=== PATIENT | male | born 1950 | race Caucasian/White ===

== ENCOUNTER 2020-08-09 13:07 | Emergency (ER) | payer OTHER ==
[2020-08-09 14:17] LABS: Absolute Lymphocytes (CBC) 2.4 K/uL (0.7-4.9); Basophils % 0.5 % (0-1.3); Hematocrit 41.5 % (39.6-49.0); Lymphocytes % 25.2 % (15.3-44.8); MPV 8.7 fL (7.6-11.3); RBC Red Blood Cell Count 4.47 M/uL (4.33-5.43)
[2020-08-09 14:17] LABS: Urine Blood 3+ (NEG); Urine Glucose 3+ (NEG); Urine Protein 1+ (NEG)
[2020-08-09] MEDS ORDERED: NA CHLORIDE 0.9% 500 ML ONE (14:32)
[2020-08-09 14:35] LABS: Urine Bacteria <20 /HPF (NONE SEEN); Urine RBC 20-50 /HPF (NONE SEEN)
[2020-08-09 14:36] LABS: ALT/SGPT 18 U/L (12-78); AST/SGOT 8 U/L (15-37); Albumin 3.6 g/dL (3.4-5.0); Alkaline Phosphatase 76 U/L (45-117); BUN Blood Urea Nitrogen 11 mg/dL (7-18); Bicarbonate 31 mmol/L (21-32); Bilirubin Direct < 0.1 mg/dL (0-0.2); Bilirubin Total 0.5 mg/dL (0.2-1.0); Glucose Level 356 mg/dL (74-106); Lipase 540 U/L (73-393); Potassium 4.1 mmol/L (3.5-5.1); Protein, Total 7.1 g/dL (6.4-8.2); Sodium Level 136 mmol/L (136-145)
[2020-08-09] MEDS ORDERED: INSULIN -REGULAR HUMAN 50 UNIT/0.5 ML ML ONE (15:51)
[2020-08-09] MEDS ORDERED: CEFTRIAXONE/SWI 1gm 1 GM/10 ML SYR ONE (15:51)
--- NOTE | 2020-08-09 16:19 | RAD REPORT ---
EXAM DESCRIPTION: CT - Stone Protocol - 08/09/2020 3:50 pm CLINICAL HISTORY: Hematuria COMPARISON: None. TECHNIQUE: Computed axial tomography of the abdomen pelvis was obtained without oral or IV contrast. Lack of IV and oral contrast limits evaluation of solid organs, bowel, and vessels. Coronal reformat abbey images were obtained and reviewed. All CT scans are performed using dose optimization technique as appropriate and may include automated exposure control or mA/KV adjustment according to patient size. FINDINGS: Two calculi right kidney measuring between 1 and 2 millimeters. No hydronephrosis. 5.4 joel timeter low-density right renal mass contains a few peripheral calcifications. A left renal calculus is not seen. A ureteral calculus is not visualized. No bladder calculus. The liver, spleen, pancreas and adrenals appear grossly normal There is no evidence of diverticulitis. The appendix appears normal Small inguinal hernias contain fat. Duodenal diverticulum. Spondylosis involves lumbar spine resultin g in spinal stenosis. Small hiatal hernia IMPRESSION: Small nonobstructing right renal calculi 5.4 centimeter low-density right renal mass contains a few peripheral calcifications. It probably is benign. It is recommended that the patient have a nonemergent renal ultrasound.
--- NOTE | 2020-08-09 16:37 | EDPHYS ---
Physician Documentation [facility] Name: Chapo Burr Age: 70 yrs Sex: Male : 1950 Arrival Date: 08/09/2020 Time: 13:10 Bed 19 Private MD: ED Physician Daniel Rosas HPI: 08/09 13:43 This 70 yrs old Male presents to ER via Ambulatory with complaints of Blood cp In Urine. 13:43 The patient presents with urinary symptoms, dysuria, hematuria. Onset: The cp symptoms/episode began/occurred 2 day(s) ago. Associated signs and symptoms: Pertinent positives: dysuria, hematuria, Pertinent negatives: abdominal pain, constipation, diarrhea, fever, nausea, vomiting. Severity of symptoms: in the emergency department the symptoms are unchanged, despite home interventions. Historical: - Allergies: 13:25 No Known Allergies; sv - PMHx: 13:25 Diabetes - NIDDM; sv - PSHx: 13:25 Tonsillectomy; sv - Immunization history:: Adult Immunizations up to date. - Social history:: Smoking status: Patient denies any tobacco usage or history of. ROS: 13:50 Constitutional: Negative for body aches, chills, fever, poor PO intake. cp 13:50 Eyes: Negative for injury, pain, redness, and discharge. cp 13:50 Cardiovascular: Negative for chest pain, edema, palpitations. 13:50 Respiratory: Negative for cough, shortness of breath, wheezing. 13:50 Abdomen/GI: Negative for abdominal pain, nausea, vomiting, and diarrhea, constipation, black/tarry stool, rectal bleeding. 13:50 : Positive for hematuria, burning with urination, Negative for penile discharge, testicular pain 13:50 Skin: Negative for rash. 13:50 Neuro: Negative for altered mental status, headache, weakness. 13:50 All other systems are negative. Exam: 13:55 Constitutional: The patient appears in no acute distress, alert, awake, comfortable, cp non-toxic, well developed, well nourished. 13:55 Head/Face: Normocephalic, atraumatic. cp 13:55 Eyes: Periorbital structures: appear normal, Conjunctiva: normal, no exudate, no injection, Sclera: no appreciated abnormality, Lids and lashes: appear normal, bilaterally. 13:55 ENT: External ear(s): are unremarkable, Nose: is normal, Mouth: Lips: moist, Oral mucosa: moist, Posterior pharynx: Airway: no evidence of obstruction, patent. 13:55 Chest/axilla: Inspection: normal, Palpation: is normal, no crepitus, no tenderness. 13:55 Cardiovascular: Rate: normal, Rhythm: regular, Edema: is not appreciated, JVD: is not appreciated. 13:55 Respiratory: the patient does not display signs of respiratory distress, Respirations: normal, no use of accessory muscles, no retractions, labored breathing, is not present, Breath sounds: are clear throughout, no decreased breath sounds, no stridor, no wheezing. 13:55 Abdomen/GI: Inspection: abdomen appears normal, Bowel sounds: active, all quadrants, Palpation: abdomen is soft and non-tender, in all quadrants. 13:55 Back: CVA tenderness, is absent. 13:55 Skin: cellulitis, is not appreciated, no rash present. 13:55 Neuro: Orientation: to person, place \T\ time. Mentation: is normal, Motor: moves all fours, strength is normal. Vital Signs: 13:25 BP 99 / 62; Pulse 83; Resp 16; Temp 98.3; Pulse Ox 100% ; Weight 77.11 kg; Height 5 ft. sv 10 in. (177.80 cm); Pain 0/10; 14:11 BP 105 / 65 Supine; Pulse 73; Resp 16; Pulse Ox 100% on R/A; mh5 14:13 BP 94 / 62 Sitting; Pulse 80; Resp 16; Pulse Ox 98% on R/A; mh5 14:15 BP 117 / 65 Standing; Pulse 81; Resp 16; Pulse Ox 99% on R/A; mh5 15:30 BP 138 / 58; Pulse 71; Resp 18; Pulse Ox 97% on R/A; zb 16:53 BP 142 / 62; Pulse 80; Resp 16; Pulse Ox 98% on R/A; zb 13:25 Body Mass Index 24.39 (77.11 kg, 177.80 cm) sv MDM: 13:41 Patient medically screened. cp 14:00 Differential diagnosis: UTI, prostatitis, urethritis, kidney stone, kidney carcinoma. cp 16:35 Data reviewed: vital signs, nurses notes, lab test result(s), radiologic studies, CT cp scan. 16:35 Counseling: I had a detailed discussion with the patient and/or guardian regarding: the cp historical points, exam findings, and any diagnostic results supporting the discharge/admit diagnosis, lab results, radiology results, the need for outpatient follow up, for definitive care, a family practitioner, a urologist, to return to the emergency department if symptoms worsen or persist or if there are any questions or concerns that arise at home. ED course: VSS. Labs and radiology studies reviewed. Patient appears non-toxic, labs negative for DKA. Patient reports he is attempting to manage diabetes with diet. Discussed today's blood glucose readings and kidney mass, recommendation for f/u with family physician and urology. Will discharge to home for continued monitoring. 08/09 13:34 Order name: Urine Microscopic Only; Complete Time: 15:16 cp 08/09 15:16 Interpretation: Normal except: UWBC 10-20; URBC 20-50. cp 08/09 13:38 Order name: Basic Metabolic Panel; Complete Time: 15:16 cp 08/09 15:22 Interpretation: Normal except: GLUC 356; GFR 85. cp 08/09 13:38 Order name: CBC with Diff; Complete Time: 15:16 cp 08/09 13:38 Order name: Hepatic Function; Complete Time: 15:16 cp 08/09 13:38 Order name: Lipase; Complete Time: 15:16 cp 08/09 13:44 Order name: CK; Complete Time: 15:16 cp 08/09 13:34 Order name: Urine Dipstick-Ancillary (obtain specimen); Complete Time: 14:20 cp 08/09 13:38 Order name: IV Saline Lock; Complete Time: 14:20 cp 08/09 14:06 Order name: Urine Dipstick--Ancillary (enter results); Complete Time: 15:16 bd 08/09 14:36 Order name: Urine Culture EDMS 08/09 15:17 Order name: CT Stone Protocol; Complete Time: 16:28 cp 08/09 13:38 Order name: Labs collected and sent; Complete Time: 14:19 cp 08/09 13:38 Order name: Orthostatics; Complete Time: 14:19 cp Administered Medications: 14:40 Drug: NS 0.9% 500 ml Route: IV; Rate: 500 ml/hr; Site: right forearm; zb 15:20 Follow up: Response: No adverse reaction; IV Status: Completed infusion; IV Intake: zb 500ml 15:41 Drug: Rocephin 1 grams Route: IV; Rate: calculated rate; Site: right forearm; zb 15:42 Drug: NovoLIN R 5 units {Co-Signature: bp (Den Tierney RN).} Route: Sub-Q; Site: left zb upper abdomen; Disposition: 17:35 Co-signature as Attending Physician, Daniel Rosas MD I agree with the assessment and kdr plan of care. Disposition: 08/09/20 16:36 Discharged to Home. Impression: Calculus of kidney, Diabetes mellitus due to underlying condition with hyperglycemia, Right Kidney Mass. - Condition is Stable. - Discharge Instructions: Type 2 Diabetes Mellitus, Diagnosis, Adult, Kidney Stones, Blood Glucose Monitoring, Adult, Diabetes Mellitus and Food. - Prescriptions for Metformin 500 mg Oral Tablet - take 1 tablet by ORAL route once daily for 7 days Then take 1 tablet with morning meals AND evening meals; 21 tablet. Cipro 500 mg Oral Tablet - take 1 tablet by ORAL route every 12 hours for 10 days; 20 tablet. - Medication Reconciliation Form, Thank You Letter, Antibiotic Education, Prescription Opioid Use form. - Follow up: Jose Rose MD; When: 2 - 3 days; Reason: right kidney mass. Follow up: Private Physician; When: 1 - 2 days; Reason: diabetes mellitus. - Problem is new. - Symptoms have improved. Signatures: Dispatcher [employer] EDMasha Rene RN RN sv Rittger, Kevin, MD MD kdr Paras Reece PA PA cp Brown, Zipporah, RN RN zb Den Tierney RN bp Corrections: (The following items were deleted from the chart) 16:55 16:36 08/09/2020 16:36 Discharged to Home. Impression: Calculus of kidney; Diabetes zb mellitus due to underlying condition with hyperglycemia; Right Kidney Mass. Condition is Stable. Forms are Medication Reconciliation Form, Thank You Letter, Antibiotic Education, Prescription Opioid Use. Follow up: Jose Rose; When: 2 - 3 days; Reason: right kidney mass. Follow up: Private Physician; When: 1 - 2 days; Reason: diabetes mellitus. Problem is new. Symptoms have improved. cp
--- NOTE | 2020-08-09 16:37 | ER ---
Nurse's Notes [facility] Name: Chapo Burr Age: 70 yrs Sex: Male : 1950 Arrival Date: 08/09/2020 Time: 13:10 Bed 19 Private MD: Diagnosis: Calculus of kidney;Diabetes mellitus due to underlying condition with hyperglycemia;Right Kidney Mass Presentation: 08/09 13:24 Chief complaint: Patient states: hematuria x 2 days. Coronavirus screen: Client denies sv travel out of the [place] in the last 14 days. At this time, the client does not indicate any symptoms associated with coronavirus-19. Ebola Screen: No symptoms or risks identified at this time. Risk Assessment: Do you want to hurt yourself or someone else? Patient reports no desire to harm self or others. Onset of symptoms was August 07, 2020. 13:24 Method Of Arrival: Ambulatory sv 13:24 Acuity: JANES 3 sv 13:25 Initial Sepsis Screen: Does the patient meet any 2 criteria? No. Patient's initial sv sepsis screen is negative. Does the patient have a suspected source of infection? No. Patient's initial sepsis screen is negative. Historical: - Allergies: 13:25 No Known Allergies; sv - PMHx: 13:25 Diabetes - NIDDM; sv - PSHx: 13:25 Tonsillectomy; sv - Immunization history:: Adult Immunizations up to date. - Social history:: Smoking status: Patient denies any tobacco usage or history of. Screenin:48 Abuse screen: Denies threats or abuse. Denies injuries from another. Nutritional zb screening: No deficits noted. Tuberculosis screening: No symptoms or risk factors identified. Fall Risk None identified. Assessment: 14:00 General: Appears in no apparent distress. comfortable, Behavior is calm, cooperative, zb appropriate for age. Pain: Complains of pain in groin Pain does not radiate. Quality of pain is described as burning, Aggravated by peeing. Neuro: Level of Consciousness is awake, alert, obeys commands, Oriented to person, place, time, situation. Cardiovascular: Capillary refill < 3 seconds in bilateral fingers Patient's skin is warm and dry. Respiratory: Airway is patent Respiratory effort is even, unlabored, Respiratory pattern is regular, symmetrical, Breath sounds are diminished bilaterally. GI: Abdomen is round non-distended, Bowel sounds present X 4 quads. Abd is soft and non tender X 4 quads. : Urine is cloudy, blood tinged, Reports burning with urination, since 3 days urinary frequency, since 3 days. EENT: No signs and/or symptoms were reported regarding the EENT system. Derm: Skin is intact, is healthy with good turgor, Skin is dry, Skin is normal, Skin temperature is warm. Musculoskeletal: Circulation, motion, and sensation intact. Capillary refill < 3 seconds, Range of motion: intact in all extremities. 15:00 Reassessment: Patient appears in no apparent distress at this time. Patient and/or zb family updated on plan of care and expected duration. Pain level reassessed. Patient is alert, oriented x 3, equal unlabored respirations, skin warm/dry/pink. pt waiting in room quietly. 15:45 Reassessment: pt taken for ct scan. zb 16:53 Reassessment: Patient appears in no apparent distress at this time. Patient and/or zb family updated on plan of care and expected duration. Pain level reassessed. Patient is alert, oriented x 3, equal unlabored respirations, skin warm/dry/pink. pt received d/c information. encourage to follow up with a provider. gait steady and even. Vital Signs: 13:25 BP 99 / 62; Pulse 83; Resp 16; Temp 98.3; Pulse Ox 100% ; Weight 77.11 kg; Height 5 ft. sv 10 in. (177.80 cm); Pain 0/10; 14:11 BP 105 / 65 Supine; Pulse 73; Resp 16; Pulse Ox 100% on R/A; mh5 14:13 BP 94 / 62 Sitting; Pulse 80; Resp 16; Pulse Ox 98% on R/A; mh5 14:15 BP 117 / 65 Standing; Pulse 81; Resp 16; Pulse Ox 99% on R/A; mh5 15:30 BP 138 / 58; Pulse 71; Resp 18; Pulse Ox 97% on R/A; zb 16:53 BP 142 / 62; Pulse 80; Resp 16; Pulse Ox 98% on R/A; zb 13:25 Body Mass Index 24.39 (77.11 kg, 177.80 cm) sv ED Course: 13:10 Patient arrived in ED. ag5 13:24 Triage completed. sv 13:24 Arm band placed on. sv 13:33 Paras Reece PA is PHCP. cp 13:33 Daniel Rosas MD is Attending Physician. cp 13:35 Rosa Maria Belcher, CRYSTAL is Primary Nurse. zb 14:20 Urine Microscopic Only Sent. mh5 14:23 Patient has correct armband on for positive identification. Bed in low position. Call mh5 light in reach. Pulse ox on. NIBP on. 14:23 Urine collected: clean catch specimen, cloudy. mh5 14:48 Inserted saline lock: 20 gauge in right forearm, using aseptic technique. zb 15:48 CT Stone Protocol In Process Unspecified. EDMS 16:34 Jose Rose MD is Referral Physician. cp 16:54 No provider procedures requiring assistance completed. IV discontinued, intact, zb bleeding controlled, No redness/swelling at site. Pressure dressing applied. Administered Medications: 14:40 Drug: NS 0.9% 500 ml Route: IV; Rate: 500 ml/hr; Site: right forearm; zb 15:20 Follow up: Response: No adverse reaction; IV Status: Completed infusion; IV Intake: zb 500ml 15:41 Drug: Rocephin 1 grams Route: IV; Rate: calculated rate; Site: right forearm; zb 15:42 Drug: NovoLIN R 5 units {Co-Signature: bp (Den Tierney RN).} Route: Sub-Q; Site: left zb upper abdomen; Intake: 15:20 IV: 500ml; Total: 500ml. zb Outcome: 16:36 Discharge ordered by MD. cp 16:55 Discharged to home ambulatory. zb 16:55 Condition: stable 16:55 Discharge instructions given to patient, Instructed on discharge instructions, follow up and referral plans. medication usage, Demonstrated understanding of instructions, follow-up care, medications, Prescriptions given X 2. 16:55 Patient left the ED. zb Signatures: Dispatcher [employer] EDNE Masha Mariee RN RN sv Page, Corey, PA PA cp Martinez, Maria 5 Fredrick Rhodes ag5 Rosa Maria Belcher RN RN ztony Tierney RN bp Corrections: (The following items were deleted from the chart) 13:27 13:25 Pulse 83bpm; Resp 16bpm; Pulse Ox 100%; Temp 98.3F; 77.11 kg; Height 5 ft. 10 sv in.; BMI: 24.3; Pain 0/10; sv
[2020-08-09 16:59] VITALS: TEMP 98.3
[2020-08-09 17:05] VITALS: BP 142/62; O2SAT 98
== END 2020-08-09 16:55 | disposition home or self-care (01) ==
LOC: ER 13:07
DX: N20.0 Calculus of kidney (principal); E11.65 Type 2 diabetes mellitus with hyperglycemia; N28.89 Other specified disorders of kidney and ureter
CPT/HCPCS: 87088; 85025; 87086; 80048; 36415; 82550; 80076; 83690; 76377; 74176; J0696; J7040; 81003; 81015; 87077; 87186; 96361; 96372; 96374; 99284

== ENCOUNTER 2021-01-14 17:20 | Emergency (ER) | payer OTHER ==
--- OUTSIDE RECORDS SUMMARY | 2021-01-14 17:23 | XMS REPORT | Continuity of Care Document ---
:1950 Author Organization [facility] t Address [address] [place] [address] Care Team Providers Name Role Phone Unavailable Unavailable Unavailable Problems This patient has no known problems. Allergies, Adverse Reactions, Alerts This patient has no known allergies or adverse reactions. Medications This patient has no known medications. Procedures This patient has no known procedures. Encounters Start End Encounter Admission Attending Care Care Encounter Source Date/Time Date/Time Type Type Clinicians Facility Department ID 2020-12-20 2020-12-20 Outpatient [facility] [id number] JAKOB Kim 00:00:00 00[facility]00:00 [facility] 2020-11-18 2020-11-18 Outpatient [facility] [id number] [facility] 00:00:00 00:00:00 [facility] 2020-10-24 2020-10-24 Outpatient [facility] [id number] [facility] 00[facility]00:00 00[facility]00:00 [facility] 2020-09-25 2020-09-25 Outpatient [facility] [id number] [facility] 00:00:00 [facility]00:00 [facility] 2020-09-25 2020-09-25 Outpatient [facility] [id number] [facility] 00[facility]00:00 00[facility]00:00 [facility] 2020-09-12 2020-09-12 Outpatient [facility] [id number] [facility] 00[facility] 00:[facility]:00 [facility] 2020-08-25 2020-08-25 Outpatient [facility] [id number] [facility] 00:[facility] 00[facility]:00 [facility] Results This patient has no known results.
[2021-01-14 18:18] LABS: Absolute Lymphocytes (CBC) 1.3 K/uL (0.7-4.9); Basophils % 0.3 % (0-1.3); Hematocrit 41.4 % (39.6-49.0); Lymphocytes % 17.8 % (15.3-44.8); MPV 8.2 fL (7.6-11.3); RBC Red Blood Cell Count 4.55 M/uL (4.33-5.43)
[2021-01-14 18:22] LABS: Protime INR 1.15
[2021-01-14 18:39] LABS: ALT/SGPT 62 U/L (12-78); AST/SGOT 75 U/L (15-37); Albumin 3.3 g/dL (3.4-5.0); Alkaline Phosphatase 63 U/L (45-117); BUN Blood Urea Nitrogen 26 mg/dL (7-18); Bicarbonate 25 mmol/L (21-32); Bilirubin Direct 0.4 mg/dL (0-0.2); Glucose Level 200 mg/dL (74-106); Magnesium 2.5 mg/dL (1.8-2.4); NT PRO-BNP 89 pg/mL (<125); Potassium 3.7 mmol/L (3.5-5.1); Protein, Total 7.2 g/dL (6.4-8.2); Sodium Level 133 mmol/L (136-145); Troponin (Emerg Dept Use Only) < 0.02 ng/mL (0.0-0.045)
--- NOTE | 2021-01-14 19:10 | RAD REPORT ---
EXAM DESCRIPTION: RAD - Chest Single View - 01/14/2021 6:16 pm CLINICAL HISTORY: fever, sob Chest pain. COMPARISON: No comparisons FINDINGS: Portable technique limits examination quality. Mild reticular opacities in both lung bases probably represents atypical infection. No airspace conso lidation typical of bacterial pneumonia is seen. The heart is normal in size. No displaced fractures.
[2021-01-14] MEDS ORDERED: dexAMETHasone 10 MG/ML VIAL ONE (19:49)
--- NOTE | 2021-01-14 21:26 | ER ---
Nurse's Notes [facility] Name: Chapo Burr Age: 70 yrs Sex: Male : 1950 Arrival Date: 01/14/2021 Time: 17:21 Bed 4 Private MD: Diagnosis: Coronavirus - Hypoxia Presentation: 01/14 17:22 Chief complaint: EMS states: Pt c/o SOB, body aches and fever, symptoms began ph yesterday, SO recently dx w/ COVID. Room air Spo2 92%, improved to 98% on 4L NC, T 101.5, HR 83, BP 134/78. Coronavirus screen: cough unrelated to allergies, difficulty breathing, fever, muscle pain, shortness of breath, Client presents with at least one sign or symptom that may indicate coronavirus-19. Standard/surgical mask placed on the client. Provider contacted for isolation considerations. Ebola Screen: No symptoms or risks identified at this time. Initial Sepsis Screen: Does the patient meet any 2 criteria? RR > 20 per min. Does the patient have a suspected source of infection? Yes: Productive cough/pneumonia. Risk Assessment: Do you want to hurt yourself or someone else? Patient reports no desire to harm self or others. Onset of symptoms was January 14, 2021. 17:22 Method Of Arrival: EMS: [facility] ph 17:22 Acuity: JANES 3 ph Historical: - Allergies: 17:26 No Known Allergies; ph - PMHx: 17:26 Diabetes mellitus; insulin dependent; ph - Immunization history:: Client reports having NOT received the Covid vaccine. - Social history:: Smoking status: Patient denies any tobacco usage or history of. Screenin:28 Abuse screen: Denies threats or abuse. Denies injuries from another. Nutritional ph screening: No deficits noted. Tuberculosis screening: No symptoms or risk factors identified. Fall Risk None identified. Assessment: 17:28 General: Appears in no apparent distress. comfortable, Behavior is calm, cooperative, ph appropriate for age, Reports chills for fever for 1-2 days. Pain: Complains of pain in "all over". Neuro: Level of Consciousness is awake, alert, obeys commands, Oriented to person, place, time, situation. Cardiovascular: Capillary refill < 3 seconds in bilateral fingers Patient's skin is warm and dry. Respiratory: Reports shortness of breath at rest Airway is patent Respiratory effort is even, unlabored, Respiratory pattern is tachypnea. GI: No signs and/or symptoms were reported involving the gastrointestinal system. Derm: Skin is fragile, is thin, Skin is pink, warm \\T\\ dry. Musculoskeletal: Circulation, motion, and sensation intact. Range of motion: intact in all extremities. 19:06 Reassessment: Patient appears in no apparent distress at this time. Patient and/or ph family updated on plan of care and expected duration. Pain level reassessed. Patient is alert, oriented x 3, equal unlabored respirations, skin warm/dry/pink. 20:38 Reassessment: Pt ambulated approx 50 Ft, O2 sats on RA at 90% after ambulating. ea 21:42 Reassessment: Patient and/or family updated on plan of care and expected duration. Pain ea level reassessed. Patient is alert, oriented x 3, equal unlabored respirations, skin warm/dry/pink. Pt ambulated to restroom, RA O2 sats at 88% RA, pt placed on O2 at 2 L per nasal cannula. 01/15 02:12 General: report called to rn at [facility]. ak2 Vital Signs: 01/14 17:22 BP 147 / 75; Pulse 80; Resp 22; Temp 99.5(O); Pulse Ox 96% on R/A; Weight 80.74 kg; ph Height 5 ft. 9 in. (175.26 cm); 18:30 BP 127 / 74; Pulse 74; Resp 21; Pulse Ox 97% on R/A; sv 19:06 BP 127 / 74; Pulse 77; Resp 18; Pulse Ox 99% on R/A; ph 20:30 Pulse Ox 90% on R/A; dh4 21:41 BP 117 / 72; Pulse 74; Resp 24; Pulse Ox 88% on R/A; ea 23:03 BP 112 / 64; Pulse 74; Resp 20; Pulse Ox 98% on 2 lpm NC; ea 01/15 01:05 BP 110 / 68; Pulse 76; Resp 16; Pulse Ox 98% on 2 lpm NC; ak2 02:29 BP 113 / 72; Pulse 72; Resp 16; Pulse Ox 98% on R/A; ak2 01/14 17:22 Body Mass Index 26.29 (80.74 kg, 175.26 cm) ph 07/18 21:41 pt placed on O2 at 2 L per nasal cannula ea ED Course: 17:21 Patient arrived in ED. ds1 17:26 Triage completed. ph 17:27 Arm band placed on Patient placed in an exam room, on thermograph operator, on pulse ph oximetry. 17:28 Patient has correct armband on for positive identification. Bed in low position. Call ph light in reach. Side rails up X 1. tug master on. Pulse ox on. NIBP on. Door closed. Noise minimized. 17:31 Jermaine Benoit PA is PHCP. jm 17:31 Yared Lainez MD is Attending Physician. jmm 17:50 First set of blood cultures drawn by me. sv 18:00 Second set of blood cultures drawn by me. Inserted saline lock: 20 gauge in right sv forearm, using aseptic technique. Blood collected. Flushed right forearm with 2 ml normal saline. 18:08 Caprice Tipton RN is Primary Nurse. ph 18:10 COVID-19 : Document "Date of Symptom Onset" if Symptomatic. Sent. sv 18:10 Basic Metabolic Panel Sent. sv 18:16 XRAY Chest (1 view) In Process Unspecified. EDMS 18:54 EKG done, by ED staff, reviewed by Jermaine BERNARD. sv 19:09 Report given to Yesy RN and Otf RN. sv 19:32 Primary Nurse role handed off by Caprice Tipton, RN tt3 22:42 CT Chest For PE Angio In Process Unspecified. EDMS 01/15 00:08 Faxed pt chart to [facility] to initiate transfer. tt3 00:23 Zenaida Huffman called back from [facility] to speak with MARCO ANTONIO Luna, pt provider tt3 regarding the transfer request. 00:32 Initiated transfer with Shayla White from [facility]. Stated she tt3 would page the hospitalist at the [facility] after confirming during initiating that the pt was okay with going to the [facility]. Information passed on to MARCO ANTONIO Luna, pt provider. 00:57 Shayla White called back with the hospitalist from [facility] to tt3 consult with MARCO ANTONIO Luna, pt provider, regarding the transfer request. 01:37 Margoth Nick gave admin approval. The pt is going to [address] The accepting physician is Dr. Zayas. Nurse to call report to . Face sheet to be faxed to per Margoth's request. 02:30 No provider procedures requiring assistance completed. ak2 Administered Medications: 01/14 19:30 Drug: Decadron - Dexamethasone 10 mg Route: IVP; Site: left antecubital; ph 23:03 Follow up: Response: No adverse reaction ea Outcome: 21:26 Discharge ordered by . leanne 01/15 01:02 ER care complete, transfer ordered by MD. reddy 02:30 Transferred by ground EMS to [facility]. ak2 02:30 Condition: good 02:30 Patient left the ED. ak2 Signatures: Dispatcher [employer] Masha Reyes, RN Jermaine Leon PA PA jmm Sanford, Demi ds1 Caprice Tipton RN RN ph Antunez, Elena RN Ayo Brownlee ea 4 Liset, Suhas 3 Alvaro Valdez2
--- NOTE | 2021-01-14 21:26 | EDPHYS ---
Physician Documentation [facility] Name: Chapo Burr Age: 70 yrs Sex: Male : 1950 Arrival Date: 01/14/2021 Time: 17:21 Bed 4 Private MD: ED Physician Yared Lainez HPI: 01/14 17:43 This 70 yrs old Male presents to ER via EMS with complaints of Covid Exposure.jmm 17:43 Onset: The symptoms/episode began/occurred gradually, 2 week(s) ago. Modifying factors: jmm The symptoms are alleviated by nothing, the symptoms are aggravated by exertion. Associated signs and symptoms: Pertinent negatives: fever. This is a 70 year old male with a history of DM, that presents to the ED with complaints of cough, sob, weakness that began approx 2 weeks ago. Admits to exposure to covid 19. Denies chest pain, abdominal pain, vomiting, diarrhea. . Historical: - Allergies: 17:26 No Known Allergies; ph - PMHx: 17:26 Diabetes mellitus; insulin dependent; ph - Immunization history:: Client reports having NOT received the Covid vaccine. - Social history:: Smoking status: Patient denies any tobacco usage or history of. ROS: 17:43 Constitutional: Positive for body aches, chills. jmm 17:43 Respiratory: Positive for cough. 17:43 Neuro: Positive for weakness. 17:43 All other systems are negative. Exam: 17:43 Constitutional: This is a well developed, well nourished patient who is awake, alert, jmm and in no acute distress. Head/Face: atraumatic. Eyes: EOMI, no conjunctival erythema appreciated ENT: Moist Mucus Membranes Neck: Trachea midline, Supple Chest/axilla: Normal chest wall appearance and motion. Cardiovascular: Regular rate and rhythm. No edema appreciated Respiratory: Normal respirations, no respiratory distress appreciated Abdomen/GI: Non distended, soft Back: Normal ROM Skin: General appearance color normal MS/ Extremity: Moves all extremities, no obvious deformities appreciated, no edema noted to the lower extremities Neuro: Awake and alert, normal gait Psych: Behavior is normal, Mood is normal, Patient is cooperative and pleasant Vital Signs: 17:22 BP 147 / 75; Pulse 80; Resp 22; Temp 99.5(O); Pulse Ox 96% on R/A; Weight 80.74 kg; ph Height 5 ft. 9 in. (175.26 cm); 18:30 BP 127 / 74; Pulse 74; Resp 21; Pulse Ox 97% on R/A; sv 19:06 BP 127 / 74; Pulse 77; Resp 18; Pulse Ox 99% on R/A; ph 20:30 Pulse Ox 90% on R/A; dh4 21:41 BP 117 / 72; Pulse 74; Resp 24; Pulse Ox 88% on R/A; ea 23:03 BP 112 / 64; Pulse 74; Resp 20; Pulse Ox 98% on 2 lpm NC; ea 01/15 01:05 BP 110 / 68; Pulse 76; Resp 16; Pulse Ox 98% on 2 lpm NC; ak2 02:29 BP 113 / 72; Pulse 72; Resp 16; Pulse Ox 98% on R/A; ak2 01/14 17:22 Body Mass Index 26.29 (80.74 kg, 175.26 cm) ph 01/14 21:41 pt placed on O2 at 2 L per nasal cannula ea MDM: 17:43 Patient medically screened. [facility] 21:25 Data reviewed: vital signs, nurses notes. Counseling: I had a detailed discussion with leanne the patient and/or guardian regarding: the historical points, exam findings, and any diagnostic results supporting the discharge/admit diagnosis, lab results, radiology results, the need for outpatient follow up, to return to the emergency department if symptoms worsen or persist or if there are any questions or concerns that arise at home. ED course: Labs unremarkable. VS WNL. Patient advised to follow up with pcp and otherwise given strict return precautions. patient understood and agrees with the plan of care. . 01/15 01:00 ED course: Patient's destated on ambulation. I discussed the patient with Dr. Trimble whom leanne accepted the patient at [facility]. . 01/14 17:44 Order name: Basic Metabolic Panel [facility] 01/14 17:44 Order name: CBC with Diff; Complete Time: 18:25 [facility] 01/14 17:44 Order name: LFT's; Complete Time: 18:41 [facility] 01/14 17:44 Order name: Magnesium; Complete Time: 18:41 [facility] 01/14 17:44 Order name: NT PRO-BNP; Complete Time: 18:41 [facility] 01/14 17:44 Order name: PT-INR; Complete Time: 18:25 [facility] 01/14 17:44 Order name: Troponin (emerg Dept Use Only); Complete Time: 18:41 [facility] 01/14 17:45 Order name: Basic Metabolic Panel; Complete Time: 18:41 [facility] 01/14 17:48 Order name: COVID-19 : Document "Date of Symptom Onset" if Symptomatic. [facility] 01/14 17:48 Order name: Lactate; Complete Time: 18:41 [facility] 01/14 17:48 Order name: Procalcitonin; Complete Time: 19:09 [facility] 01/14 17:48 Order name: Blood Culture Adult (2) [facility] 01/14 17:44 Order name: XRAY Chest (1 view); Complete Time: 19:12 [facility] 01/14 17:44 Order name: EKG; Complete Time: 17:45 [facility] 01/14 17:44 Order name: Cardiac monitoring; Complete Time: 18:09 [facility] 01/14 17:44 Order name: EKG - Nurse/Tech; Complete Time: 18:51 [facility] 01/14 17:44 Order name: IV Saline Lock; Complete Time: 18:10 [facility] 01/14 17:44 Order name: Labs collected and sent; Complete Time: 18:10 [facility] 01/14 17:44 Order name: O2 Per Protocol; Complete Time: 18:10 [facility] 01/14 17:44 Order name: O2 Sat Monitoring; Complete Time: 18:10 [facility] 01/14 19:13 Order name: SARS-COV-2 RT PCR; Complete Time: 19:17 [facility] 01/14 19:41 Order name: Misc. Order: ambulate, o2 check; Complete Time: 20:38 [facility] 01/14 21:29 Order name: CT Chest For PE Angio [facility] Administered Medications: 01/14 19:30 Drug: Decadron - Dexamethasone 10 mg Route: IVP; Site: left antecubital; ph 23:03 Follow up: Response: No adverse reaction ea Disposition Summary: 01/15/21 01:02 Transfer Ordered Transfer Location: Other Acute Care Facility [facility] Reason: Higher level of care [facility] Condition: Stable(01/15/21 01:02) [facility] Problem: new [facility] Symptoms: are unchanged [facility] Accepting Physician: Dr. Trimble(01/15/21 02:30) ak2 Diagnosis - Coronavirus - Hypoxia [facility] Forms: - Medication Reconciliation Form [facility] - SBAR form [facility] Addendum: 01/16/2021 23:23 Co-signature as Attending Physician, Yared Lainez MD. r n Signatures: Dispatcher [employer] EDMS Jermaine Benoit, PA PA Yared Valente MD MD rn Hall, Patricia, RN RN [facility] Yesy Connor RN, ea Corrections: (The following items were deleted from the chart) 01/14 18:19 17:48 CORONAVIRUS ordered. [facility] 21:28 21:26 Home [facility] 21:28 21:26 Stable [facility] 21:28 21:26 Coronavirus infection, unspecified [facility] 01/15 02:30 01:02 Dr. Trimble [facility] ak2
[2021-01-15 02:37] VITALS: TEMP 99.5
[2021-01-15 02:45] VITALS: O2SAT 98
[2021-01-15 02:48] VITALS: BP 113/72
--- NOTE | 2021-01-15 09:58 | RAD REPORT ---
EXAM DESCRIPTION: CT - Chest For Pe Angio - 01/15/2021 4:52 am CLINICAL HISTORY: SOB. COMPARISON: None. TECHNIQUE: CTA of the chest was performed following intravenous administration of iodinated contrast . Axial soft tissue and lung window, and coronal and sagittal soft tissue window reconstructions were created and sent to PACS. 3D postprocessing was performed on an independent workstation, with images sent to PACS for subsequen t review. This exam was performed according to our departmental dose-optimization program, which includes autom ated exposure control, adjustment of the mA and/or kV according to patient size and/or use of iterati ve reconstruction technique. FINDINGS: Vascular: The pulmonary arteries are well-opacified to the segmental level. No CT evidence of acute pulmonary thromboembolism. No evidence of aortic aneurysm or dissection. Lungs and pleura: Moderate groundglass opacities with associated interstitial thickening in the perip eryn of the lungs, most prominent in the bilateral lower lobes. No pleural effusion. No pneumothorax. Mediastinum and neck: No mediastinal lymphadenopathy by CT size criteria. Unremarkable appearance of the thyroid gland. Cardiac: No cardiomegaly or pericardial effusion. Abdomen: A partially imaged cystic structure in the right upper abdomen could represent a superior ri ght renal cyst which measures at least 5.1 cm. Musculoskeletal: No concerning osseous abnormality. IMPRESSION: 1. No CTA evidence of acute pulmonary thromboembolism. 2. Moderate groundglass opacities with associated interstitial thickening in the periphery of the l ungs, most prominent in the bilateral lower lobes. Correlate for infectious/inflammatory etiology. 3. Partially imaged cystic structure in the right upper abdomen could represent a superior right re nal cyst which measures at least 5.1 cm. Electronically signed by: Fela Solis MD 01/14/2021 10:58 PM CDT Due to temporary technical issues with the PACS/Fluency reporting system, reports are being signed by the in house radiologist without review as a courtesy to ensure prompt reporting. The interpreting r adiologist is fully responsible for the content of the report.
== END 2021-01-15 02:30 ==
LOC: ER 17:20
DX: U07.1 COVID-19 (principal); R09.02 Hypoxemia; E11.9 Type 2 diabetes mellitus without complications
CPT/HCPCS: 93005; 87040 ×2; 85025; 80048; 36415; 83735; 85610; 80076; 83605; 84484; 84145; 83880; 71275; 71045; 96374; 99285; U0003; Q9967; J1100

== ENCOUNTER 2021-01-22 07:03 | Inpatient (IN) | payer OTHER ==
--- OUTSIDE RECORDS SUMMARY | 2021-01-22 07:07 | XMS REPORT | Continuity of Care Document ---
:1950 Author Organization [facility] t Address [address] [place] [address] Care Team Providers Name Role Phone Chana LOPEZ Attending Clinician Sheikh JOHN, Violette Attending Clinician CHANA Attending Clinician Unavailable CHANA Admitting Clinician Unavailable Payers Payer Name Policy Type Policy Effective Date Expiration Date Sour ce Number MEDICAREMEDICARE A [id number] 2014 [facility] [id number] 2013[facility]P [facility] Problems Condition Condition Condition Status Onset Resolution Last Treating Co mments Source Name Details Category Date Date Treatment Clinician Date COVID-19 COVID-19 Disease Active [facility] infection infection 00:[facility]: kris 00 Center Allergies, Adverse Reactions, Alerts This patient has no known allergies or adverse reactions. Social History Social Habit Start Date Stop Date Quantity Comments Source History of Cigarette Smoker [facility] - tobacco use Medical Cent[facility] r Sex Assigned At [facility] Exposure to Not sure [facility] - SARS-CoV-2 [facility] (event) Tobacco use and 2021-01-15 2021-01-[address] [facility] [address] [facility] - exposure 00:00:00 00:00:00 Medical Center Smoking Status Start Date Stop Date Source Current every day smoker 2021-01-15 00:00:00 [facility] Center Medications Ordered Filled Start Stop Current Ordering Indication Dosage Frequency Signature Comments Components Source Medication Medication Date Date Medication? Clinician (SIG) Name Name insulin Yes type 2 20U Q.5D Inject [address] glargine 7-20 diabetes Units [facility] - (LANTUS) 16:42: mellitus subcutaneo Medical 100 unit/mL 13 usly 2 Center injection (two) times daily Use as directed . gabapentin Yes 300mg [id number] Take [address] (NEURONTIN) 7-20 [id number] mg by L ukes - 300 MG 16:42: 3D mouth 3 Medical capsule 13 (three) Center times daily . famotidine 2020- Yes 20mg Take [address] (PEPCID) 20 7-20 07-30 tablet (20 [facility] - MG tablet 00:00: 23:59 mg total) Me dical 00 :00 by mouth Center every 12 (twelve) hours for 10 days. dexAMETHaso 2020- Yes 6mg Take [address] ne 7-20 07-28 tablet (6 [facility] - (DECADRON) 00:00: 23:59 mg total) M edical 6 MG tablet 00 :00 by mouth Cent er daily with breakfast for 8 days. atorvastati Yes [address] [facility] (Lipitor) 3-29 Orally [facility] - 10 MG 00:00: Once a day Medica l tablet 00 for 90 Center days insulin Yes Inject 10 [facility] degludec 3-29 units [facility] - (Tresiba 00:00: Subcutaneo Med ical FlexTouch 00 us once a Cente r U-200) 200 day for 90 unit/mL (3 days mL) InPn levothyroxi Yes [address] [facility] 3-29 in the [facility] - (SYNTHROID, 00:00: morning on Medical LEVOTHROID) 00 an empty Cent er 25 MCG stomach tablet Orally Once a day for 90 days Vital Signs Vital Name Observation Time Observation Value Comments Source Systolic blood 2021-01-16 11:14:00 108 mm[Hg] [facility] Diastolic blood 2021-01-16 11:14:00 66 mm[Hg] [facility] Heart rate 2021-01-16 11:14:00 61 /min [facility] Body temperature 2021-01-16 11:14:00 35 Anyi [facility] Respiratory rate 2021-01-16 11:14:00 19 /min [facility] Oxygen saturation in 2021-01-16 11:14:00 96 /min [facility] Arterial blood by Medical Ce nter Pulse oximetry Body height 2021-01-15 04:24:00 177.8 cm [facility] Body weight 2021-01-15 04:24:00 78.019 kg [facility] BMI 2021-01-15 04:24:00 24.68 kg/m2 [facility] Procedures Procedure Date / Time Performed Performing Clinician Sour e POCT-GLUCOSE METER 2021-01-16 11:12:00 [facility] POCT-GLUCOSE METER 2021-01-16 06:24:00 [facility] CBC W/PLT COUNT & AUTO 2021-01-16 04:29:00 kody [facility] BASIC METABOLIC PANEL (7) 2021-01-16 04:29:00 Renetta [facility] C-REACTIVE PROTEIN 2021-01-16 04:29:00 Renetta [facility] PROCALCITONIN 2021-01-16 04:29:00 Janet Shahid [facility] D-DIMER 2021-01-16 04:29:00 Janet [facility] XR CHEST 1 VIEW 2021-01-16 03:59:00 Janet Shahid [facility] PORTABLE/BEDSIDE Medical Center POCT-GLUCOSE METER 2021-01-15 16:39:00 Lizzie Zayas [facility] SARS-COV2/RT-PCR ([facility] & 2021-01-15 11:38:00 Shahid Gonzales [facility] - REF LABS) [facility] CBC W/PLT COUNT & AUTO 2021-01-15 11:38:00 Renetta [facility] S [facility] - DIFFERENTIAL [facility] C-REACTIVE PROTEIN 2021-01-15 11:38:00 Renetta [facility] PROCALCITONIN 2021-01-15 11:38:00 Shahid Gonzales [facility] D-DIMER 2021-01-15 11:38:00 Janet [facility] COMPREHENSIVE METABOLIC 2021-01-15 11:38:00 Shahid Gonzales [facility] PANEL [facility] (MANUAL DIFFERENTIAL) 2021-01-15 11:38:00 [facility] XR CHEST 1 VIEW 2021-01-15 10:06:00 [facility] POCT-GLUCOSE METER 2021-01-15 05:14:00 Lizzie [facility] REPORT OF PROCEDURE - 2021-01-15 00:00:00 ProviderLea [facility] - ENDOSCOPY SCAN Scanning [facility] Plan of Care Planned Activity Planned Date Details Comments Source Future Scheduled 2021-02-28 INFLUENZA VACCINE (#1) [facility] 00:00:00 [code = INFLUENZA Medical Ce nter VACCINE (#1)] Future Scheduled 2020-06-[address] [facility] - Test 00:00:00 (12+) [code = Medical Center DEPRESSION SCREENING (12+)] Future Scheduled 2020-06-30 FALLS RISK SCREENING [facility] - Test 00:00:00 [code = FALLS RISK Medical C enter SCREENING] Future Scheduled 2015-03-[address] [facility] - Test 00:00:00 WELLNESS (YEAR 2 or Medical Center FIRST YEAR if no IPPE) [code = MEDICARE ANNUAL WELLNESS (YEAR 2 or FIRST YEAR if no IPPE)] Future Scheduled 2014 PNEUMOCOCCAL 65+ YRS [facility] - Test 00:00:00 (1 of 1 - Medical Center [id number] PCV13) [code = PNEUMOCOCCAL 65+ YRS (1 of 1 - [id number] PCV13)] Future Scheduled 1999 SHINGLES VACCINES ([address] [facility] - Test 00:00:00 of 2) [code = SHINGLES Medic al Center VACCINES (1 of 2)] Future Scheduled 1968 DTAP/TDAP/TD VACCINES [facility] Test 00:00:00 (1 - Tdap) [code = Medical C enter DTAP/TDAP/TD VACCINES (1 - Tdap)] Future Scheduled 1967 HEPATITIS C SCREENING [facility] - Test 00:00:00 [code = HEPATITIS C Medical Center SCREENING] Future Scheduled 1961 COVID-19 VACCINE (1) [facility] - Test 00:00:00 [code = COVID-[address] VACCINE (1)] Future Scheduled [address] [facility] - Test 00:00:00 malignant neoplasm of Medica l Center colon (procedure) [code = 051162447] Encounters Start End Encounter Admission Attending Care Care Encounter Source Date/Time Date/Time Type Type Clinicians Facility Department ID 2020-12-20 2020-12-20 Outpatient [facility] [id number] [facility] 00[facility]00[facility]00 [facility] 2020-11-18 2020-11-18 Outpatient [facility] [id number] [facility] 00:00:00 [facility]00[facility] 2020-10-24 2020-10-24 [id number] 00:00:00 00[facility]00[facility] 2020-09-25 2020-09-25 Outpatient [facility] [id number] [facility] 00:00:00 00[facility]00[facility] 2020-09-25 2020-09-25 Outpatient [facility] [id number] [facility] 00:00:00 [facility]00[facility] 2020-09-12 2020-09-12 Outpatient [facility] [id number] [facility] 2020-08-25 2020-08-25 Outpatient [facility] [id number] [facility]00 [facility] Results Test Description Test Time Test Comments Results Result Comments Source POC-Glucose meter 2021-01-16 11:23:00 Test Item Value Reference Range Interpretation Comme nts POC-Glucose Meter (test code = 257 mg/dL 70-110 H : TESTED AT [facility] [place] [address]) SELAM YADAV, [facility] [address]: Catalyst Concentration Operator/Techni junito ID = [id number] for Loyda Rodríguez Lab Interpretation (test code = Abnormal 29895-8) [facility] [id number] 11:23:00 Test Item Value Reference Range Interpretation Comments POC-GLUCOSE METER 257 mg/dL 70-110 H : TESTED A T [facility] (BEAKER) (test code [address] D SELAM YADAV, = 1538) [facility] [address]: Catalyst Concentration Operator/Techni junito ID = [id number] for Loyda Ramirez [id number] 09:19:00 Test Item Value Reference Range Interpretation Comments Procalcitonin (test <0.05 See_Comment [Automa delaney code = 06997-5) message] The system which generated this result transmit delaney reference range : <0.05 ng/mL. e reference range was not used to interpret this result as normal/abnormal . STARR (test code = STARR) SEPSIS RISK (ng/mL)Low: 0.05-0.50Inter mediate: 0.51-2.00High: >=2.01 Lab Interpretation Normal (test code = 68660-2) [facility] 09:19:00 Test Item Value Reference Range Interpretation Comments PROCALCITONIN (BEAKER) (test code = < ng/mL <0.05 3036) SEPSIS RISK (ng/mL)Low: 0.05-0.50Intermediate: 0.51-2.00High: >=2.01RAD, CHEST, 1 VIEW, NON [id number] 08:06:00Reason for exam:- >PneumoniaShould this be performed at the bedside?->Yes [facility] : 1950 Sex: MFINAL REPORT Chest AP portable erect Comparison exam: 01/15/2021 Hist ory provided: Pneumonia Heart size normal. Lungs remain grossly clear and vascularity normal. Signed: Baldemar Montalvo Verified Date/Time: 01/16/2021 08:06:30 Reading Location: [facility] Diagnostic Imaging Reading Room [place] [address] [id number] 08 :06 AMXR chest 1 view portable / [id number] 08:06:00Interface, External Ris In - 01/16/2021 8:08 AM CDTFINAL REPORT Chest AP portable erect Comparison exam: 01/15/2021 History provided: Pneumonia Heart size normal. Lungs remain grossly clear and vascularity normal. Signed: Baldemar Montalvo Verified Date/Time: 01/16/2021 08:06:30 Reading Location: [facility] Diagnostic Imaging Reading Room - [facility] 1.310.12 Electronicallysigned by: BALDEMAR MONTALVO on 01/16/2021 08:06 [facility] [id number] 06:36:00 Test Item Value Reference Range Interpretation Comments POC-GLUCOSE METER 254 mg/dL 70-110 H : TESTED A T [facility] (BEAKER) (test code CHASEWOO Irvin SELAM YADAV, = 1538) [place] [address]: Catalyst Concentration Operator/Techni junito ID = [id number] for Balt ie, Sergeopher CBC with platelet count + automated [id number] 05:37:00 Test Item Value Reference Range Interpretation Comments WBC (test code = 7.5 See_Comment [Automated message] 4090-2) The system Junko Tada generated this result transmitted ref erence range: 4.0 - 10 .0 K/L. The refe rence range was not u sed to interpret this result as normal/abnor mal. RBC (test code = 789-8) 4.49 See_Comment [Au tomated message] The system Junko Tada generated this result transmitted ref erence range: 4.20 - 5 .80 M/L. The refe rence range was not u sed to interpret this result as normal/abnor mal. MCHC (test code = 35.0 See_Comment [Automate d message] 786-4) The system Junko Tada generated this result transmitted ref erence range: 32.0 - 3 6.0 GM/DL. The refe rence range was not u sed to interpret this result as normal/abnor mal. Hematocrit (test code = 40.9 % 36-50 4544-3) MCV (test code = 787-2) 91.1 fL 82-99 MCH (test code = 785-6) 31.8 pg 27-33 RDW (test code = 788-0) 12.1 % 12-15 Platelets (test code = 266 See_Comment [Aut omated message] 087-3) The system Junko Tada generated this result transmitted ref erence range: 150 - 43 0 K/CU MM. The referen ce range was not used to interpret this result as normal/abnor mal. MPV (test code = 10.2 fL 6-11.5 40231-9) nRBC (test code = 413) 0 See_Comment [Aut omated message] The system Junko Tada generated this result transmitted ref erence range: 0 - 0 /1 00 WBC. The reference r mary alice was not used to int erpret this result as normal/abnormal . % Neutros (test code = 73 % 429) % Lymphs (test code = 21 % 430) % Monos (test code = 6 % 431) % Eos (test code = 432) 0 % % Baso (test code = 0 % 437) # Neutros (test code = 5.45 See_Comment [Aut omated message] 670) The system Junko Tada generated this result transmitted ref erence range: 1.80 - 8 .00 K/L. The refe rence range was not u sed to interpret this result as normal/abnor mal. # Lymphs (test code = 1.58 See_Comment [Auto mated message] 414) The system Junko Tada generated this result transmitted ref erence range: 1.48 - 4 .50 K/L. The refe rence range was not u sed to interpret this result as normal/abnor mal. # Monos (test code = 0.43 See_Comment [Autom ated message] 415) The system Junko Tada generated this result transmitted ref erence range: 0.00 - 1 .30 K/L. The refe rence range was not u sed to interpret this result as normal/abnor mal. # Eos (test code = 416) 0.00 See_Comment [Au tomated message] The system Junko Tada generated this result transmitted ref erence range: 0.00 - 0 .50 K/L. The refe rence range was not u sed to interpret this result as normal/abnor mal. # Baso (test code = 0.00 See_Comment [Automa delaney message] 417) The system Junko Tada generated this result transmitted ref erence range: 0.00 - 0 .20 K/L. The refe rence range was not u sed to interpret this result as normal/abnor mal. Immature 0 % 0-0 Granulocytes-Relative (test code = 2801) [facility] W/PLT COUNT & AUTO [id number] 05:37:00 Test Item Value Reference Range Interpretation Comments WHITE BLOOD CELL COUNT (BEAKER) 7.5 K/ L 4.0-10.0 (test code = 775) RED BLOOD CELL COUNT (BEAKER) 4.49 M/ L 4.20-5.80 (test code = 761) HEMOGLOBIN (BEAKER) (test code = 14.3 GM/DL 13.0-16.8 410) HEMATOCRIT (BEAKER) (test code = 40.9 % 36.0-50.0 411) MEAN CORPUSCULAR VOLUME (BEAKER) 91.1 fL 82.0-99.0 (test code = 753) MEAN CORPUSCULAR HEMOGLOBIN 31.8 pg 27.0-33.0 (BEAKER) (test code = 751) MEAN CORPUSCULAR HEMOGLOBIN CONC 35.0 GM/DL 32.0-36.0 (BEAKER) (test code = 752) RED CELL DISTRIBUTION WIDTH 12.1 % 12.0-15.0 (BEAKER) (test code = 412) PLATELET COUNT (BEAKER) (test 266 K/CU MM 150-430 code = 756) MEAN PLATELET VOLUME (BEAKER) 10.2 fL 6.0-11.5 (test code = 754) NUCLEATED RED BLOOD CELLS 0 /100 WBC 0-0 (BEAKER) (test code = 413) NEUTROPHILS RELATIVE PERCENT 73 % (BEAKER) (test code = 429) LYMPHOCYTES RELATIVE PERCENT 21 % (BEAKER) (test code = 430) MONOCYTES RELATIVE PERCENT 6 % (BEAKER) (test code = 431) EOSINOPHILS RELATIVE PERCENT 0 % (BEAKER) (test code = 432) BASOPHILS RELATIVE PERCENT 0 % (BEAKER) (test code = 437) NEUTROPHILS ABSOLUTE COUNT 5.45 K/ L 1.80-8.00 (BEAKER) (test code = 670) LYMPHOCYTES ABSOLUTE COUNT 1.58 K/ L 1.48-4.50 (BEAKER) (test code = 414) MONOCYTES ABSOLUTE COUNT (BEAKER) 0.43 K/ L 0.00-1.30 (test code = 415) EOSINOPHILS ABSOLUTE COUNT 0.00 K/ L 0.00-0.50 (BEAKER) (test code = 416) BASOPHILS ABSOLUTE COUNT (BEAKER) 0.00 K/ L 0.00-0.20 (test code = 417) IMMATURE GRANULOCYTES-RELATIVE 0 % 0-0 PERCENT (BEAKER) (test code = 2801) C-Reactive [id number] 05:31:00 Test Item Value Reference Range Interpretation Comments CRP (test code = 676) 3.57 mg/dL 0-1 H STARR (test code = STARR) Catalyst Concentration Operator ID - Kemi T Lab Interpretation (test Abnormal code = 93373-8) [facility] [id number] 05:31:00 Test Item Value Reference Range Interpretation Comments C-REACTIVE PROTEIN (BEAKER) (test 3.57 mg/dL 0.00-1.00 H code = 676) Catalyst Concentration Operator KOLBY Mcmullen asic Metabolic [id number] 05:29:00 Test Item Value Reference Range Interpretation Comments Sodium (test code = 137 meq/L 992-103 8970-2) Potassium (test code = 3.8 meq/L 3.6-5.5 2823-3) Chloride (test code = 101 meq/L 98-106 2075-0) CO2 (test code = 25 meq/L - 2028-9) BUN (test code = 25 mg/dL - 3094-0) Creatinine (test code 0.74 mg/dL 0.5-1.2 = 2160-0) Glucose (test code = 273 mg/dL 70-110 H 2345-7) Calcium (test code = 8.2 mg/dL 8.5-10.5 L 69399-9) EGFR (test code = 104 mL/min/1.73 [place] [address]-8) NOT ACCURATE CREATININE CLEARANCE IN PREDICTING GLOMERULAR FILTRATION RATE . ESTIMATED GFR I S NOT APPLICABLE FOR DIALYSIS PATIENTS. STARR (test code = STARR) Catalyst Concentration Operator KOLBY Cordoba Lab Interpretation Abnormal (test code = 90153-7) [facility] METABOLIC [id number] 05:29:00 Test Item Value Reference Range Interpretation Comments SODIUM (BEAKER) 137 meq/L 135-148 (test code = 381) POTASSIUM (BEAKER) 3.8 meq/L 3.6-5.5 (test code = 379) CHLORIDE (BEAKER) 101 meq/L 98-106 (test code = 382) CO2 (BEAKER) (test 25 meq/L code = 355) BLOOD UREA NITROGEN 25 mg/dL - (BEAKER) (test code = 354) CREATININE (BEAKER) 0.74 mg/dL 0.50-1.20 (test code = 358) GLUCOSE RANDOM 273 mg/dL 70-110 H (BEAKER) (test code = 652) CALCIUM (BEAKER) 8.2 mg/dL 8.5-10.5 L (test code = 697) EGFR (BEAKER) (test 104 mL/min/1.73 ESTIM ATED GFR IS code = 1092) sq m NOT ACCURATE CREATININE CLEARANCE IN PREDICTING GLOMERULAR FILTRATION RATE . ESTIMATED GFR I S NOT APPLICABLE FOR DIALYSIS PATIEN TS. Catalyst Concentration Operator ID - Kemi [id number] 05:19:00 Test Item Value Reference Range Interpretation Comments D-Dimer, Quant (test 0.51 See_Comment H Final I nformation code = 43443-6) (Auto Output ) [Automated message] The system which generated this result transmitted reference range : <0.50 MG/L FEU. The reference range was not used to interpr et this result as normal/abnormal . STARR (test code = REGARDING D-DIMER STARR) RESULTS: The 98% NPV (Negative Predictive Value) for DVT/PE exclusion is 0.50 mg/L FEU as suggested by the binding stitcher and as approved by the FDA. Lab Interpretation Abnormal (test code = 03724-1) [facility] Center[facility]-[id number] 05:19:00 Test Item Value Reference Range Interpretation Comments D-DIMER QUANTITATIVE 0.51 MG/L FEU <0.50 H Final Information (BEAKER) (test code = (Auto Output) 671) REGARDING D-DIMER RESULTS: The 98% NPV (Negative Predictive Value) for DVT/PE exclusion is 0.50 mg/LFEU as suggested by the binding stitcher and as approved by the FDA.[id number] 17:13:00 Test Item Value Reference Range Interpretation Comments PROCALCITONIN (BEAKER) (test code = < ng/mL <0.05 3036) SEPSIS RISK (ng/mL)Low: 0.05-0.50Intermediate: 0.51-2.00High: >=2.01POCT-GLUCOSE [id number] 16:51:00 Test Item Value Reference Range Interpretation Comments POC-GLUCOSE METER 223 mg/dL 70-110 H : TESTED A T [facility] ([employer]) (test code WILFREDOWOO Irvin [address], = 1538) [place] [address]: Catalyst Concentration Operator/Techni junito ID = [id number] for Stew art, Carmen SARS-CoV2/RT-PCR ([facility])2021-01-15 12:54:00 Test Item Value Reference Range Interpretation Comments SARS-COV2/RT-PCR Positive Negative AA The SARS-Co V-2 (test code = target nucleic 13540-8) acids are detected in this specimen. STARR (test code = The presence of STARR) SARS-CoV-2/FLU/RSV viral nucleic acids cannot rule out co-infections or disease caused by other viral or bacterial pathogens. As with any molecular test, mutations within the target regions of the Xpert Xpress SARS-CoV-2/Flu/RSV test could affect primer and/or probe binding resulting in failure to detect the presence of virus or the virus being detected less predictably. False negative results may occur if the virus is present at levels below the analytical limit of detection in this specimen. This Xpert Xpress SARS-CoV-2/Flu/RSV test is a rapid, real-time RT-PCR test intended for the qualitative detection of nucleic acid from Xpert Xpress SARS-CoV-2/Flu/RSV in a nasopharyngeal swab specimen collected from individuals suspected of Xpert Xpress SARS-CoV-2/Flu/RSV by their healthcare provider. Results from [facility] Xpert Xpress SARS-CoV-2/Flu/RSV test should be correlated with the clinical history, epidemiological data, and other data available to the clinician evaluating the patient. Viral nucleic acid may persist in vivo, independent of virus viability. Detection of analyte target(s) does not imply that the corresponding virus(es) are infectious or are the causative agents for clinical symptoms. This test has not been Food and Drug Administration (FDA) cleared or approved and has been authorized by FDA under an Emergency Use Authorization (EUA). This EUA will be effective until the declaration that circumstances exist justifying the authorization of the emergency use of in vitro diagnostic tests for detection and/or diagnosis of COVID-19 is terminated under Section 564(b)(2) of the Act or the EUA is revoked under Section 564(g) of the Act. Fact Sheet for Healthcare Providers:https://www .Singlyid.com/Document s/Xpert%20Xpress%20SA RS%20CoV-2/Fact%20She ets/302-3902%20SARS-C OV-2%20HEALTHCARE%20P ROVIDERS%20FACT%20SHE ET.pdf Fact Sheet for Healthcare Patients:https://www. i'mma.Klarna/Documents /Xpert%20Xpress%20SAR S%20Cov-2/Fact%20Shee ts/302-4009%20SARS-CO V-2%20PATIENT%20FACT% 20SHEET.pdf Lab Interpretation Abnormal (test code = 93870-4) [facility])2021-01-15 12:54:00 Test Item Value Reference Range Interpretation Comments SARS-COV2/RT-PCR Positive Negative AA The SARS-Co V-2 target (test code = 7035519) nuclei c acids are detected in thi s specimen. The presence of SARS-CoV-2/FLU/RSV viral nucleic acids cannot rule out co- infections or disease caused by other viral or bacterial pathogens. As with any molecular test, mutations within the target regions of the Xpert Xpress SARS-CoV-2/Flu/RSV test could affect primer and/or probe binding resulting in failure to detect the presence of virus or the virus being detected less predictably. False negative results may occur if the virus is present at levels below the analytical limit of detection in this specimen.This Xpert Xpress SARS-CoV-2/Flu/RSV test is a rapid, real-time RT-PCR test intended for the qualitative detection of nucleic acid from Xpert Xpress SARS-CoV-2/Flu/RSV in a nasopharyngeal swab specimen collected from individuals suspected of Xpert Xpress SARS-CoV-2/Flu/RSV by their healthcare provider. Results from [facility] Xpert Xpress SARS-CoV-2/Flu/RSV test should be correlated with the clinical history, epidemiological data, and other data available to the clinician evaluating the patient. Viral nucleic acid may persist in vivo, independent of virus viability. Detection of analyte target(s) does not imply that the corresponding virus(es) are infectious or are the causative agents for clinical symptoms.This test has not been Food and Drug Administration (FDA) cleared or approved and has been authorized by FDA under an Emergency Use Authorization (EUA). This EUA will be effective until the declaration that circumstances exist justifying the authorization of the emergency use of in vitro diagnostic tests for detection and/or diagnosis of COVID-19 is terminated under Section 564(b)(2) of the Act or the EUA is revoked under Section 564(g) of the Act.Fact Sheet for Healthcare Providers :https://www.Say2me/Documents/Xpert%20Xpress%20SARS%20CoV-2/Fact%20Sheets/3 02-3902%84UIKT-WOX-2%20HEALTHCARE%20PROVIDERS%20FACT%20SHEET.pdfFact Sheet for Healthcare Patients:https://www.Say2me /Documents/Xpert%20Xpress%20SARS%20Cov-2/Fact%20Sheets/[id number]-BNS-0%20P ATIENT%20FACT%20SHEET.pdfManual [id number] 12:19:00 Test Item Value Reference Range Interpretation Comments % Neutros (manual) (test 62 % code = 1359) % Lymphs (manual) (test 20 % code = 1360) % Monos (manual) (test 6 % code = 1361) % Eos (manual) (test 2 % code = 1362) % Bands (manual) (test 10 % 0-10 code = 1348) # Neutros (manual) (test 3.29 See_Comment [A utomated message] code = 1365) The system Junko Tada generated this result transmitted ref erence range: 1.80 - 8 .00 K/L. The refe rence range was not u sed to interpret this result as normal/abnor mal. # Lymphs (manual) (test 1.06 See_Comment L [Au tomated message] code = 1366) The system Junko Tada generated this result transmitted ref erence range: 1.48 - 4 .50 K/L. The refe rence range was not u sed to interpret this result as normal/abnor mal. # Monos (manual) (test 0.32 See_Comment [Aut omated message] code = 1367) The system Junko Tada generated this result transmitted ref erence range: 0.00 - 1 .30 K/L. The refe rence range was not u sed to interpret this result as normal/abnor mal. # Eos (manual) (test 0.11 See_Comment [Autom ated message] code = 1368) The system Junko Tada generated this result transmitted ref erence range: 0.00 - 0 .50 K/L. The refe rence range was not u sed to interpret this result as normal/abnor mal. # Bands (manual) (test 0.5 See_Comment [Aut omated message] code = 1349) The system Junko Tada generated this result transmitted ref erence range: 0.0 - 0. 8 K/L. The refe rence range was not u sed to interpret this result as normal/abnor mal. Total Counted (test code 100 = 1351) Bands plus Segmented 3.82 Neutrophils (test code = 1352) WBC Morphology (test Normal code = 487) Platelet Morphology Normal (test code = 486) RBC Morphology (test Normal code = 762) Lab Interpretation (test Abnormal code = 40596-0) [facility] W/PLT COUNT & AUTO [id number] 12:19:00 Test Item Value Reference Range Interpretation Comments WHITE BLOOD CELL COUNT (BEAKER) 5.3 K/ L 4.0-10.0 (test code = 775) RED BLOOD CELL COUNT (BEAKER) 4.59 M/ L 4.20-5.80 (test code = 761) HEMOGLOBIN (BEAKER) (test code = 14.8 GM/DL 13.0-16.8 410) HEMATOCRIT (BEAKER) (test code = 41.6 % 36.0-50.0 411) MEAN CORPUSCULAR VOLUME (BEAKER) 90.6 fL 82.0-99.0 (test code = 753) MEAN CORPUSCULAR HEMOGLOBIN 32.2 pg 27.0-33.0 (BEAKER) (test code = 751) MEAN CORPUSCULAR HEMOGLOBIN CONC 35.6 GM/DL 32.0-36.0 (BEAKER) (test code = 752) RED CELL DISTRIBUTION WIDTH 12.2 % 12.0-15.0 (BEAKER) (test code = 412) PLATELET COUNT (BEAKER) (test 228 K/CU MM 150-430 code = 756) MEAN PLATELET VOLUME (BEAKER) 9.9 fL 6.0-11.5 (test code = 754) NUCLEATED RED BLOOD CELLS 0 /100 WBC 0-0 (BEAKER) (test code = 413) (MANUAL DIFFERENTIAL)[id number] 12:19:00 Test Item Value Reference Range Interpretation Comments NEUTROPHILS - REL (DIFF) (BEAKER) 62 % (test code = 1359) LYMPHOCYTES - REL (DIFF) (BEAKER) 20 % (test code = 1360) MONOCYTES - REL (DIFF) (BEAKER) 6 % (test code = 1361) EOSINOPHILS - REL (DIFF) (BEAKER) 2 % (test code = 1362) BANDS - REL (DIFF) (BEAKER) (test 10 % 0-10 code = 1348) NEUTROPHILS - ABS (DIFF) (BEAKER) 3.29 K/ L 1.80-8.00 (test code = 1365) LYMPHOCYTES - ABS (DIFF) (BEAKER) 1.06 K/ L 1.48-4.50 L (test code = 1366) MONOCYTES - ABS (DIFF) (BEAKER) 0.32 K/ L 0.00-1.30 (test code = 1367) EOSINOPHILS - ABS (DIFF) (BEAKER) 0.11 K/ L 0.00-0.50 (test code = 1368) BANDS-ABS (DIFF) (BEAKER) (test 0.5 K/ L 0.0-0.8 code = 1349) TOTAL COUNTED (BEAKER) (test code = 100 1351) BANDS + SEGMENTED NEUTROPHILS 3.82 (BEAKER) (test code = 1352) WBC MORPHOLOGY (BEAKER) (test code Normal = 487) PLT MORPHOLOGY (BEAKER) (test code Normal = 486) RBC MORPHOLOGY (BEAKER) (test code Normal = 762) Comprehensive metabolic [id number] 12:14:00 Test Item Value Reference Range Interpretation Comments Protein, Total (test 7.0 See_Comment [Autom ated code = 2885-2) message] The system which generated this result transmit delaney reference range : 6.0 - 8.5 gm/dL . The reference range was not u sed to interpret th is result as normal/abnormal . Albumin (test code = 3.7 g/dL 3.5-5 11747-4) Alkaline Phosphatase 62 U/L 30-115 (test code = 6768-6) Total Bilirubin (test 1.0 mg/dL 0.1-1.2 code = 1975-2) Sodium (test code = 134 meq/L 135-148 L 2951-2) Potassium (test code 3.9 meq/L 3.6-5.5 = 2823-3) Chloride (test code = 98 meq/L 98-106 2074-0) CO2 (test code = 22 meq/L -2027-9) BUN (test code = 25 mg/dL - 3094-0) Creatinine (test code 0.78 mg/dL 0.5-1.2 = 2160-0) Glucose (test code = 299 mg/dL 70-110 H 2345-7) Calcium (test code = 8.3 mg/dL 8.5-10.5 L 22058-7) AST (test code = 60 U/L 5-40 H 1920-8) ALT (test code = 56 U/L 5-50 H 1742-6) EGFR (test code = 98 mL/min/1.73 [place] [address]-0) NOT ACCURATE CREATININE CLEARANCE IN PREDICTING GLOMERULAR FILTRATION RATE . ESTIMATED GFR I S NOT APPLICABLE FOR DIALYSIS PATIEN TS. STARR (test code = STARR) Catalyst Concentration Operator ID - [id number] Lab Interpretation Abnormal (test code = 89695-8) [facility] [id number] 12:14:00 Test Item Value Reference Range Interpretation Comments TOTAL PROTEIN 7.0 gm/dL 6.0-8.5 (BEAKER) (test code = 770) ALBUMIN (BEAKER) 3.7 g/dL 3.5-5.0 (test code = 1145) ALKALINE PHOSPHATASE 62 U/L 30-115 (BEAKER) (test code = 346) BILIRUBIN TOTAL 1.0 mg/dL 0.1-1.2 (BEAKER) (test code = 377) SODIUM (BEAKER) (test 134 meq/L 135-148 L code = 381) POTASSIUM (BEAKER) 3.9 meq/L 3.6-5.5 (test code = 379) CHLORIDE (BEAKER) 98 meq/L 98-106 (test code = 382) CO2 (BEAKER) (test 22 meq/L code = 355) BLOOD UREA NITROGEN 25 mg/dL 04-24 (BEAKER) (test code = 354) CREATININE (BEAKER) 0.78 mg/dL 0.50-1.20 (test code = 358) GLUCOSE RANDOM 299 mg/dL 70-110 H (BEAKER) (test code = 652) CALCIUM (BEAKER) 8.3 mg/dL 8.5-10.5 L (test code = 697) AST (SGOT) (BEAKER) 60 U/L 5-40 H (test code = 353) ALT (SGPT) (BEAKER) 56 U/L 5-50 H (test code = 347) EGFR (BEAKER) (test 98 mL/min/1.73 ESTIMA DELANEY GFR IS code = 1092) sq m NOT ACCURATE CREATININE CLEARANCE IN PREDICTING GLOMERULAR FILTRATION RATE . ESTIMATED GFR I S NOT APPLICABLE FOR DIALYSIS PATIEN TS. Catalyst Concentration Operator ID - NLYLEC-REACTIVE [id number] 12:13:00 Test Item Value Reference Range Interpretation Comments C-REACTIVE PROTEIN (BEAKER) (test 7.18 mg/dL 0.00-1.00 H code = 676) Catalyst Concentration Operator ID - [id number] 12:06:00 Test Item Value Reference Range Interpretation Comments D-DIMER QUANTITATIVE 0.77 MG/L FEU <0.50 H Final Information (BEAKER) (test code = (Auto Output) 671) REGARDING D-DIMER RESULTS: The 98% NPV (Negative Predictive Value) for DVT/PE exclusion is 0.50 mg/LFEU as suggested by the binding stitcher and as approved by the FDA.RAD, CHEST, 1 VIEW, NON [id number] 10:20:00Reason for exam:- >PneumoniaShould this be performed at the bedside?->Yes [facility] 1950 Sex: MFINAL REPORT INDICATION: Pneumonia COMPARISON: None TECHNIQUE: Single frontal view of the chest. FINDINGS: Lungs and pleura: Clear lungs. No effusion.Heart and mediastinum: Normal heart size. Unremarkable mediastinal contours.Osseous structures: No acute abnormality.Other: None. IMPRESSION: No acute intrathoracic abnormality. Signed: Bhavik Garcia MDReport Verified Date/Time: 01/15/2021 10:20:10 Reading Location: [facility] Radiology Reading Room POCT-GLUCOSE [id number] 05:26:00 Test Item Value Reference Range Interpretation Comments POC-GLUCOSE METER 260 mg/dL 70-110 H : TESTED A T [facility] (BEAKER) (test code WILFREDOWOO Irvin DOSS DR, = 1538) [facility] 7707 0: Catalyst Concentration Operator/Techni junito ID = [id number] for Balt ie, Kris [id number] 00:00:00Ordered by an unspecified provider.[facility]
[2021-01-22] MEDS ORDERED: NA CHLORIDE 0.9% 1,000 ML ONE ×2 (07:52→21:23)
[2021-01-22 07:53] LABS: Urine Blood Negative (Negative); Urine Glucose Negative (Negative); Urine Protein 2+ (Negative)
[2021-01-22 07:55] LABS: Absolute Lymphocytes (CBC) 0.9 K/uL (0.7-4.9); Hematocrit 42.4 % (39.6-49.0); Lymphocytes % 5.4 % (15.3-44.8); MPV 7.6 fL (7.6-11.3); RBC Red Blood Cell Count 4.68 M/uL (4.33-5.43)
[2021-01-22 08:15] LABS: BUN Blood Urea Nitrogen 19 mg/dL (7-18); Bicarbonate 29 mmol/L (21-32); Glucose Level 163 mg/dL (74-106); NT PRO-BNP 184 pg/mL (<125); Potassium 3.2 mmol/L (3.5-5.1); Sodium Level 136 mmol/L (136-145)
--- NOTE | 2021-01-22 09:18 | RAD REPORT ---
EXAM DESCRIPTION: CT - Chest For Pe Angio - 01/22/2021 8:53 am CLINICAL HISTORY: Chest pain. COVID +;Chest pain COMPARISON: Chest For Pe Angio dated 01/14/2021 TECHNIQUE: CT angiogram of the pulmonary arteries was performed with MIP. All CT scans are performed using dose optimization technique as appropriate and may include automated exposure control or mA/KV adjustment according to patient size. FINDINGS: Filling defect is present in the right upper lobe pulmonary arterial tree compatible with pulmonary embolism. No evidence of significant RV strain pattern. No acute aortic finding demonstrated. Moderate peripherally oriented ground-glass opacities are present greatest in the lung bases. No significant pericardial or pleural fluid. No concerning bony finding. IMPRESSION: Right upper lobe pulmonary embolism is present. Moderate peripherally oriented ground-glass lung opacities compatible with COVID-19 infection.
--- NOTE | 2021-01-22 09:41 | RAD REPORT ---
EXAM DESCRIPTION: RAD - Chest Single View - 01/22/2021 7:53 am CLINICAL HISTORY: COVID + Chest pain. COMPARISON: Chest Single View dated 01/14/2021 FINDINGS: Portable technique limits examination quality. Mild emphysematous pattern is seen throughout the lungs. Subtle interstitial opacities bilaterally ma y represent a mild bronchitis/ viral infection. The heart is normal in size. No displaced fractures.
[2021-01-22 09:44] LABS: Urine Bacteria <20 /HPF (NONE SEEN); Urine RBC <5 /HPF (NONE SEEN)
[2021-01-22] MEDS ORDERED: ENOXAPARIN 80 MG/0.8 ML SQ ONE (10:17)
[2021-01-22 12:07] LABS: Blood Morphology Comment NOT SEEN (NOT SEEN); Platelet Estimate ADEQ
[2021-01-22] MEDS ORDERED: ACETAMINOPHEN 500 MG TAB PO PRN (15:10)
[2021-01-22] MEDS ORDERED: ONDANSETRON 4 MG/2 ML VIAL IV PRN (15:10)
[2021-01-22] MEDS ORDERED: NA CHLORIDE 0.9% 1,000 ML IV SCH (16:00)
--- NOTE | 2021-01-22 17:01 | P.HP ---
Certification for Inpatient Patient admitted to: Inpatient With expected LOS: >2 Midnights Patient will require the following post-hospital care: None Practitioner: I am a practitioner with admitting privileges, knowledge of patient current condition, hospital course, and medical plan of care. Services: Services provided to patient in accordance with Admission requirements found in Title 42 Section 412.3 of the Code of Federal Regulations Patient History Date of Service: 01/22/21 Reason for admission: Patient with pulmonary embolism History of Present Illness: Patient is a 70-year-old gentleman who has been diagnosed with COVID-19 pneumonia. Patient has a history of type 2 diabetes. Patient is also put a little confused lately. Patient started having some shortness of breath and chest pain. Decision was made to admit the patient to the hospital for further evaluation. Patient had a CT scan which revealed pulmonary embolism. Patient was admitted to the hospital for further evaluation. Allergies No Known Allergies Allergy (Verified 01/22/21 12:43) - Past Medical/Surgical History -: Type 2 diabetes -: Tonsillectomy - Family History Father Family History: Reviewed- Non-Contributory - Social History Smoking Status: Former smoker Alcohol use: No CD- Drugs: No Review of Systems 10-point ROS is otherwise unremarkable Physical Examination - Vital Signs Temperature: 98 F Blood Pressure: 140/70 Pulse: 89 Respirations: 20 Pulse Ox (%): 95 - Physical Exam General: Alert, In no apparent distress, Oriented x2, Other (Patient has some confusion but this may be related to dementia undiagnosed) HEENT: Atraumatic, PERRLA, Mucous membr. moist/pink, EOMI, Sclerae nonicteric Neck: Supple, 2+ carotid pulse no bruit, No LAD, Without JVD or thyroid abnormality Respiratory: Clear to auscultation bilaterally, Normal air movement Cardiovascular: Regular rate/rhythm, Normal S1 S2 Gastrointestinal: Normal bowel sounds, Soft and benign, Non-distended, No tenderness Musculoskeletal: No clubbing, No swelling, No tenderness Integumentary: No rashes Neurological: Normal gait, Normal speech, Normal strength at 5/5 x4 extr, Normal tone, Sensation intact, Cranial nerves 3-12 intact, Normal affect Lymphatics: No axilla or inguinal lymphadenopathy - Studies Laboratory Data (last 24 hrs) 01/22/21 07:42: Sodium 136, Potassium 3.2 L, BUN 19 H, Creatinine 0.76, Glucose 163 H 01/22/21 07:42: WBC 16.70 H D, Hgb 14.8, Hct 42.4, Plt Count 226 Assessment & Plan - Problems (Diagnosis) (1) Pulmonary embolism Current Visit: Yes Status: Acute (2) Pneumonia due to COVID-19 virus Current Visit: Yes Status: Acute (3) Hypoxemia Current Visit: Yes Status: Acute (4) DM2 (diabetes mellitus, type 2) Current Visit: Yes Status: Acute 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 Continue with IV steroids 2. Monitor inflammatory markers 3. Repeat chest x-ray if symptoms are progressively worsening 4. O2 per protocol 5. Pulmonary consultation pending 6. Continue with albuterol inhaler therapy; also supportive care 7. ECHO 8. Full dose anticoagulation; monitor INR 9. Strict BS control 9. GI/DVT prophylaxis Discharge Plan: Home Plan to discharge in: Greater than 2 days - Advance Directives Does patient have a Living Will: No Does patient have a Durable POA for Healthcare: No - Code Status/Comfort Care Code Status Assessed: Yes Code Status: Full Code Critical Care: No Time Spent Managing PTS Care (In Minutes): 45
[2021-01-22] MEDS: ALBUTEROL 2.5 MG/3 ML NEB SOL NEB SCH (20:00)
[2021-01-22] MEDS: IPRATROPIUM BROM 0.5MG/2.5ML NEB SCH (20:00)
[2021-01-22] MEDS: METHYLPREDNISOLONE 40 MG INJ IV SCH (21:04)
[2021-01-22] MEDS: FAMOTIDINE 20 MG/2 ML VIAL IV SCH (21:06)
[2021-01-22] MEDS: MORPHINE 2 MG/ML SYR IV PRN (21:12)
[2021-01-22] MEDS: APIXABAN 5 MG TABLET PO SCH (21:12)
[2021-01-22] MEDS ORDERED: MORPHINE 2 MG/ML SYR ONE (21:22)
[2021-01-22] MEDS ORDERED: ALBUTEROL 2.5 MG/3 ML NEB SOL ONE (21:22)
[2021-01-22] MEDS ORDERED: APIXABAN 5 MG TABLET ONE (21:22)
[2021-01-22] MEDS ORDERED: FAMOTIDINE 20 MG/2 ML VIAL IV ONE (21:23)
[2021-01-22] MEDS ORDERED: IPRATROPIUM BROM 0.5MG/2.5ML ONE (21:23)
[2021-01-22] MEDS ORDERED: METHYLPREDNISOLONE 40 MG INJ ONE (21:23)
[2021-01-23 01:11] LABS: Barbiturates NEGATIVE (NEGATIVE); Benzodiazepines NEGATIVE (NEGATIVE); Cocaine NEGATIVE (NEGATIVE); METHAMPHETAM NEGATIVE (NEGATIVE); Methadone NEGATIVE (NEGATIVE); Opiates NEGATIVE (NEGATIVE); Phencyclidine NEGATIVE (NEGATIVE); THC Cannibis NEGATIVE (NEGATIVE)
[2021-01-23] MEDS: ALBUTEROL 2.5 MG/3 ML NEB SOL NEB SCH ×4 (02:00→20:00)
[2021-01-23] MEDS: IPRATROPIUM BROM 0.5MG/2.5ML NEB SCH ×4 (02:00→20:00)
[2021-01-23] MEDS ORDERED: MORPHINE 2 MG/ML SYR ONE ×2 (03:24→22:25)
[2021-01-23] MEDS: MORPHINE 2 MG/ML SYR IV PRN ×2 (03:30→22:08)
[2021-01-23 04:11] LABS: Absolute Lymphocytes (CBC) 0.6 K/uL (0.7-4.9); Basophils % 0.3 % (0-1.3); Hematocrit 36.6 % (39.6-49.0); Lymphocytes % 1.9 % (15.3-44.8); MPV 7.7 fL (7.6-11.3)
[2021-01-23 04:15] LABS: Protime INR 3.24
[2021-01-23 04:38] LABS: ALT/SGPT 34 U/L (12-78); AST/SGOT 24 U/L (15-37); Albumin 2.1 g/dL (3.4-5.0); Alkaline Phosphatase 67 U/L (45-117); BUN Blood Urea Nitrogen 14 mg/dL (7-18); Bicarbonate 26 mmol/L (21-32); Bilirubin Total 0.7 mg/dL (0.2-1.0); Ferritin 1190.6 ng/mL (26-388); Glucose Level 247 mg/dL (74-106); Potassium 3.3 mmol/L (3.5-5.1); Protein, Total 6.3 g/dL (6.4-8.2); Sodium Level 137 mmol/L (136-145)
[2021-01-23 04:59] LABS: Blood Morphology Comment NOT SEEN (NOT SEEN); Platelet Estimate ADEQ
--- NOTE | 2021-01-23 07:02 | RAD REPORT ---
EXAM DESCRIPTION: RAD - Chest Single View - 01/23/2021 5:28 am CLINICAL HISTORY: COVID COMPARISON: January [address] chest TECHNIQUE: AP portable chest image was obtained 01/23/2021 5:28 am . FINDINGS: Lung volumes are reduced from the prior imaging. This accentuates the previously detailed peripheral airspace disease. There has been no improvement since January 22 and possible slight progress ion. Trachea is midline. No large mass or new area of consolidation. Heart and vasculature are normal . No measurable pleural effusion and no pneumothorax. No acute bony abnormality seen. No acute aortic findings suspected. IMPRESSION: Stable to slightly worsening COVID-19 pneumonia findings.
--- NOTE | 2021-01-23 08:18 | P.PN ---
Subjective Date of Service: 01/23/21 Subjective: No new changes, No C/O voiced, Improving Patient denies any complaints and feels like he is doing better. Continue with current plan of care and anticipate discharge over the next 24 hr Review of Systems 10-point ROS is otherwise unremarkable Physical Examination - Vital Signs Temperature: 98 F Blood Pressure: 140/70 Pulse: 89 Respirations: 20 Pulse Ox (%): 95 - Physical Exam General: Alert, In no apparent distress, Oriented x3 Respiratory: Diminished, Crackles/rales Cardiovascular: Regular rate/rhythm, Normal S1 S2, Systolic murmur Gastrointestinal: Normal bowel sounds, Soft and benign, Non-distended, No tenderness, No rebound, No guarding Musculoskeletal: No clubbing, No swelling, No tenderness Neurological: Sensation intact, Cranial nerves 3-12 intact - Studies Laboratory Data (last 24 hrs) 01/22/21 07:42: WBC 16.70 H D, Hgb 14.8, Hct 42.4, Plt Count 226 Medications List Reviewed: Yes Assessment & Plan - Problems (Diagnosis) (1) Pulmonary embolism Current Visit: Yes Status: Acute (2) Pneumonia due to COVID-19 virus Current Visit: Yes Status: Acute (3) Hypoxemia Current Visit: Yes Status: Acute (4) DM2 (diabetes mellitus, type 2) Current Visit: Yes Status: Acute 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 Continue with IV steroids 2. Monitor inflammatory markers 3. Repeat chest x-ray if symptoms are progressively worsening 4. O2 per protocol 5. Pulmonary consultation pending 6. Continue with albuterol inhaler therapy; also supportive care 7. ECHO 8. Full dose anticoagulation; monitor INR 9. Strict BS control 9. GI/DVT prophylaxis Discharge Plan: Home Plan to discharge in: Greater than 2 days - Advance Directives Does patient have a Living Will: No Does patient have a Durable POA for Healthcare: No - Code Status/Comfort Care Code Status: Full Code Critical Care: No Time Spent Managing PTS Care (In Minutes): 35
[2021-01-23] MEDS ORDERED: METHYLPREDNISOLONE 40 MG INJ ONE ×2 (08:30→22:02)
[2021-01-23] MEDS ORDERED: FAMOTIDINE 20 MG/2 ML VIAL IV ONE (08:30)
[2021-01-23] MEDS ORDERED: APIXABAN 5 MG TABLET ONE (08:30)
[2021-01-23] MEDS ORDERED: ALBUTEROL 2.5 MG/3 ML NEB SOL ONE ×2 (08:39→14:32)
[2021-01-23] MEDS ORDERED: IPRATROPIUM BROM 0.5MG/2.5ML ONE ×2 (08:39→14:32)
[2021-01-23] MEDS: APIXABAN 5 MG TABLET PO SCH ×2 (08:57→21:00)
[2021-01-23] MEDS: METHYLPREDNISOLONE 40 MG INJ IV SCH ×2 (08:58→22:01)
[2021-01-23] MEDS: FAMOTIDINE 20 MG/2 ML VIAL IV SCH ×2 (08:58→22:01)
[2021-01-23] MEDS: BARICITINIB 2 MG TABLET PO SCH (09:00)
[2021-01-23] MEDS: GLUCERNA SHAKE 237 ML CAN PO SCH ×2 (10:22→21:00)
--- NOTE | 2021-01-23 12:07 | RAD REPORT ---
EXAM DESCRIPTION: CT - Head Brain Wo Cont - 01/23/2021 4:17 am CLINICAL HISTORY: The patient is 70 years old and is Male; AMS TECHNIQUE: Axial computed tomography images of the head/brain without intravenous contrast. Sagitt al and coronal reformatted images were created and reviewed. This CT exam was performed using one o r more of the following dose reduction techniques: automated exposure control, adjustment of the mA and/or kV according to patient size, and/or use of iterative reconstruction technique. COMPARISON: No relevant prior studies available. FINDINGS: Brain: Mild cerebral atrophy. No hemorrhage. No significant white matter disease. Ventricles: Unremarkable. No ventriculomegaly. Bones/joints: Unremarkable. No acute fracture. Soft tissues: Unremarkable. Sinuses: Unremarkable as visualized. Mastoid air cells: Unremarkable as visualized. No mastoid effusion. IMPRESSION: No acute intracranial abnormality. Electronically signed by: Jose Tomas MD 01/23/2021 3:13 AM CDT Due to temporary technical issues with the PACS/Fluency reporting system, reports are being signed by the in house radiologists without review as a courtesy to insure prompt reporting. The interpreting radiologist is fully responsible for the content of the report.
[2021-01-23] MEDS ORDERED: GLUCAGON 1 MG/VIAL IM PRN ×2 (12:51→17:33)
[2021-01-23] MEDS ORDERED: D50W 25 GM/50 ML SYRINGE IV PRN ×2 (12:51→17:33)
[2021-01-23] MEDS: INSULIN -REGULAR HUMAN 50 UNIT/0.5 ML ML SQ SCH ×3 (12:52→22:01)
[2021-01-23] MEDS ORDERED: INSULIN -REGULAR HUMAN 50 UNIT/0.5 ML ML ONE ×3 (13:23→22:03)
--- NOTE | 2021-01-23 17:15 | EDPHYS ---
Physician Documentation [facility] Name: Chapo Burr Age: 70 yrs Sex: Male : 1950 Arrival Date: 01/22/2021 Time: 07:06 Bed 18 Private MD: ED Physician Yared Lainez HPI: 01/22 07:21 This 70 yrs old Male presents to ER via Unassigned with complaints of rn Generalized weakness generalized weakness. 07:21 Patient diagnosed with Covid last week, patient went home, increased weakness and rn decreased appetite. Patient denies abdominal pain, family reports nausea and vomiting.. Onset: The symptoms/episode began/occurred 1 week(s) ago. Severity of symptoms: At their worst the symptoms were moderate in the emergency department the symptoms are unchanged. The patient has not experienced similar symptoms in the past. The patient has been recently seen at the [facility] Emergency Department. Historical: - Allergies: 08:05 No Known Allergies; ap3 - PMHx: 08:05 Diabetes - NIDDM; diabetes mellitus ; insulin dependent; ap3 - Immunization history:: unknown at this time. - Family history:: not pertinent. - Social history:: Smoking status: unknown. - Hospitalizations: : No recent hospitalization is reported. ROS: 07:21 Constitutional: Negative for fever, chills Eyes: Negative for injury, pain, redness, rn and discharge, ENT: Negative for injury, pain, and discharge, Cardiovascular: Negative for chest pain, palpitations, and edema, Respiratory: Positive for shortness, positive cough, and pleuritic chest pain Abdomen/GI: Negative for abdominal pain, diarrhea, and constipation, Back: Negative for injury and pain, : Negative for injury, bleeding, discharge, and swelling, MS/Extremity: Negative for injury and deformity, Skin: Negative for injury, rash, and discoloration, Neuro: Negative for headache, numbness, tingling, and seizure. 07:21 All other systems are negative. Exam: 07:21 Constitutional: Thin male, somnolent, no acute distress Head/Face: Normocephalic, rn atraumatic. Eyes: Periorbital areas with no swelling, redness, or edema. ENT: Dry mucous membranes, no stridor Cardiovascular: Tachycardic, regular Respiratory: Mild tachypnea, diminished breath sounds bilateral bases Abdomen/GI: Soft, nontender, nondistended Skin: Warm, dry MS/ Extremity: Pulses equal, no cyanosis. Neuro: Awake and alert, GCS 15, oriented to person, place, not time. Cranial nerves II-XII grossly intact. Motor strength 4/5 in all extremities. Sensory grossly intact. Vital Signs: 07:54 BP 113 / 68; Pulse 86; Resp 20; Temp 98.8; Pulse Ox 97% on 2 lpm NC; ap3 08:13 BP 100 / 52; Pulse 96; Resp 19; Pulse Ox 94% on 2 lpm NC; ap3 09:20 BP 124 / 51; Pulse 78; Resp 23; Pulse Ox 96% on R/A; ap3 09:47 Weight 70.31 kg; ap3 09:49 BP 118 / 64; Pulse 75; Pulse Ox 94% on 2 lpm NC; ap3 11:34 BP 127 / 67; Pulse 74; Resp 18; Pulse Ox 100% on 2 lpm NC; ap3 12:21 BP 108 / 48; Pulse 77; Resp 18; Pulse Ox 99% on 2 lpm NC; ap3 13:32 BP 124 / 48; Pulse 79; Pulse Ox 97% on 2 lpm NC; ap3 MDM: 07:06 Patient medically screened. rn 09:34 Differential Diagnosis COVID, PE, pneumonia, dehydration.. Data reviewed: vital signs, rn nurses notes, lab test result(s), EKG, radiologic studies, CT scan, plain films, and as a result, I will admit patient. Counseling: I had a detailed discussion with the patient and/or guardian regarding: the historical points, exam findings, and any diagnostic results supporting the discharge/admit diagnosis, lab results, radiology results, the need for further work-up and treatment in the hospital. Response to treatment: the patient's symptoms have mildly improved after treatment, and as a result, I will admit patient. Admission orders: after a detailed discussion of the patient's condition and case, the admit orders are written by me. ED course: Patient with Covid pneumonia, as well as right upper lobe pulmonary embolism. Positive moderate dehydration, will admit to hospitalist service for further care. Lovenox ordered here for anticoagulation.. 01/22 07:15 Order name: CBC with Diff rn 01/22 07:15 Order name: Basic Metabolic Panel rn 01/22 07:15 Order name: Urine Culture rn 01/22 07:15 Order name: Urine Microscopic Only rn 01/22 07:15 Order name: Procalcitonin rn 01/22 07:15 Order name: Lactate; Complete Time: 09:14 rn 01/22 07:15 Order name: BNP rn 01/22 07:15 Order name: CRP rn 01/22 07:15 Order name: CBC with Automated Diff EDMS 01/22 07:15 Order name: Basic Metabolic Panel; Complete Time: 09:14 EDMS 01/22 07:15 Order name: Urine Culture EDMS 01/22 07:15 Order name: Urine Microscopic Only EDMS 01/22 07:15 Order name: Procalcitonin EDKY 01/22 07:16 Order name: NT PRO-BNP; Complete Time: 09:14 EDMS 01/22 07:16 Order name: C-Reactive Protein; Complete Time: 09:14 EDMS 01/22 07:52 Order name: Urine Dipstick-Ancillary; Complete Time: 08:11 EDMS 01/22 12:05 Order name: Manual Differential EDKY 01/22 15:15 Order name: C-Reactive Protein EDKY 01/22 15:15 Order name: C-Reactive Protein EDMS 01/22 15:15 Order name: Comprehensive Metabolic Panel EDKY 01/22 15:15 Order name: Comprehensive Metabolic Panel EDKY 01/22 15:15 Order name: CBC with Automated Diff EDMS 01/22 15:15 Order name: CBC with Automated Diff EDMS 01/22 15:15 Order name: D-Dimer EDMS 01/22 15:15 Order name: D-Dimer EDMS 01/22 15:15 Order name: Ferritin EDMS 01/22 15:15 Order name: Ferritin EDMS 01/22 15:15 Order name: Protime (+INR) EDMS 01/22 15:15 Order name: Protime (+INR) EDMS 01/22 15:15 Order name: PTT, Activated Partial Thromb EDMS 01/22 07:15 Order name: IV Start; Complete Time: 07:53 rn 01/22 07:15 Order name: Urine Dipstick-Ancillary (obtain specimen); Complete Time: 07:53 rn 01/22 07:15 Order name: XRAY Chest (1 view) rn 01/22 07:15 Order name: EKG - Nurse/Tech; Complete Time: 13:48 rn 01/22 07:18 Order name: CT Chest For PE Angio rn 01/22 15:15 Order name: CONS Physician Consult EDKY 01/22 15:15 Order name: Heart Healthy EDKY 01/22 15:15 Order name: PTT, Activated Partial Thromb EDKY 01/22 15:15 Order name: Chest Single View [facility] 01/22 15:15 Order name: Chest Single View [facility] 01/23 01:11 Order name: Urine Drug Screen [facility] 01/23 04:59 Order name: Manual Differential [facility] 01/23 12:07 Order name: CT [facility] 01/23 12:42 Order name: Glucose, Ancillary Testing [facility] 01/23 14:13 Order name: Glucose, Ancillary Testing [facility] 01/23 17:08 Order name: Glucose, Ancillary Testing [facility] 01/23 21:21 Order name: Glucose, Ancillary Testing [facility] 01/24 01:04 Order name: Glucose, Ancillary Testing [facility] 01/24 03:23 Order name: CBC without Diff [facility] 01/24 03:27 Order name: SARS-COV-2 RT PCR [facility] 01/24 03:40 Order name: Comprehensive Metabolic Panel [facility] 01/24 03:40 Order name: Phosphorus [facility] 01/24 03:40 Order name: T4 Free [facility] 01/24 03:40 Order name: Magnesium [facility] 01/24 03:40 Order name: Thyroid Stimulating Hormone [facility] 01/24 03:44 Order name: Hemoglobin A1c EDKY Administered Medications: 07:53 Drug: NS 0.9% 1000 ml Route: IV; Rate: 1000 ml; Site: right antecubital; ap3 09:49 Follow up: IV Status: Completed infusion; IV Intake: 1000ml ap3 09:58 Drug: Lovenox (enoxaparin) 1 mg/kg Route: Sub-Q; Site: right lower abdomen; ap3 10:43 Follow up: Response: No adverse reaction ap3 Disposition Summary: 01/22/21 09:36 Hospitalization Ordered Hospitalization Status: Inpatient Admission rn Provider: Jules Loving rn Condition: Stable rn Problem: new rn Symptoms: are unchanged rn Bed/Room Type: Standard rn Location: Intensive Care Unit(01/24/21 00:24) Room Assignment: 1-(01/24/21 00:24) cg Diagnosis - Pneumonia due to SARS-associated coronavirus rn - Pulmonary embolism without acute cor pulmonale rn - Dehydration rn Forms: - Medication Reconciliation Form rn - SBAR form rn Signatures: Dispatcher [employer] EDYared Verma MD MD rn Calderon, Audri RN RN aa5 Ellie Zimmerman RN RN cg Prokisch, Amanda RN RN ap3 Corrections: (The following items were deleted from the chart) 18:54 09:36 Telemetry/MedSurg (Inpatient) dixie nash5 18:54 09:36 dixie calles 01/24 00:24 01/22 18:54 [facility] ER HOLD aa5 01/24 00:24 01/22 18:54 ERHOLD- aa5 01/24 00:24 00:24 ER - 10 cg cg
--- NOTE | 2021-01-23 17:15 | ER ---
Nurse's Notes [facility] Name: Chapo Burr Age: 70 yrs Sex: Male : 1950 Arrival Date: 01/22/2021 Time: 07:06 Bed 18 Private MD: Diagnosis: Pneumonia due to SARS-associated coronavirus;Pulmonary embolism without acute cor pulmonale;Dehydration Presentation: 01/22 07:54 Chief complaint: EMS states: patients daughter in law called them out for patients ap3 change in mental status. Patient is reported to be A/O X's 2, baseline is A/O X's 4. It is reported patient tested positive for COVID one week ago, and was recently discharged from hospital. It is also reported patient hasn't eaten much in 5 days. Coronavirus screen: Client reports previous positive COVID test result. reported one week ago. Ebola Screen: Patient denies travel to an Ebola-affected area in the 21 days before illness onset. Initial Sepsis Screen: Does the patient meet any 2 criteria? No. Patient's initial sepsis screen is negative. Does the patient have a suspected source of infection? No. Patient's initial sepsis screen is negative. Risk Assessment: Do you want to hurt yourself or someone else? Patient reports no desire to harm self or others. Onset of symptoms was January 15, 2021. Care prior to arrival: 2 liters O2 via NC. 07:54 Method Of Arrival: EMS: [facility] ap3 07:54 Acuity: JANES 3 ap3 Historical: - Allergies: 08:05 No Known Allergies; ap3 - PMHx: 08:05 Diabetes - NIDDM; diabetes mellitus ; insulin dependent; ap3 - Immunization history:: unknown at this time. - Family history:: not pertinent. - Social history:: Smoking status: unknown. - Hospitalizations: : No recent hospitalization is reported. Screenin:03 Abuse screen: Denies threats or abuse. Nutritional screening: it is reported patient ap3 has no appetite for 5 days. Tuberculosis screening: No symptoms or risk factors identified. Fall Risk No fall in past 12 months (0 pts). Secondary diagnosis (15 points) impaired mobility, altered mental status. IV access (20 points). Ambulatory Aid- None/Bed Rest/Nurse Assist (0 pts). Gait- Weak (10 pts.). Mental Status- Overestimates/Forgets Limitations (15 pts.). Total Rene Fall Scale indicates High Risk Score (45 or more points). Fall prevention measures have been instituted. Side Rails Up X 2 Placed Close to Nursing Station Frequent Obs/Assessments Occuring As available patient and family educated on Fall Prevention Program and Strategies. Assessment: 08:01 General: Appears uncomfortable, slender, Behavior is calm, cooperative, Reports feeling ap3 ill for > 3 days. Pain: Denies pain. Neuro: Level of Consciousness is awake, obeys commands, Oriented to person, place, baseline is reported to be A/O X's 4. Cardiovascular: Denies chest pain, Capillary refill < 3 seconds. Respiratory: Airway is patent Respiratory effort is even, unlabored, Respiratory pattern is regular, symmetrical. GI: Parent/caregiver reports the patient having lack of appetite. : Urine is clear, clear and dark. EENT:. Musculoskeletal: Parent/caregiver report the patient having weakness in generalized weakness. 11:35 Reassessment: patient was seen sitting naked in the bedside chair. urine was noted to ap3 be on the floor of the room, and the sheets on stretcher were wet. Nurse cleaned patient, and got him into a clean gown. Nurse cleaned urine from floor, and placed fresh clean sheets on bed. Nurse assisted patient into bed, and educated patient on the call light. Nurse also provided patient with urinal. Patient is in bed, side rails up X's 2. Call light is within reach. Vital Signs: 07:54 BP 113 / 68; Pulse 86; Resp 20; Temp 98.8; Pulse Ox 97% on 2 lpm NC; ap3 08:13 BP 100 / 52; Pulse 96; Resp 19; Pulse Ox 94% on 2 lpm NC; ap3 09:20 BP 124 / 51; Pulse 78; Resp 23; Pulse Ox 96% on R/A; ap3 09:47 Weight 70.31 kg; ap3 09:49 BP 118 / 64; Pulse 75; Pulse Ox 94% on 2 lpm NC; ap3 11:34 BP 127 / 67; Pulse 74; Resp 18; Pulse Ox 100% on 2 lpm NC; ap3 12:21 BP 108 / 48; Pulse 77; Resp 18; Pulse Ox 99% on 2 lpm NC; ap3 13:32 BP 124 / 48; Pulse 79; Pulse Ox 97% on 2 lpm NC; ap3 ED Course: 07:06 Patient arrived in ED. em1 07:06 Yared Lainez MD is Attending Physician. rn 07:10 Daksha Ku RN is Primary Nurse. ap3 07:40 Inserted saline lock: 20 gauge in right forearm, using aseptic technique. Blood ap3 collected. 07:52 XRAY Chest (1 view) In Process Unspecified. EDMS 08:01 Triage completed. ap3 08:04 Arm band placed on left wrist. ap3 08:04 Patient has correct armband on for positive identification. Placed in gown. Bed in low ap3 position. Call light in reach. Side rails up X2. monitoring coordinator on. Pulse ox on. NIBP on. Door closed. Noise minimized. Warm blanket given. 08:[address] via stretcher. ap3 08:52 CT Chest For PE Angio In Process Unspecified. EDMS 09:35 Jules Loving MD is Hospitalizing Provider. rn 20:33 No provider procedures requiring assistance completed. Patient admitted, IV remains in ad5 place. Administered Medications: 07:53 Drug: NS 0.9% 1000 ml Route: IV; Rate: 1000 ml; Site: right antecubital; ap3 09:49 Follow up: IV Status: Completed infusion; IV Intake: 1000ml ap3 09:58 Drug: Lovenox (enoxaparin) 1 mg/kg Route: Sub-Q; Site: right lower abdomen; ap3 10:43 Follow up: Response: No adverse reaction ap3 Intake: 09:49 IV: 1000ml; Total: 1000ml. ap3 Outcome: 09:36 Decision to Hospitalize by Provider. rn 20:33 Admitted to ER Hold. Please see [facility] for further documentation. ad5 20:33 Condition: stable 20:33 Instructed on the need for admit, Demonstrated understanding of instructions. 01/24 04:04 Patient left the ED. em Signatures: Dispatcher [employer] EDJus Ricci, RN RN em Yared Lainez MD MD rn Martinez, Eric em1 Daksha Ku RN RN ap3 Carlos Chapa ad5
[2021-01-23] MEDS ORDERED: NA CHLORIDE 0.9% 1,000 ML IV SCH (18:00)
[2021-01-23] MEDS ORDERED: clonazePAM 0.5 MG TAB PO PRN (21:27)
--- NOTE | 2021-01-23 21:30 | P.CNS ---
Date of Consult: 01/23/21 (Pt agreed to TV) Reason for Consult: PE and COVID Chief Complaint: Patient with pulmonary embolism History of Present Illness: AGe 70 AW PE secondary to COVID/ SOb stable Allergies No Known Allergies Allergy (Verified 01/22/21 12:43) - Past Medical/Surgical History -: Type 2 diabetes -: Tonsillectomy - Family History Father Family History: Reviewed- Non-Contributory - Social History Alcohol use: No CD- Drugs: No Caffeine use: No Review of Systems Respiratory: Shortness of Breath Physical Examination Temp Pulse Resp BP Pulse Ox 98 F 86 24 H 120/58 L 94 01/23/21 16:00 01/23/21 16:00 01/23/21 16:00 01/23/21 16:00 01/23/21 12:00 - Problems (1) Pulmonary embolism Current Visit: Yes Status: Acute Plan: AW [place] from COVID stable/ VS O2 satisfactory/ Poss Dc home am. Anticoag for 3 months (2) Pneumonia due to COVID-19 virus Current Visit: Yes Status: Acute Plan: COVID penumonia/ on steroids and Barcitnib/CRP elevated
[2021-01-23] MEDS ORDERED: clonazePAM 0.5 MG TAB ONE (22:11)
[2021-01-24] MEDS: ALBUTEROL 2.5 MG/3 ML NEB SOL NEB SCH ×2 (02:00→08:10)
[2021-01-24] MEDS: IPRATROPIUM BROM 0.5MG/2.5ML NEB SCH ×2 (02:00→08:10)
[2021-01-24] MEDS: MORPHINE 2 MG/ML SYR IV PRN (02:11)
[2021-01-24] MEDS ORDERED: MORPHINE 2 MG/ML SYR ONE (02:30)
[2021-01-24 03:17] LABS: MPV 7.9 fL (7.6-11.3); RBC Red Blood Cell Count 4.08 M/uL (4.33-5.43)
[2021-01-24 03:40] LABS: ALT/SGPT 38 U/L (12-78); AST/SGOT 24 U/L (15-37); Alkaline Phosphatase 93 U/L (45-117); BUN Blood Urea Nitrogen 17 mg/dL (7-18); Bicarbonate 26 mmol/L (21-32); Bilirubin Total 0.7 mg/dL (0.2-1.0); Glucose Level 274 mg/dL (74-106); Magnesium 2.3 mg/dL (1.8-2.4); Phosphorus 1.9 mg/dL (2.5-4.9); Potassium 3.2 mmol/L (3.5-5.1); Protein, Total 6.4 g/dL (6.4-8.2); Sodium Level 135 mmol/L (136-145)
[2021-01-24] MEDS: GLUCERNA SHAKE 237 ML CAN PO SCH ×2 (09:00→20:16)
[2021-01-24] MEDS ORDERED: NA CHLORIDE 0.9% 1,000 ML IV SCH (09:00)
[2021-01-24] MEDS: METHYLPREDNISOLONE 40 MG INJ IV SCH ×2 (09:00→20:15)
--- NOTE | 2021-01-24 09:11 | P.PN ---
Subjective Date of Service: 01/24/21 (TV) Chief Complaint: Patient with pulmonary embolism Subjective: Improving (more alert today/ WBC very high, BP low) Review of Systems General: Weakness Respiratory: Shortness of Breath Physical Examination - Vital Signs Temperature: 98.3 F Blood Pressure: 107/63 Pulse: 117 Respirations: 23 Pulse Ox (%): 91 - Studies Microbiology Data (last 24 hrs): 01/22/21 07:50 Clean Catch Urine [place] Count - Final BETWEEN 10,000 & 100,000 CFU/ML 01/22/21 07:50 Clean Catch Urine - Final MIXED ASTER. Medications List Reviewed: Yes Assessment & Plan - Problems (Diagnosis) (1) Pulmonary embolism Current Visit: Yes Status: Acute Plan: Stable/ O2 satisfactory (2) Pneumonia due to COVID-19 virus Current Visit: Yes Status: Acute Plan: Oxygeneation satisfac/ Blood cultures. UA, Add levaquin and IV Fluids/ Reduce dose of steroids
[2021-01-24 09:22] LABS: Protime INR 1.89
[2021-01-24] MEDS: INSULIN 70/30 100 UNITS/ML SQ SCH ×2 (10:52→16:55)
[2021-01-24] MEDS: SERTRALINE HCL 50 MG TAB PO SCH (10:53)
[2021-01-24] MEDS: FAMOTIDINE 20 MG/2 ML VIAL IV SCH ×2 (10:53→20:15)
[2021-01-24] MEDS: Levofloxacin 750mg IV 750 MG/150 ML BAG IV SCH (10:53)
[2021-01-24] MEDS: APIXABAN 5 MG TABLET PO SCH ×2 (10:53→20:15)
[2021-01-24] MEDS: BARICITINIB 2 MG TABLET PO SCH (10:54)
[2021-01-24] MEDS: INSULIN -REGULAR HUMAN 50 UNIT/0.5 ML ML SQ SCH ×4 (10:55→20:14)
--- NOTE | 2021-01-24 17:31 | P.PN ---
Date of Service: 01/24/21 Subjective Patient clinically doing well. He wants to go home. Currently in atrial fibrillation. Patient with rapid ventricular response in on medication. If converts into a normal rhythm and echo is normal then anticipate discharge in the morning. Review of Systems 10-point ROS is otherwise unremarkable Physical Examination - Vital Signs Reviewed - Physical Exam General: Alert, In no apparent distress, Oriented x3 Respiratory: Diminished, Crackles/rales Cardiovascular: irregularly irregular with systolic ejection murmur Gastrointestinal: Normal bowel sounds, Soft and benign, Non-distended, No tenderness, No rebound, No guarding Musculoskeletal: No clubbing, No swelling, No tenderness Neurological: Sensation intact, Cranial nerves 3-12 intact Assessment & Plan - Problems (Diagnosis) (1) Pulmonary embolism Current Visit: Yes Status: Acute (2) Pneumonia due to COVID-19 virus Current Visit: Yes Status: Acute (3) Hypoxemia Current Visit: Yes Status: Acute (4) DM2 (diabetes mellitus, type 2) Current Visit: Yes Status: Acute 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 Continue with IV steroids 2. Monitor inflammatory markers 3. Repeat chest x-ray if symptoms are progressively worsening 4. O2 per protocol 5. Appreciate Pulmonary consultation 6. Continue with albuterol inhaler therapy; also supportive care 7. ECHO 8. Full dose anticoagulation; monitor INR 9. Continue with medications for atrial fibrillation 9. GI/DVT prophylaxis
[2021-01-24] MEDS: NA CHLORIDE 0.9% 1,000 ML IV SCH ×2 (17:52→22:13)
[2021-01-24] MEDS ORDERED: METOPROLOL TAR 25 MG TAB PO SCH (18:00)
[2021-01-24] MEDS: METOPROLOL TAR 25 MG TAB PO SCH (18:00)
[2021-01-24] MEDS ORDERED: DIGOXIN 0.25 MG TABLET PO ONE (18:00)
[2021-01-25] MEDS: METOPROLOL TAR 25 MG TAB PO SCH ×2 (06:01→18:00)
[2021-01-25 06:11] LABS: Protime INR 2.61
--- NOTE | 2021-01-25 07:32 | EKG ---
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
--- NOTE | 2021-01-25 07:58 | ECHO ---
HEIGHT: 5 ft 10 in WEIGHT: 162 lb 8 oz DATE OF STUDY: 01/23/[address]: Jules Loving MD 2-DIMENSIONAL: YES M.MODE: YES DOPPLER: YES COLOR FLOW: YES TDS: NO PORTABLE: NO DEFINITY: NO BUBBLE STUDY: NO DIAGNOSIS: PE CARDIAC HISTORY: CATHERIZATION: NO SURGERY: NO PROSTHETIC VALVE: NO PACEMAKER: NO MEASUREMENTS (cm) DIASTOLIC (NORMALS) SYSTOLIC (NORMALS) IVSd 1.0 (0.6-1.2) LA Diam 2.4 (1.9-4.0) LVEF 64% LVIDd 3.3 (3.5-5.7) LVIDs 2.2 (2.0-3.5) %FS 34% LVPWd 1.3 (0.6-1.2) Ao Diam (2.0-3.7) 2 DIMENSIONAL ASSESSMENT: RIGHT ATRIUM: NORMAL LEFT ATRIUM: NORMAL RIGHT VENTRICLE: NORMAL LEFT VENTRICLE: NORMAL TRICUSPID VALVE: NORMAL MITRAL VALVE: NORMAL PULMONIC VALVE: NORMAL AORTIC VALVE: NORMAL PERICARDIAL EFFUSION: NONE AORTIC ROOT: NORMAL LEFT VENTRICULAR WALL MOTION: NORMAL DOPPLER/COLOR FLOW: MILD TRICUSPID REGURGITATION. COMMENTS: NORMAL LEFT SIZE AND FUNCTION. MILD TRICUSPID REGURGITATION. NORMAL RIGHT VENTRICULAR SYSTOLIC PRESSURE. TECHNOLOGIST: Nuupr HAMMOND
[2021-01-25] MEDS: METHYLPREDNISOLONE 40 MG INJ IV SCH ×2 (08:34→21:15)
[2021-01-25] MEDS: APIXABAN 5 MG TABLET PO SCH ×2 (08:34→21:14)
[2021-01-25] MEDS: SERTRALINE HCL 50 MG TAB PO SCH (08:34)
[2021-01-25] MEDS: INSULIN -REGULAR HUMAN 50 UNIT/0.5 ML ML SQ SCH ×4 (08:35→21:00)
[2021-01-25] MEDS: FAMOTIDINE 20 MG/2 ML VIAL IV SCH ×2 (08:35→21:14)
[2021-01-25] MEDS: DIGOXIN 0.25 MG TABLET PO SCH (08:35)
[2021-01-25] MEDS: Levofloxacin 750mg IV 750 MG/150 ML BAG IV SCH (08:36)
[2021-01-25] MEDS: GLUCERNA SHAKE 237 ML CAN PO SCH ×2 (08:36→21:00)
[2021-01-25] MEDS: BARICITINIB 2 MG TABLET PO SCH (08:36)
[2021-01-25] MEDS: INSULIN 70/30 100 UNITS/ML SQ SCH ×2 (08:37→18:18)
[2021-01-25] MEDS ORDERED: CEFTRIAXONE/SWI 1gm 1 GM/10 ML SYR IV ONE (10:00)
--- NOTE | 2021-01-25 11:24 | RAD REPORT ---
EXAM DESCRIPTION: Joseph Single View01/25/2021 11:08 am CLINICAL HISTORY: Chest pain COMPARISON: January 23 FINDINGS: The bilateral pulmonary opacities have partially resolved. Heart is normal size
--- NOTE | 2021-01-25 11:53 | CON ---
Date of Consultation: 01/24/2021 The patient was admitted on 01/22/2021 with COVID pneumonia to Dr. Loving. The patient consultation wa s on 01/24/2021. The patient was actually not seen, I just really gave my opinion in his regard as t o respond to Dr. Loving's concern. The patient had atrial fibrillation, which has resolved by the time the case was discussed. History Of Present Illness: Mr. Aminah delacruz is a 70-year-old. He has a history of diabetes that is insulin dependent. Came in for what appears to be diagnosis as COVID pneumonia and emphysema. W hile he was being treated, he developed short run of atrial fibrillation that resolved. He had been on Eliquis. He was given digoxin. He is otherwise on antibiotics, steroids, and insulin. I did rec ommend to do a 2D echocardiogram on him to rule out cardiomyopathy secondary to the COVID, but his ec hocardiogram was perfectly normal. I really would not change his regimen at this point. I think thi s was a reaction to hypoxia and his pneumonia. I would, when he goes home, continue the Eliquis, con tinue the metformin. I would really avoid using metoprolol at this point. If he has recurrent atrial fibrillation, then we will readdress this issue. Again, his echocardiogra m is normal. No evidence of right ventricular strain. No pulmonary hypertension. Right upper lobe pulmonary embolism is present on the CT angiogram and we would continue treatment for that. I will h ave Pulmonology decide on the length of therapy. I am assuming he probably be on Eliquis for at leas t 6 months. MAXI/ASTER Voice ID: [id number] Report ID: [id number]
[2021-01-25 12:05] LABS: Basophils % 0.4 % (0-1.3); Hematocrit 35.6 % (39.6-49.0); Lymphocytes % 3.8 % (15.3-44.8); MPV 8.1 fL (7.6-11.3); RBC Red Blood Cell Count 3.88 M/uL (4.33-5.43)
[2021-01-25 12:20] LABS: BUN Blood Urea Nitrogen 21 mg/dL (7-18); Bicarbonate 30 mmol/L (21-32); Glucose Level 299 mg/dL (74-106); Magnesium 2.3 mg/dL (1.8-2.4); NT PRO-BNP 959 pg/mL (<125); Phosphorus 2.4 mg/dL (2.5-4.9); Potassium 3.8 mmol/L (3.5-5.1); Sodium Level 136 mmol/L (136-145)
[2021-01-25 13:28] LABS: Blood Morphology Comment NOT SEEN (NOT SEEN); Platelet Estimate ADEQ
--- NOTE | 2021-01-26 07:12 | P.PN ---
Date of Service: 01/25/21 Subjective Patient was little tachypneic on ambulation. Spoke with nursing staff and at this time will hold the discharge. Review of Systems 10-point ROS is otherwise unremarkable Physical Examination - Vital Signs Reviewed - Physical Exam General: Alert, In no apparent distress, Oriented x3 Respiratory: Diminished, Crackles/rales Cardiovascular: Regular rate and rhythm Gastrointestinal: Normal bowel sounds, Soft and benign, Non-distended, No tenderness, No rebound, No guarding Musculoskeletal: No clubbing, No swelling, No tenderness Neurological: Sensation intact, Cranial nerves 3-12 intact Assessment & Plan - Problems (Diagnosis) (1) Pulmonary embolism Current Visit: Yes Status: Acute (2) Pneumonia due to COVID-19 virus Current Visit: Yes Status: Acute (3) Hypoxemia Current Visit: Yes Status: Acute (4) DM2 (diabetes mellitus, type 2) Current Visit: Yes Status: Acute 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 Continue with IV steroids 2. Monitor inflammatory markers 3. Repeat chest x-ray if symptoms are progressively worsening 4. O2 per protocol 5. Appreciate Pulmonary consultation 6. Continue with albuterol inhaler therapy; also supportive care 7. ECHO reviewed and discuss with Cardiology. No significant abnormalities. 8. Full dose anticoagulation; monitor INR 9. No outpatient treatment for atrial fibrillation and Cardiology will follow as an outpatient. Continue anti coagulation 19. GI/DVT prophylaxis
[2021-01-26] MEDS: INSULIN -REGULAR HUMAN 50 UNIT/0.5 ML ML SQ SCH ×4 (07:30→21:00)
--- NOTE | 2021-01-26 08:11 | P.PN ---
Subjective Date of Service: 01/26/21 Chief Complaint: Patient with pulmonary embolism Subjective: Improving (Weak O2 better) Review of Systems General: Weakness Physical Examination - Vital Signs Temperature: 97.3 F Blood Pressure: 120/68 Pulse: 61 Respirations: 16 Pulse Ox (%): 93 - Physical Exam General: Alert, Cooperative - Studies Medications List Reviewed: Yes Assessment & Plan - Problems (Diagnosis) (1) Pulmonary embolism Current Visit: Yes Status: Acute Plan: Stable/ O2 satisfactory/ NC (2) Pneumonia due to COVID-19 virus Current Visit: Yes Status: Acute Plan: Change to po pred/ DC Barcitinib/ BC pos Gneg damian. WBC improving
[2021-01-26] MEDS: GLUCERNA SHAKE 237 ML CAN PO SCH ×2 (09:00→21:00)
[2021-01-26] MEDS: INSULIN 70/30 100 UNITS/ML SQ SCH ×2 (09:05→16:57)
[2021-01-26] MEDS: SERTRALINE HCL 50 MG TAB PO SCH (09:06)
[2021-01-26] MEDS: DIGOXIN 0.25 MG TABLET PO SCH (09:06)
[2021-01-26] MEDS: APIXABAN 5 MG TABLET PO SCH ×2 (09:06→21:16)
[2021-01-26] MEDS: predniSONE 20 MG TAB PO SCH ×2 (09:06→21:18)
[2021-01-26] MEDS: Levofloxacin 750mg IV 750 MG/150 ML BAG IV SCH (09:07)
[2021-01-26] MEDS: FAMOTIDINE 20 MG/2 ML VIAL IV SCH ×2 (09:07→21:18)
[2021-01-26] MEDS: NA CHLORIDE 0.9% 1,000 ML IV SCH (09:12)
[2021-01-26] MEDS: METOPROLOL TAR 25 MG TAB PO SCH ×2 (09:14→16:59)
[2021-01-26 14:36] LABS: Absolute Lymphocytes (CBC) 0.9 K/uL (0.7-4.9); Basophils % 0.2 % (0-1.3); Hematocrit 39.9 % (39.6-49.0); Lymphocytes % 4.1 % (15.3-44.8); MPV 7.7 fL (7.6-11.3); RBC Red Blood Cell Count 4.35 M/uL (4.33-5.43)
[2021-01-27] MEDS: NA CHLORIDE 0.9% 1,000 ML IV SCH (03:56)
[2021-01-27] MEDS: METOPROLOL TAR 25 MG TAB PO SCH ×2 (06:02→17:44)
[2021-01-27] MEDS: INSULIN -REGULAR HUMAN 50 UNIT/0.5 ML ML SQ SCH ×4 (07:30→20:34)
[2021-01-27] MEDS: INSULIN 70/30 100 UNITS/ML SQ SCH ×2 (08:00→17:42)
[2021-01-27] MEDS: Levofloxacin 750mg IV 750 MG/150 ML BAG IV SCH (08:41)
[2021-01-27] MEDS: SERTRALINE HCL 50 MG TAB PO SCH (08:41)
[2021-01-27] MEDS: FAMOTIDINE 20 MG/2 ML VIAL IV SCH ×2 (08:41→20:32)
[2021-01-27] MEDS: APIXABAN 5 MG TABLET PO SCH ×2 (08:41→20:32)
[2021-01-27] MEDS: predniSONE 20 MG TAB PO SCH ×2 (08:41→20:32)
[2021-01-27] MEDS: DIGOXIN 0.25 MG TABLET PO SCH (08:42)
[2021-01-27] MEDS: GLUCERNA SHAKE 237 ML CAN PO SCH ×2 (08:42→20:34)
--- NOTE | 2021-01-27 11:52 | P.PN ---
Subjective Date of Service: 01/27/21 Chief Complaint: WEak with sig desat/ Nc / Weak not eating and drinking well Review of Systems General: Weakness Respiratory: Shortness of Breath Physical Examination - Vital Signs Temperature: 98.8 F Blood Pressure: 91/48 Pulse: 58 Respirations: 19 Pulse Ox (%): 96 - Physical Exam General: Alert, Oriented x3, Mild distress - Studies Medications List Reviewed: Yes Assessment & Plan - Problems (Diagnosis) (1) Pulmonary embolism Current Visit: Yes Status: Acute Plan: Stable/ O2 satisfactory/ NC (2) Pneumonia due to COVID-19 virus Current Visit: Yes Status: Acute Plan: RA o2 satisfactory/ Refused [facility]/ awaitng LTAC/ Weak WBC is declining
[2021-01-28] MEDS: NA CHLORIDE 0.9% 1,000 ML IV SCH ×2 (03:00→19:38)
[2021-01-28] MEDS: METOPROLOL TAR 25 MG TAB PO SCH ×2 (06:00→18:00)
[2021-01-28] MEDS: INSULIN -REGULAR HUMAN 50 UNIT/0.5 ML ML SQ SCH ×4 (07:30→19:39)
--- NOTE | 2021-01-28 08:11 | P.PN ---
Date of Service: 01/26/21 Subjective Patient remains pretty weak. Tried again to get him up and walk and but he said he just felt too weak and had to sit on the side of the bed. He probably need care home facility placement. He is pretty weak and his strength is significantly diminished. Chest x-ray show some resolution of the infiltrates. Review of Systems 10-point ROS is otherwise unremarkable Physical Examination - Vital Signs Reviewed - Physical Exam General: Alert, In no apparent distress, Oriented x3 Respiratory: Diminished, Crackles/rales Cardiovascular: Regular rate and rhythm Gastrointestinal: Normal bowel sounds, Soft and benign, Non-distended, No tenderness, No rebound, No guarding Musculoskeletal: No clubbing, No swelling, No tenderness Neurological: Sensation intact, Cranial nerves 3-12 intact Assessment & Plan - Problems (Diagnosis) (1) Pulmonary embolism Current Visit: Yes Status: Acute (2) Pneumonia due to COVID-19 virus Current Visit: Yes Status: Acute (3) Hypoxemia Current Visit: Yes Status: Acute (4) DM2 (diabetes mellitus, type 2) Current Visit: Yes Status: Acute 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 Continue with IV steroids; start weaning off 2. Patient's chest x-ray showing improvement. Continue weaning off all oxygen 3. Appreciate Pulmonary consultation 4. Continue with albuterol inhaler therapy; also supportive care 5. ECHO reviewed and discussed with Cardiology. No significant abnormalities. 6. Full dose anticoagulation; monitor INR 7. No outpatient treatment for atrial fibrillation and Cardiology will follow as an outpatient. Continue anticoagulation 8. Plan on care home facility placement his strength is not improving; patient lives with significant other who just was discharged from the hospital. She really is unable to help care for him. Patient's has his significant other's daughter who also helps out living in the trailer in the back but he probably needs physical therapy and continue nursing care. 9. GI/DVT prophylaxis
--- NOTE | 2021-01-28 08:19 | P.PN ---
Date of Service: 01/27/21 Subjective Patient clinically feeling better. However, we do stand him up he gets really weak in his oxygen saturation still drops to about 85-86%. Physically is not really able to go home and care for himself at this time. Work on group home facility placement. Review of Systems 10-point ROS is otherwise unremarkable Physical Examination - Vital Signs Reviewed - Physical Exam General: Alert, In no apparent distress, Oriented x3 Respiratory: Diminished, Crackles/rales Cardiovascular: Regular rate and rhythm Gastrointestinal: Normal bowel sounds, Soft and benign, Non-distended, No tenderness, No rebound, No guarding Musculoskeletal: No clubbing, No swelling, No tenderness Neurological: Sensation intact, Cranial nerves 3-12 intact; generalized weakness Assessment & Plan - Problems (Diagnosis) (1) Pulmonary embolism with hypoxemia Current Visit: Yes Status: Acute (2) Pneumonia due to COVID-19 virus Current Visit: Yes Status: Acute (3) Hypoxemia Current Visit: Yes Status: Acute (4) DM2 (diabetes mellitus, type 2) Current Visit: Yes Status: Acute 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 Patient with myopathy and will continue to wean down the steroids. Most likely related to significant hypoxemia and prolonged hospitalization in the ICU. Also may be related to steroids so will decrease and wean off since inflammation improved on chest x-ray 2. Continue O2 per protocol 3. Appreciate Pulmonary consultation 4. Continue supportive care 5. ECHO reviewed and discussed with Cardiology. No significant abnormalities. Cardiology does not want any medication at this time for atrial fibrillation and will continue monitoring as an outpatient. Continue with anti coagulation for pulmonary embolism 6. Inpatient rehab versus group home facility placement. Patient with critical care myopathy and steroid-induced myopathy. 7. GI/DVT prophylaxis
--- NOTE | 2021-01-28 08:24 | P.PN ---
Date of Service: 01/28/21 Subjective Patient remains stable but is weak and needs placement since he is not able to care for himself. Case management consultation for inpatient rehab versus SNF placement. Blood culture repeat pending as well. May change to oral Levaquin if labs are stable Review of Systems 10-point ROS is otherwise unremarkable Physical Examination - Vital Signs Reviewed - Physical Exam General: Alert, In no apparent distress, Oriented x3 Respiratory: Diminished, Crackles/rales Cardiovascular: Regular rate and rhythm Gastrointestinal: Normal bowel sounds, Soft and benign, Non-distended, No tenderness, No rebound, No guarding Musculoskeletal: No clubbing, No swelling, No tenderness Neurological: Sensation intact, Cranial nerves 3-12 intact; generalized weakness Assessment & Plan - Problems (Diagnosis) (1) Pulmonary embolism with hypoxemia Current Visit: Yes Status: Acute (2) Pneumonia due to COVID-19 virus Current Visit: Yes Status: Acute (3) Pseudomonas bacteremia-1/2 bottles Current Visit: Yes Status: Acute (4) DM2 (diabetes mellitus, type 2) Current Visit: Yes Status: Acute 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 Patient with myopathy and will continue to wean down the steroids. Most likely related to significant hypoxemia and prolonged hospitalization in the ICU. Also may be related to steroids so will decrease and wean off since infla mmation improved on chest x-ray 2. Continue O2 per protocol 3. Appreciate Pulmonary consultation 4. Repeat blood cultures pending; continue Levaquin 5. Cardiology does not want any medication at this time for atrial fibrillation and will continue monitoring as an outpatient. Continue with anti coagulation for pulmonary embolism 6. Inpatient rehab versus shelter facility placement. Patient with critical care myopathy and steroid-induced myopathy. Also will get dietary to evaluate for caloric intake 7. GI/DVT prophylaxis
[2021-01-28] MEDS: FAMOTIDINE 20 MG/2 ML VIAL IV SCH ×2 (08:59→19:40)
[2021-01-28] MEDS: SERTRALINE HCL 50 MG TAB PO SCH (09:02)
[2021-01-28] MEDS: INSULIN 70/30 100 UNITS/ML SQ SCH ×2 (09:02→18:15)
[2021-01-28] MEDS: DIGOXIN 0.25 MG TABLET PO SCH (09:02)
[2021-01-28] MEDS: APIXABAN 5 MG TABLET PO SCH ×2 (09:02→19:39)
[2021-01-28] MEDS: predniSONE 20 MG TAB PO SCH (09:02)
[2021-01-28] MEDS: GLUCERNA SHAKE 237 ML CAN PO SCH ×2 (09:04→19:40)
[2021-01-28] MEDS: Levofloxacin 750mg IV 750 MG/150 ML BAG IV SCH (09:04)
[2021-01-28 12:35] LABS: Absolute Lymphocytes (CBC) 0.7 K/uL (0.7-4.9); Basophils % 0.1 % (0-1.3); Lymphocytes % 5.5 % (15.3-44.8); MPV 7.8 fL (7.6-11.3); RBC Red Blood Cell Count 4.51 M/uL (4.33-5.43)
[2021-01-28 12:50] LABS: BUN Blood Urea Nitrogen 14 mg/dL (7-18); Bicarbonate 29 mmol/L (21-32); Glucose Level 165 mg/dL (74-106); Magnesium 2.2 mg/dL (1.8-2.4); NT PRO-BNP 247 pg/mL (<125); Potassium 3.5 mmol/L (3.5-5.1); Sodium Level 135 mmol/L (136-145)
--- NOTE | 2021-01-28 14:49 | P.PN ---
Subjective Date of Service: 01/28/21 Chief Complaint: Weak and SOB Still weak/ BC pos for pseudomonas/ WBC is declining Review of Systems General: Weakness Respiratory: Shortness of Breath Physical Examination - Vital Signs Temperature: 97.3 F Blood Pressure: 92/57 Pulse: 77 Respirations: 12 Pulse Ox (%): 94 - Studies Medications List Reviewed: Yes Assessment & Plan - Problems (Diagnosis) (1) Pulmonary embolism Current Visit: Yes Status: Acute Plan: Stable/ O2 satisfactory/ NC (2) Pneumonia due to COVID-19 virus Current Visit: Yes Status: Acute Plan: Still weak, eating better/ BC pos for pseudomonas/ WBC declining sens to Levaquin/ VS stabel labs reviewed/ renal fucntion normal
[2021-01-28] MEDS: JUVEN PACKET PO SCH (19:39)
[2021-01-28] MEDS: predniSONE 10 MG TAB PO SCH (19:40)
[2021-01-29 04:40] LABS: Absolute Lymphocytes (CBC) 0.9 K/uL (0.7-4.9); Basophils % 0.3 % (0-1.3); Lymphocytes % 7.9 % (15.3-44.8); MPV 7.6 fL (7.6-11.3); RBC Red Blood Cell Count 3.98 M/uL (4.33-5.43)
[2021-01-29 04:47] LABS: ALT/SGPT 43 U/L (12-78); AST/SGOT 24 U/L (15-37); Albumin 1.7 g/dL (3.4-5.0); Alkaline Phosphatase 64 U/L (45-117); BUN Blood Urea Nitrogen 13 mg/dL (7-18); Bicarbonate 30 mmol/L (21-32); Bilirubin Total 0.6 mg/dL (0.2-1.0); Glucose Level 80 mg/dL (74-106); Magnesium 2.1 mg/dL (1.8-2.4); Potassium 3.5 mmol/L (3.5-5.1); Protein, Total 5.7 g/dL (6.4-8.2); Sodium Level 137 mmol/L (136-145)
[2021-01-29] MEDS: METOPROLOL TAR 25 MG TAB PO SCH ×2 (05:36→16:51)
[2021-01-29 07:14] LABS: Blood Morphology Comment NOT SEEN (NOT SEEN); Platelet Estimate INCR; Platelets, Giant NOTED
[2021-01-29] MEDS: INSULIN -REGULAR HUMAN 50 UNIT/0.5 ML ML SQ SCH ×4 (07:30→20:59)
[2021-01-29] MEDS: INSULIN 70/30 100 UNITS/ML SQ SCH ×2 (08:00→16:50)
[2021-01-29] MEDS: predniSONE 10 MG TAB PO SCH ×2 (08:44→20:58)
[2021-01-29] MEDS: APIXABAN 5 MG TABLET PO SCH ×2 (08:44→20:58)
[2021-01-29] MEDS: SERTRALINE HCL 50 MG TAB PO SCH (08:44)
[2021-01-29] MEDS: DIGOXIN 0.25 MG TABLET PO SCH (08:45)
[2021-01-29] MEDS: FAMOTIDINE 20 MG/2 ML VIAL IV SCH ×2 (08:45→20:58)
[2021-01-29] MEDS: Levofloxacin 750mg IV 750 MG/150 ML BAG IV SCH (08:46)
[2021-01-29] MEDS: GLUCERNA SHAKE 237 ML CAN PO SCH ×2 (08:48→20:59)
[2021-01-29] MEDS: JUVEN PACKET PO SCH ×2 (09:00→20:59)
--- NOTE | 2021-01-29 17:11 | P.PN ---
Subjective Date of Service: 01/29/21 Chief Complaint: Weak and SOB Subjective: Improving, Doing well (Still feeling very weak.) Physical Examination - Vital Signs Temperature: 97.9 F Blood Pressure: 102/58 Pulse: 72 Respirations: 16 Pulse Ox (%): 95 - Studies Medications List Reviewed: Yes Assessment & Plan Discharge Plan: Other (penitentiary facility) Plan to discharge in: 24 Hours Physician Review Additional Text: COVID: Positive CT Scan: COMPARISON: Chest For Pe Angio dated 01/14/2021 TECHNIQUE: CT angiogram of the pulmonary arteries was performed with MIP. All CT scans are performed using dose optimization technique as appropriate and may include automated exposure control or mA/KV adjustment according to patient size. FINDINGS: Filling defect is present in the right upper lobe pulmonary arterial tree compatible with pulmonary embolism. No evidence of significant RV strain pattern. No acute aortic finding demonstrated. Moderate peripherally oriented ground-glass opacities are present greatest in the lung bases. No significant pericardial or pleural fluid. No concerning bony finding. IMPRESSION: Right upper lobe pulmonary embolism is present. Moderate peripherally oriented ground-glass lung opacities compatible with COVID-19 infection. ECHO: MEASUREMENTS (cm) DIASTOLIC (NORMALS) SYSTOLIC (NORMALS) IVSd 1.0 (0.6-1.2) LA Diam 2.4 (1.9-4.0) LVEF 64% LVIDd 3.3 (3.5-5.7) LVIDs 2.2 (2.0-3.5) %FS 34% LVPWd 1.3 (0.6-1.2) Ao Diam (2.0-3.7) 2 DIMENSIONAL ASSESSMENT: RIGHT ATRIUM: NORMAL LEFT ATRIUM: NORMAL RIGHT VENTRICLE: NORMAL LEFT VENTRICLE: NORMAL TRICUSPID VALVE: NORMAL MITRAL VALVE: NORMAL PULMONIC VALVE: NORMAL AORTIC VALVE: NORMAL PERICARDIAL EFFUSION: NONE AORTIC ROOT: NORMAL LEFT VENTRICULAR WALL MOTION: NORMAL DOPPLER/COLOR FLOW: MILD TRICUSPID REGURGITATION. COMMENTS: NORMAL LEFT SIZE AND FUNCTION. MILD TRICUSPID REGURGITATION. NORMAL RIGHT VENTRICULAR SYSTOLIC PRESSURE. Follow up CXR: COMPARISON: January 23 FINDINGS: The bilateral pulmonary opacities have partially resolved. Heart is normal size Physical exam: General: Alert, In no apparent distress, Oriented x3 Respiratory: Diminished, Crackles/rales currently on room air. Cardiovascular: Regular rate and rhythm Gastrointestinal: Normal bowel sounds, Soft and benign, Non-distended, No tenderness, No rebound, No guarding Musculoskeletal: No clubbing, No swelling, No tenderness Neurological: Sensation intact, Cranial nerves 3-12 intact; generalized weakness Impression: Acute respiratory failure with hypoxia secondary to right upper lobe pulmonary embolism complicated with bilateral COVID-19 pneumonia BacteremiaPseudomonas Diabetes mellitus type 2 Atrial fibrillation Critical care myopathy Depression with anxiety Plan: Continue with plan of care as mentioned below: 1. Patient doing well. Continue current medications. Will transition IV medication to oral. 2. Continue O2 per protocol. Currently on room air. Physical therapy to continue to work with patient. 3. Continue with pulmonology and cardiology recommendations. 4. Repeat blood cultures negative. Will change Levaquin to oral. Will treat for a total of 14 days. Echo unremarkable. 5. Continue with anticoagulation therapy 6. Recommend skilled placement. Social work to help with this. 7. GI/DVT prophylaxis 8. Currently on digoxin daily and metoprolol for atrial fibrillation 9. Continue Zoloft and clonazepam. 10. Dietary consulted to help with daily needs. Discontinue IV fluids. CODE STATUS: Full code DVT prophylaxis: [facility] [id number] minutes: Skilled placement facility to continue rehabilitation Time Spent Managing Pts Care (In Minutes): 55
[2021-01-30] MEDS: METOPROLOL TAR 25 MG TAB PO SCH ×2 (05:42→17:02)
--- NOTE | 2021-01-30 06:15 | P.PN ---
Subjective Date of Service: 01/30/21 Chief Complaint: Weak and SOB Subjective: Improving, Doing well Physical Examination - Vital Signs Temperature: 97.3 F Blood Pressure: 96/56 Pulse: 61 Respirations: 18 Pulse Ox (%): 94 - Studies Medications List Reviewed: Yes Assessment & Plan Discharge Plan: Home Plan to discharge in: 48 Hours Physician Review Additional Text: COVID: Positive CT Scan: COMPARISON: Chest For Pe Angio dated 01/14/2021 TECHNIQUE: CT angiogram of the pulmonary arteries was performed with MIP. All CT scans are performed using dose optimization technique as appropriate and may include automated exposure control or mA/KV adjustment according to patient size. FINDINGS: Filling defect is present in the right upper lobe pulmonary arterial tree compatible with pulmonary embolism. No evidence of significant RV strain pattern. No acute aortic finding demonstrated. Moderate peripherally oriented ground-glass opacities are present greatest in the lung bases. No significant pericardial or pleural fluid. No concerning bony finding. IMPRESSION: Right upper lobe pulmonary embolism is present. Moderate peripherally oriented ground-glass lung opacities compatible with COVID-19 infection. ECHO: MEASUREMENTS (cm) DIASTOLIC (NORMALS) SYSTOLIC (NORMALS) IVSd 1.0 (0.6-1.2) LA Diam 2.4 (1.9-4.0) LVEF 64% LVIDd 3.3 (3.5-5.7) LVIDs 2.2 (2.0-3.5) %FS 34% LVPWd 1.3 (0.6-1.2) Ao Diam (2.0-3.7) 2 DIMENSIONAL ASSESSMENT: RIGHT ATRIUM: NORMAL LEFT ATRIUM: NORMAL RIGHT VENTRICLE: NORMAL LEFT VENTRICLE: NORMAL TRICUSPID VALVE: NORMAL MITRAL VALVE: NORMAL PULMONIC VALVE: NORMAL AORTIC VALVE: NORMAL PERICARDIAL EFFUSION: NONE AORTIC ROOT: NORMAL LEFT VENTRICULAR WALL MOTION: NORMAL DOPPLER/COLOR FLOW: MILD TRICUSPID REGURGITATION. COMMENTS: NORMAL LEFT SIZE AND FUNCTION. MILD TRICUSPID REGURGITATION. NORMAL RIGHT VENTRICULAR SYSTOLIC PRESSURE. Follow up CXR: COMPARISON: January 23 FINDINGS: The bilateral pulmonary opacities have partially resolved. Heart is normal size Physical exam: General: Alert, In no apparent distress, Oriented x3 Respiratory: Diminished, Crackles/rales currently on room air. Cardiovascular: Regular rate and rhythm Gastrointestinal: Normal bowel sounds, Soft and benign, Non-distended, No tenderness, No rebound, No guarding Musculoskeletal: No clubbing, No swelling, No tenderness Neurological: Sensation intact, Cranial nerves 3-12 intact; generalized weakness Impression: Acute respiratory failure with hypoxia secondary to right upper lobe pulmonary embolism complicated with bilateral COVID-19 pneumonia BacteremiaPseudomonas Diabetes mellitus type 2 Atrial fibrillation Critical care myopathy Depression with anxiety Plan: Continue with plan of care as mentioned below: 1. Blood pressures remain low. Will give IV fluid bolus. Will start IV fluids. Encourage oral intake. Still not ready to go home. Patient desires to go home at discharge. Patient refusing skilled placement. If blood pressures remain low we will need to consider skilled placement. Medications adjusted to oral 2. Continue O2 per protocol. Currently on room air. Physical therapy to continue to work with patient. 3. Continue with pulmonology and cardiology recommendations. 4. Repeat blood cultures negative. Continue with Levaquin for total of 14 days. Echo unremarkable. 5. Continue with anticoagulation therapy 6. Recommend skilled placement. Social work to help with this. 7. GI/DVT prophylaxis 8. Currently on digoxin daily and metoprolol for atrial fibrillation. Metoprolol adjusted. 9. Continue Zoloft and clonazepam. 10. Dietary consulted to help with daily needs. CODE STATUS: Full code DVT prophylaxis: Eliquis [facility] [email or web address] minutes: Patient desires to go home at discharge Time Spent Managing Pts Care (In Minutes): 55
[2021-01-30 06:32] VITALS: BMI 22.4
[2021-01-30] MEDS: INSULIN -REGULAR HUMAN 50 UNIT/0.5 ML ML SQ SCH ×4 (07:30→20:16)
[2021-01-30] MEDS: DIGOXIN 0.25 MG TABLET PO SCH ×2 (08:10→08:15)
[2021-01-30] MEDS: INSULIN 70/30 100 UNITS/ML SQ SCH ×2 (08:10→16:49)
[2021-01-30] MEDS: SERTRALINE HCL 50 MG TAB PO SCH (08:10)
[2021-01-30] MEDS: FAMOTIDINE 20 MG/2 ML VIAL IV SCH ×2 (08:10→20:16)
[2021-01-30] MEDS: APIXABAN 5 MG TABLET PO SCH ×2 (08:10→20:16)
[2021-01-30] MEDS: levoFLOXacin 750 MG TAB PO SCH (08:10)
[2021-01-30] MEDS: predniSONE 10 MG TAB PO SCH ×2 (08:10→20:16)
[2021-01-30] MEDS: JUVEN PACKET PO SCH ×2 (08:11→20:17)
[2021-01-30] MEDS: GLUCERNA SHAKE 237 ML CAN PO SCH ×3 (08:11→20:17)
[2021-01-30] MEDS ORDERED: NA CHLORIDE 0.9% 250 ML IV ONE (10:14)
[2021-01-30 10:51] LABS: Absolute Lymphocytes (CBC) 0.9 K/uL (0.7-4.9); Basophils % 0.1 % (0-1.3); Hematocrit 38.4 % (39.6-49.0); Lymphocytes % 7.8 % (15.3-44.8); MPV 7.6 fL (7.6-11.3); RBC Red Blood Cell Count 4.22 M/uL (4.33-5.43)
[2021-01-30] MEDS ORDERED: NA CHLORIDE 0.9% 1,000 ML IV SCH (11:00)
[2021-01-30 11:26] LABS: BUN Blood Urea Nitrogen 13 mg/dL (7-18); Bicarbonate 31 mmol/L (21-32); Ferritin 1028.9 ng/mL (26-388); Glucose Level 205 mg/dL (74-106); Potassium 3.4 mmol/L (3.5-5.1); Sodium Level 133 mmol/L (136-145)
[2021-01-30] MEDS: NA CHLORIDE 0.9% 1,000 ML IV SCH (16:45)
[2021-01-31] MEDS: NA CHLORIDE 0.9% 1,000 ML IV SCH ×4 (01:01→19:25)
[2021-01-31] MEDS: METOPROLOL TAR 25 MG TAB PO SCH ×2 (05:37→15:48)
--- NOTE | 2021-01-31 06:02 | P.PN ---
Subjective Date of Service: 01/31/21 Chief Complaint: Weak and SOB Subjective: Improving, Other (Still very weak. Patient still with orthostatic changes currently on IV fluids.) Physical Examination - Vital Signs Temperature: 97.6 F Blood Pressure: 102/60 Pulse: 62 Respirations: 16 Pulse Ox (%): 97 - Studies Medications List Reviewed: Yes Assessment & Plan Discharge Plan: Other (Inpatient rehab) Plan to discharge in: 24 Hours Physician Review Additional Text: COVID: Positive CT Scan: COMPARISON: Chest For Pe Angio dated 01/14/2021 TECHNIQUE: CT angiogram of the pulmonary arteries was performed with MIP. All CT scans are performed using dose optimization technique as appropriate and may include automated exposure control or mA/KV adjustment according to patient size. FINDINGS: Filling defect is present in the right upper lobe pulmonary arterial tree compatible with pulmonary embolism. No evidence of significant RV strain pattern. No acute aortic finding demonstrated. Moderate peripherally oriented ground-glass opacities are present greatest in the lung bases. No significant pericardial or pleural fluid. No concerning bony finding. IMPRESSION: Right upper lobe pulmonary embolism is present. Moderate peripherally oriented ground-glass lung opacities compatible with COVID-19 infection. ECHO: MEASUREMENTS (cm) DIASTOLIC (NORMALS) SYSTOLIC (NORMALS) IVSd 1.0 (0.6-1.2) LA Diam 2.4 (1.9-4.0) LVEF 64% LVIDd 3.3 (3.5-5.7) LVIDs 2.2 (2.0-3.5) %FS 34% LVPWd 1.3 (0.6-1.2) Ao Diam (2.0-3.7) 2 DIMENSIONAL ASSESSMENT: RIGHT ATRIUM: NORMAL LEFT ATRIUM: NORMAL RIGHT VENTRICLE: NORMAL LEFT VENTRICLE: NORMAL TRICUSPID VALVE: NORMAL MITRAL VALVE: NORMAL PULMONIC VALVE: NORMAL AORTIC VALVE: NORMAL PERICARDIAL EFFUSION: NONE AORTIC ROOT: NORMAL LEFT VENTRICULAR WALL MOTION: NORMAL DOPPLER/COLOR FLOW: MILD TRICUSPID REGURGITATION. COMMENTS: NORMAL LEFT SIZE AND FUNCTION. MILD TRICUSPID REGURGITATION. NORMAL RIGHT VENTRICULAR SYSTOLIC PRESSURE. Follow up CXR: COMPARISON: January 23 FINDINGS: The bilateral pulmonary opacities have partially resolved. Heart is normal size Physical exam: General: Alert, In no apparent distress, Oriented x3 Respiratory: Diminished, Crackles/rales currently on room air. Cardiovascular: Regular rate and rhythm Gastrointestinal: Normal bowel sounds, Soft and benign, Non-distended, No tenderness, No rebound, No guarding Musculoskeletal: No clubbing, No swelling, No tenderness Neurological: Sensation intact, Cranial nerves 3-12 intact; generalized weakness Impression: Acute respiratory failure with hypoxia secondary to right upper lobe pulmonary embolism complicated with bilateral COVID-19 pneumonia BacteremiaPseudomonas Diabetes mellitus type 2 Atrial fibrillation Critical care myopathy Depression with anxiety Plan: Continue with plan of care as mentioned below: 1. Blood pressure still orthostatic. Continue IV fluids. Overall improved. Case discussed with case management. Patient may be able to qualify for inpatient rehab. This will likely occur over the next day. Will discuss with family about plan of care for inpatient rehab. Patient does desire to go home. Will discuss with patient as well. 2. Continue O2 per protocol. Currently on room air. Physical therapy to continue to work with patient. 3. Continue with pulmonology and cardiology recommendations. 4. Repeat blood cultures negative. Continue with Levaquin for total of 14 days. Echo unremarkable. 5. Continue with anticoagulation therapy 6. Recommend skilled placement. Social work to help with this. 7. GI/DVT prophylaxis 8. Currently on digoxin daily and metoprolol for atrial fibrillation. Metoprolol adjusted due to low blood pressure. 9. Continue Zoloft and clonazepam. 10. Dietary consulted to help with daily needs. CODE STATUS: Full code DVT prophylaxis: [facility] [id number] minutes: Consider inpatient rehab versus home with home health. Time Spent Managing Pts Care (In Minutes): 55
[2021-01-31] MEDS: INSULIN -REGULAR HUMAN 50 UNIT/0.5 ML ML SQ SCH ×4 (07:30→20:15)
[2021-01-31] MEDS: INSULIN 70/30 100 UNITS/ML SQ SCH ×2 (08:00→15:49)
[2021-01-31] MEDS: predniSONE 10 MG TAB PO SCH ×2 (08:49→20:16)
[2021-01-31] MEDS: levoFLOXacin 750 MG TAB PO SCH (08:50)
[2021-01-31] MEDS: SERTRALINE HCL 50 MG TAB PO SCH (08:50)
[2021-01-31] MEDS: APIXABAN 5 MG TABLET PO SCH ×2 (08:50→20:16)
[2021-01-31] MEDS: DIGOXIN 0.25 MG TABLET PO SCH (08:50)
[2021-01-31] MEDS: JUVEN PACKET PO SCH ×2 (08:51→20:17)
[2021-01-31] MEDS: GLUCERNA SHAKE 237 ML CAN PO SCH ×3 (08:51→20:17)
[2021-01-31] MEDS: FAMOTIDINE 20 MG/2 ML VIAL IV SCH ×2 (08:51→20:16)
[2021-02-01] MEDS: NA CHLORIDE 0.9% 1,000 ML IV SCH ×3 (03:12→19:59)
[2021-02-01] MEDS: METOPROLOL TAR 25 MG TAB PO SCH (06:00)
--- NOTE | 2021-02-01 06:02 | P.PN ---
Subjective Date of Service: 02/01/21 Chief Complaint: Weak and SOB Subjective: Other (Patient still orthostatic. Poor intake noted. Continue with physical therapy) Physical Examination - Vital Signs Temperature: 97.6 F Blood Pressure: 104/55 Pulse: 70 Respirations: 16 Pulse Ox (%): 93 - Studies Medications List Reviewed: Yes Assessment & Plan Discharge Plan: Other (Inpatient rehab) Plan to discharge in: 48 Hours Physician Review Additional Text: COVID: Positive CT Scan: COMPARISON: Chest For Pe Angio dated 01/14/2021 TECHNIQUE: CT angiogram of the pulmonary arteries was performed with MIP. All CT scans are performed using dose optimization technique as appropriate and may include automated exposure control or mA/KV adjustment according to patient size. FINDINGS: Filling defect is present in the right upper lobe pulmonary arterial tree compatible with pulmonary embolism. No evidence of significant RV strain pattern. No acute aortic finding demonstrated. Moderate peripherally oriented ground-glass opacities are present greatest in the lung bases. No significant pericardial or pleural fluid. No concerning bony finding. IMPRESSION: Right upper lobe pulmonary embolism is present. Moderate peripherally oriented ground-glass lung opacities compatible with COVID-19 infection. ECHO: MEASUREMENTS (cm) DIASTOLIC (NORMALS) SYSTOLIC (NORMALS) IVSd 1.0 (0.6-1.2) LA Diam 2.4 (1.9-4.0) LVEF 64% LVIDd 3.3 (3.5-5.7) LVIDs 2.2 (2.0-3.5) %FS 34% LVPWd 1.3 (0.6-1.2) Ao Diam (2.0-3.7) 2 DIMENSIONAL ASSESSMENT: RIGHT ATRIUM: NORMAL LEFT ATRIUM: NORMAL RIGHT VENTRICLE: NORMAL LEFT VENTRICLE: NORMAL TRICUSPID VALVE: NORMAL MITRAL VALVE: NORMAL PULMONIC VALVE: NORMAL AORTIC VALVE: NORMAL PERICARDIAL EFFUSION: NONE AORTIC ROOT: NORMAL LEFT VENTRICULAR WALL MOTION: NORMAL DOPPLER/COLOR FLOW: MILD TRICUSPID REGURGITATION. COMMENTS: NORMAL LEFT SIZE AND FUNCTION. MILD TRICUSPID REGURGITATION. NORMAL RIGHT VENTRICULAR SYSTOLIC PRESSURE. Follow up CXR: COMPARISON: January 23 FINDINGS: The bilateral pulmonary opacities have partially resolved. Heart is normal size Physical exam: General: Alert, In no apparent distress, Oriented x3 Respiratory: Diminished, Crackles/rales currently on room air. Cardiovascular: Regular rate and rhythm Gastrointestinal: Normal bowel sounds, Soft and benign, Non-distended, No tenderness, No rebound, No guarding Musculoskeletal: No clubbing, No swelling, No tenderness Neurological: Sensation intact, Cranial nerves 3-12 intact; generalized weakness Impression: Acute respiratory failure with hypoxia secondary to right upper lobe pulmonary embolism complicated with bilateral COVID-19 pneumonia BacteremiaPseudomonas Orthostatic hypotension Diabetes mellitus type 2 Atrial fibrillation Critical care myopathy Depression with anxiety Plan: Acute respiratory failure with hypoxia secondary to right upper lobe pulmonary embolism complicated with bilateral COVID-19 pneumonia: Patient remains on room air. Still with poor appetite. Encourage oral intake. Spoke with dietary yesterday. Patient is taking Glucerna. Will discontinue insulin. Will add midodrine to help with blood pressure. Continue with physical therapy. Will recommend inpatient rehab. Will discuss with social work msw. Continue with oral steroid. Continue with supplementation. Continue with vitamins. BacteremiaPseudomonas: Repeat blood cultures negative. Continue with Levaquin for at least 14 days. Orthostatic hypotension: Will add midodrine. Discontinue metoprolol Diabetes mellitus type 2: Hemoglobin A1c well controlled. Patient with poor oral intake. Discontinue insulin therapy. Will change to Metformin which he ta kes normally. Sliding scale in place. Will monitor closely. Atrial fibrillation: Continue digoxin. Metoprolol discontinued. Continue Eliquis for chronic anticoagulation therapy Critical care myopathy: Continue physical therapy Depression with anxiety: Continue Zoloft and Klonopin. CODE STATUS: Full code DVT prophylaxis: De[facility] [id number] minutes: Inpatient rehab Time Spent Managing Pts Care (In Minutes): 55
[2021-02-01] MEDS: SERTRALINE HCL 50 MG TAB PO SCH (07:29)
[2021-02-01] MEDS: levoFLOXacin 750 MG TAB PO SCH (07:29)
[2021-02-01] MEDS: predniSONE 10 MG TAB PO SCH ×2 (07:29→19:58)
[2021-02-01] MEDS: INSULIN -REGULAR HUMAN 50 UNIT/0.5 ML ML SQ SCH ×4 (07:30→21:00)
[2021-02-01] MEDS: DIGOXIN 0.25 MG TABLET PO SCH (07:30)
[2021-02-01] MEDS: APIXABAN 5 MG TABLET PO SCH ×2 (07:30→19:58)
[2021-02-01] MEDS: GLUCERNA SHAKE 237 ML CAN PO SCH ×3 (07:30→19:59)
[2021-02-01] MEDS: FAMOTIDINE 20 MG/2 ML VIAL IV SCH ×2 (07:30→19:58)
[2021-02-01] MEDS: JUVEN PACKET PO SCH ×2 (07:31→19:59)
[2021-02-01] MEDS: INSULIN 70/30 100 UNITS/ML SQ SCH (08:14)
[2021-02-01] MEDS: MIDODRINE HCL 5 MG TABLET PO SCH ×2 (13:18→19:58)
[2021-02-01] MEDS: METFORMIN HCL 500 MG TAB PO SCH (16:12)
--- NOTE | 2021-02-02 06:17 | P.PN ---
Subjective Date of Service: 02/02/21 Chief Complaint: Weak and SOB Subjective: Improving, Doing well Physical Examination - Vital Signs Temperature: 97.0 F Blood Pressure: 112/64 Pulse: 66 Respirations: 16 Pulse Ox (%): 94 - Studies Medications List Reviewed: Yes Assessment & Plan Discharge Plan: Other (Inpatient rehab) Plan to discharge in: 24 Hours Physician Review Additional Text: COVID: Positive CT Scan: COMPARISON: Chest For Pe Angio dated 01/14/2021 TECHNIQUE: CT angiogram of the pulmonary arteries was performed with MIP. All CT scans are performed using dose optimization technique as appropriate and may include automated exposure control or mA/KV adjustment according to patient size. FINDINGS: Filling defect is present in the right upper lobe pulmonary arterial tree compatible with pulmonary embolism. No evidence of significant RV strain pattern. No acute aortic finding demonstrated. Moderate peripherally oriented ground-glass opacities are present greatest in the lung bases. No significant pericardial or pleural fluid. No concerning bony finding. IMPRESSION: Right upper lobe pulmonary embolism is present. Moderate peripherally oriented ground-glass lung opacities compatible with COVID-19 infection. ECHO: MEASUREMENTS (cm) DIASTOLIC (NORMALS) SYSTOLIC (NORMALS) IVSd 1.0 (0.6-1.2) LA Diam 2.4 (1.9-4.0) LVEF 64% LVIDd 3.3 (3.5-5.7) LVIDs 2.2 (2.0-3.5) %FS 34% LVPWd 1.3 (0.6-1.2) Ao Diam (2.0-3.7) 2 DIMENSIONAL ASSESSMENT: RIGHT ATRIUM: NORMAL LEFT ATRIUM: NORMAL RIGHT VENTRICLE: NORMAL LEFT VENTRICLE: NORMAL TRICUSPID VALVE: NORMAL MITRAL VALVE: NORMAL PULMONIC VALVE: NORMAL AORTIC VALVE: NORMAL PERICARDIAL EFFUSION: NONE AORTIC ROOT: NORMAL LEFT VENTRICULAR WALL MOTION: NORMAL DOPPLER/COLOR FLOW: MILD TRICUSPID REGURGITATION. COMMENTS: NORMAL LEFT SIZE AND FUNCTION. MILD TRICUSPID REGURGITATION. NORMAL RIGHT VENTRICULAR SYSTOLIC PRESSURE. Follow up CXR: COMPARISON: January 23 FINDINGS: The bilateral pulmonary opacities have partially resolved. Heart is normal size Physical exam: General: Alert, In no apparent distress, Oriented x3 Respiratory: Diminished, Crackles/rales currently on room air. Cardiovascular: Regular rate and rhythm Gastrointestinal: Normal bowel sounds, Soft and benign, Non-distended, No tenderness, No rebound, No guarding Musculoskeletal: No clubbing, No swelling, No tenderness Neurological: Sensation intact, Cranial nerves 3-12 intact; generalized weakness Impression: Acute respiratory failure with hypoxia secondary to right upper lobe pulmonary embolism complicated with bilateral COVID-19 pneumonia BacteremiaPseudomonas Orthostatic hypotension Diabetes mellitus type 2 Atrial fibrillation Critical care myopathy Depression with anxiety Plan: Acute respiratory failure with hypoxia secondary to right upper lobe pulmonary embolism complicated with bilateral COVID-19 pneumonia: Patient doing well at this time. Will decrease IV fluids. Blood pressure stable on midodrine. Patient is taking Glucerna. Encourage oral intake. Patient agreeable to go to [facility] if accepted. Social work to help in this process. Continue current treatment plan. BacteremiaPseudomonas: Repeat blood cultures negative. Continue with Levaquin for at least 14 days. Orthostatic hypotension: Continue midodrine. Discontinue metoprolol Diabetes mellitus type 2: Hemoglobin A1c well controlled. Patient with poor oral intake. Discontinue insulin therapy. Will change to Metformin which he takes normally. Sliding scale in place. Will monitor closely. Atrial fibrillation: Continue digoxin. Metoprolol discontinued. Continue Eliquis for chronic anticoagulation therapy Critical care myopathy: Continue physical therapy Depression with anxiety: Continue Zoloft and Klonopin. CODE STATUS: Full code DVT prophylaxis: Eliquis [facility] care [email or web address] minutes: Inpatient rehab Time Spent Managing Pts Care (In Minutes): 55
[2021-02-02] MEDS: INSULIN -REGULAR HUMAN 50 UNIT/0.5 ML ML SQ SCH ×4 (07:30→21:00)
[2021-02-02] MEDS: FAMOTIDINE 20 MG/2 ML VIAL IV SCH ×2 (09:58→22:55)
[2021-02-02] MEDS: MIDODRINE HCL 5 MG TABLET PO SCH ×3 (09:58→22:56)
[2021-02-02] MEDS: levoFLOXacin 750 MG TAB PO SCH (10:00)
[2021-02-02] MEDS: predniSONE 10 MG TAB PO SCH ×2 (10:00→22:56)
[2021-02-02] MEDS: METFORMIN HCL 500 MG TAB PO SCH (10:00)
[2021-02-02] MEDS: SERTRALINE HCL 50 MG TAB PO SCH (10:00)
[2021-02-02] MEDS: APIXABAN 5 MG TABLET PO SCH ×2 (10:00→22:56)
[2021-02-02] MEDS: DIGOXIN 0.25 MG TABLET PO SCH (10:00)
[2021-02-02] MEDS: GLUCERNA SHAKE 237 ML CAN PO SCH ×3 (10:01→21:00)
[2021-02-02] MEDS: JUVEN PACKET PO SCH ×2 (10:01→21:00)
[2021-02-02 11:41] VITALS: O2SAT 93
[2021-02-02] MEDS: NA CHLORIDE 0.9% 1,000 ML IV SCH (12:01)
[2021-02-02] MEDS ORDERED: NA CHLORIDE 0.9% 1,000 ML IV SCH (15:07)
[2021-02-02] MEDS ORDERED: METFORMIN HCL 500 MG TAB PO SCH (17:00)
[2021-02-02 17:29] LABS: BUN Blood Urea Nitrogen 11 mg/dL (7-18); Bicarbonate 31 mmol/L (21-32); Glucose Level 230 mg/dL (74-106); Potassium 3.8 mmol/L (3.5-5.1); Sodium Level 136 mmol/L (136-145)
--- NOTE | 2021-02-02 19:59 | P.DS ---
Admission Date: 01/22/21 Discharge Date: 02/02/21 Disposition: TRANSFER TO INPATIENT REHAB Discharge Condition: GOOD Reason for Admission: Weak and SOB Consultations: Dr. Bergeron Procedures: COVID: Positive CT Scan: COMPARISON: Chest For Pe Angio dated 01/14/2021 TECHNIQUE: CT angiogram of the pulmonary arteries was performed with MIP. All CT scans are performed using dose optimization technique as appropriate and may include automated exposure control or mA/KV adjustment according to patient size. FINDINGS: Filling defect is present in the right upper lobe pulmonary arterial tree compatible with pulmonary embolism. No evidence of significant RV strain pattern. No acute aortic finding demonstrated. Moderate peripherally oriented ground-glass opacities are present greatest in the lung bases. No significant pericardial or pleural fluid. No concerning bony finding. IMPRESSION: Right upper lobe pulmonary embolism is present. Moderate peripherally oriented ground-glass lung opacities compatible with COVID-19 infection. ECHO: MEASUREMENTS (cm) DIASTOLIC (NORMALS) SYSTOLIC (NORMALS) IVSd 1.0 (0.6-1.2) LA Diam 2.4 (1.9-4.0) LVEF 64% LVIDd 3.3 (3.5-5.7) LVIDs 2.2 (2.0-3.5) %FS 34% LVPWd 1.3 (0.6-1.2) Ao Diam (2.0-3.7) 2 DIMENSIONAL ASSESSMENT: RIGHT ATRIUM: NORMAL LEFT ATRIUM: NORMAL RIGHT VENTRICLE: NORMAL LEFT VENTRICLE: NORMAL TRICUSPID VALVE: NORMAL MITRAL VALVE: NORMAL PULMONIC VALVE: NORMAL AORTIC VALVE: NORMAL PERICARDIAL EFFUSION: NONE AORTIC ROOT: NORMAL LEFT VENTRICULAR WALL MOTION: NORMAL DOPPLER/COLOR FLOW: MILD TRICUSPID REGURGITATION. COMMENTS: NORMAL LEFT SIZE AND FUNCTION. MILD TRICUSPID REGURGITATION. NORMAL RIGHT VENTRICULAR SYSTOLIC PRESSURE. Follow up CXR: COMPARISON: January 23 FINDINGS: The bilateral pulmonary opacities have partially resolved. Heart is normal size Physical exam: General: Alert, In no apparent distress, Oriented x3 Respiratory: Diminished, Crackles/rales currently on room air. Cardiovascular: Regular rate and rhythm Gastrointestinal: Normal bowel sounds, Soft and benign, Non-distended, No tenderness, No rebound, No guarding Musculoskeletal: No clubbing, No swelling, No tenderness Neurological: Sensation intact, Cranial nerves 3-12 intact; generalized weakness Impression: Acute respiratory failure with hypoxia secondary to right upper lobe pulmonary embolism complicated with bilateral COVID-19 pneumonia BacteremiaPseudomonas Orthostatic hypotension Diabetes mellitus type 2 Atrial fibrillation Critical care myopathy Depression with anxiety Brief History of Present Illness: Patient was admitted for COVID-19 pneumonia, hypoxia, pulmonary embolism. Hospital Course: Impression: Acute respiratory failure with hypoxia secondary to right upper lobe pulmonary embolism complicated with bilateral COVID-19 pneumonia BacteremiaPseudomonas Orthostatic hypotension Diabetes mellitus type 2 Atrial fibrillation Critical care myopathy Depression with anxiety Plan: Acute respiratory failure with hypoxia secondary to right upper lobe pulmonary embolism complicated with bilateral COVID-19 pneumonia: Patient doing well at this time. Will decrease IV fluids. Blood pressure stable on midodrine. Patient is taking Glucerna. Encourage oral intake. Patient agreeable to go to [facility] if accepted. Social work to help in this process. Continue current treatment plan. BacteremiaPseudomonas: Repeat blood cultures negative. Continue with Levaquin for at least 14 days. Orthostatic hypotension: Continue midodrine. Discontinue metoprolol Diabetes mellitus type 2: Hemoglobin A1c well controlled. Patient with poor oral intake. Discontinue insulin therapy. Will change to Metformin which he takes normally. Sliding scale in place. Will monitor closely. Atrial fibrillation: Continue digoxin. Metoprolol discontinued. Continue Eliquis for chronic anticoagulation therapy Critical care myopathy: Continue physical therapy Depression with anxiety: Continue Zoloft and Klonopin. Patient did well throughout his hospitalization, patient was found to have Pseudomonas bacteremia currently on Levaquin initiated oral on 01/29/2021, patient will need total of 14 days. Patient with orthostatic hypotension recommendation to continue midodrine, metoprolol was discontinued, will continue patient's digoxin as well as Eliquis as patient is with history of atrial fibrillation and pulmonary embolism. Patient doing well at this time was approved for inpatient rehab at [facility]. Patient to continue with further plan of care at [facility]. Patient currently on room air, vital signs stable. Vital Signs/Physical Exam: Temp Pulse Resp BP Pulse Ox 97.9 F 76 22 H 133/68 98 02/02/21 16:00 02/02/21 16:00 02/02/21 16:00 02/02/21 16:00 02/02/21 16:00 General: Alert, In no apparent distress, Oriented x3 HEENT: Atraumatic, PERRLA, EOMI Neck: Supple, JVD not distended Respiratory: Clear to auscultation bilaterally, Normal air movement Cardiovascular: Regular rate/rhythm, Normal S1 S2 Gastrointestinal: Normal bowel sounds, No tenderness Musculoskeletal: No tenderness Integumentary: No rashes Neurological: Normal speech, Normal tone, Normal affect Lymphatics: No axilla or inguinal lymphadenopathy Laboratory Data at Discharge: WBC 11.40 K/uL (4.3-10.9) H 01/30/21 10:24 Hgb 13.4 g/dL (13.6-17.9) L 01/30/21 10:24 Hct 38.4 % (39.6-49.0) L 01/30/21 10:24 Plt Count 363 K/uL (152-406) 01/30/21 10:24 PT 30.3 SECONDS (9.5-12.5) H 01/25/21 05:13 INR 2.61 01/25/21 05:13 APTT 29.4 SECONDS (24.3-36.9) 01/23/21 03:50 Sodium 136 mmol/L (136-145) 02/02/21 17:00 Potassium 3.8 mmol/L (3.5-5.1) 02/02/21 17:00 BUN 11 mg/dL (7-18) 02/02/21 17:00 Creatinine 0.61 mg/dL (0.55-1.3) 02/02/21 17:00 Glucose 230 mg/dL (74-106) H 02/02/21 17:00 Phosphorus 2.4 mg/dL (2.5-4.9) L 01/25/21 11:45 Magnesium 2.0 mg/dL (1.8-2.4) 02/02/21 17:00 Total Bilirubin 0.6 mg/dL (0.2-1.0) 01/29/21 04:02 AST 24 U/L (15-37) 01/29/21 04:02 ALT 43 U/L (12-78) 01/29/21 04:02 Alkaline Phosphatase 64 U/L (45-117) 01/29/21 04:02 Home Medications: Gabapentin [Neurontin*] 100 mg PO DAILY 01/24/21 Metformin HCl [Glucophage*] 500 mg PO BID 01/24/21 Apixaban [Eliquis] 10 mg PO BID #70 tablet 01/25/21 Cefdinir [Omnicef] 300 mg PO BID #20 capsule 01/25/21 New Medications: Apixaban [Eliquis] 10 mg PO BID #70 tablet Cefdinir [Omnicef] 300 mg PO BID #20 capsule Physician Discharge Instructions: D/C to [facility] Diet: AHA Activity: Fall precautions Followup: NONE,NONE [Primary Care Provider] - Time spent managing pt's care (in minutes): 30
[2021-02-02 20:40] VITALS: BP 101/51; TEMP 98.2
== END 2021-02-03 00:40 | DRG 177 ==
LOC: ER 07:03 → ERHOLD 15:11 → 3RD-ICU 01-24 03:39 → 4TH 01-28 20:56
PROVIDERS: ADMIT Hospitalist; ATTEND Family Medicine
DX: U07.1 COVID-19 (principal); J12.82 Pneumonia due to coronavirus disease 2019; I26.99 Other pulmonary embolism without acute cor pulmonale; J96.01 Acute respiratory failure with hypoxia; G72.81 Critical illness myopathy; G72.0 Drug-induced myopathy; R78.81 Bacteremia; E11.65 Type 2 diabetes mellitus with hyperglycemia; E86.0 Dehydration; I48.91 Unspecified atrial fibrillation; I95.1 Orthostatic hypotension; F41.8 Other specified anxiety disorders; J43.9 Emphysema, unspecified; B96.5 Pseudomonas (aeruginosa) (mallei) (pseudomallei) as the cause of diseases classified elsewhere; T38.0X5A Adverse effect of glucocorticoids and synthetic analogues, initial encounter; Z79.4 Long term (current) use of insulin; Z87.891 Personal history of nicotine dependence; Z79.01 Long term (current) use of anticoagulants; Z79.890 Hormone replacement therapy; Z79.899 Other long term (current) drug therapy
CPT/HCPCS: 36415; 70450; 71045; 71275; 80048; 80053; 80307; 81003; 81015; 82728; 82947; 83036; 83605; 83735; 83880; 84100; 84145; 84439; 84443; 85025; 85027; 85379; 85610; 85730; 86140; 87040; 87077; 87086; 87088; 87186; 87205; 93005; 93306; 94010; 94640; 96360; 96361; 96372; 97110; 97112; 97116; 97161; 97530; 99285; J0696; J1815; J2270; J2920; J7030; J7050; J7512; Q9967; U0003

== ENCOUNTER 2021-11-02 14:42 | Emergency (ER) | payer OTHER ==
--- OUTSIDE RECORDS SUMMARY | 2021-11-02 14:46 | XMS REPORT | Continuity of Care Document ---
:1950 Author Organization [facility] t Address [address] [place] [address] Care Team Providers Name Role Phone Martha Sher Attending Clinician Unavailable [id number] Attending Clinician Unavailable Davi Pelayo Attending Clinician Unavailable CHANA Attending Clinician Unavailable Chana LOPEZ Attending Clinician Violette Elena MD Attending Clinician [id number] Admitting Clinician Unavailable Davi Pelayo Admitting Clinician Unavailable CHANA Admitting Clinician Unavailable Payers Payer Name Policy Type Policy Number Effective Date Expiration Date S [facility] [id number] MEDICARE A B [id number] 2014 00:00:00 Problems Condition Condition Condition Status Onset Resolution Last Treating Co mments Source Name Details Category Date Date Treatment Clinician Date COVID-19 COVID-19 Disease Active NPI:1 18 virus virus 7- [id number] infection infection 00:00: 00 Allergies, Adverse Reactions, Alerts Allergy Allergy Status Severity Reaction(s) Onset Inactive Treating Comm ents Source Name Type Date Date Clinician NO KNOWN Allergy Active NPI:118 ALLERGIE [id number] S Social History Social Habit Start Date Stop Date Quantity Comments Source History of Cigarette Smoker NPI:[id number] tobacco use Tobacco use and 2021-01-15 2021-01-15 Never used NPI:[id number] exposure 00:00:00 00:00:00 Sex [birth year] At [birth year] NPI:[id number] 00:00:00 00:00:00 Smoking Status Start Date Stop Date Source Current every day smoker 2021-01-15 00:00:00 NPI :[id number] Medications Ordered Filled Start Stop Current Ordering Indication Dosage Frequency Signature Comments Components Source Medication Medication Date Date Medication? Clinician (SIG) Name Name insulin Yes type 2 20U Q.5D Inject 20 NPI :118 glargine 7-20 diabetes Units 766241 7 (LANTUS) 16:42: mellitus subcutaneo 100 unit/mL 13 usly 2 injection (two) times daily Use as directed . gabapentin Yes 300mg Q.34006792 Take 300 NPI:118 (NEURONTIN) 7-20 [id number] mg by 4 [id number] 300 MG 16:42: 3D mouth 3 capsule 13 (three) times daily . insulin Yes type 2 20U Q.5D Inject 20 NPI :118 glargine 7-20 diabetes Units 043537 7 (LANTUS) 16:42: mellitus subcutaneo 100 unit/mL 13 usly 2 injection (two) times daily Use as directed . gabapentin Yes 300mg Q.02348183 Take 300 NPI:118 (NEURONTIN) 7-20 [id number] mg by 4 [id number] 300 MG 16:42: 3D mouth 3 capsule 13 (three) times daily . famotidine 2020- No 20mg Take 1 NPI: 118 (PEPCID) 20 7-20 07-30 tablet (20 4 476340 MG tablet 00:00: 23:59 mg total) 00 :00 by mouth every 12 (twelve) hours for 10 days. famotidine 2020- No 20mg Take 1 NPI: 118 (PEPCID) 20 7-20 07-30 tablet (20 4 299964 MG tablet 00:00: 23:59 mg total) 00 :00 by mouth every 12 (twelve) hours for 10 days. dexAMETHaso 2020- No 6mg Take 1 NPI :118 ne 01-16-28 tablet (6 [id number] (DECADRON) 00:00: 23:59 mg total) 6 MG tablet 00 :00 by mouth daily with breakfast for 8 days. dexAMETHaso 2020- No 6mg Take 1 NPI :118 ne 01-16-28 tablet (6 [id number] (DECADRON) 00:00: 23:59 mg total) 6 MG tablet 00 :00 by mouth daily with breakfast for 8 days. atorvastati Yes 1 tablet INFORMATION TECHNOLOGY TECHNICIAN I:118 n (Lipitor) 3-29 Orally 592972 7 10 MG 00:00: Once a day tablet 00 for 90 days insulin Yes Inject 10 NPI:1 18 degludec 3-29 units [id number] (Tresiba 00:00: Subcutaneo FlexTouch 00 us once a U-200) 200 day for 90 unit/mL (3 days mL) InPn levothyroxi Yes 1 tablet INFORMATION TECHNOLOGY TECHNICIAN I:118 ne 3-29 in the 9371772 (SYNTHROID, 00:00: morning on LEVOTHROID) 00 an empty 25 MCG stomach tablet Orally Once a day for 90 days atorvastati Yes 1 tablet INFORMATION TECHNOLOGY TECHNICIAN I:118 n (Lipitor) 3-29 Orally 218432 7 10 MG 00:00: Once a day tablet 00 for 90 days insulin Yes Inject 10 NPI:1 18 degludec 3-29 units [id number] (Tresiba 00:00: Subcutaneo FlexTouch 00 us once a U-200) 200 day for 90 unit/mL (3 days mL) InPn levothyroxi Yes 1 tablet INFORMATION TECHNOLOGY TECHNICIAN I:118 ne 3-29 in the 3603037 (SYNTHROID, 00:00: morning on LEVOTHROID) 00 an empty 25 MCG stomach tablet Orally Once a day for 90 days Vital Signs Vital Name Observation Time Observation Value Comments Source HEIGHT 2021-01-15 04:24:00 177.8 cm WEIGHT 2021-01-15 04:24:00 78.019 kg HEIGHT 2021-01-15 04:24:00 177.8 cm WEIGHT 2021-01-15 04:24:00 78.019 kg Systolic blood pressure 2021-01-16 11:14:00 108 mm[Hg] Diastolic blood 2021-01-16 11:14:00 66 mm[Hg] NPI:1 [id number] pressure Heart rate 2021-01-16 11:14:00 61 /min NPI:1184 [id number] Body temperature 2021-01-16 11:14:00 35 Anyi Respiratory rate 2021-01-16 11:14:00 19 /min Oxygen saturation in 2021-01-16 11:14:00 96 /min Arterial blood by Pulse oximetry Body height 2021-01-15 04:24:00 177.8 cm NPI:1184 [id number] Body weight 2021-01-15 04:24:00 78.019 kg NPI:1184 [id number] BMI 2021-01-15 04:24:00 24.68 kg/m2 NPI:1184 [id number] Procedures Procedure Date / Time Performed Performing Clinician Sour e POCT-GLUCOSE METER 2021-01-16 11:12:00 Tip Zayas NPI:[id number] POCT-GLUCOSE METER 2021-01-16 06:24:00 Tip Zayas NPI:[id number] CBC W/PLT COUNT & AUTO 2021-01-16 04:29:00 Sky Jackson NPI:1 [id number] DIFFERENTIAL BASIC METABOLIC PANEL (7) 2021-01-16 04:29:00 Sky Jackson INFORMATION TECHNOLOGY TECHNICIAN I:[id number] C-REACTIVE PROTEIN 2021-01-16 04:29:00 Sky Jackson NPI:[id number] PROCALCITONIN 2021-01-16 04:29:00 Shahid Gonzales NPI:1184 [id number] D-DIMER 2021-01-16 04:29:00 Shahid Gonzales NPI:1184 [id number] CBC W/PLT COUNT & AUTO 2021-01-16 04:29:00 Sky Jackson NPI:1 [id number] DIFFERENTIAL XR CHEST 1 VIEW PORTABLE / 2021-01-16 03:59:00 JanetEligioShahiddilan cuellar BEDSIDE POCT-GLUCOSE METER 2021-01-15 16:39:00 Tip Zayas NPI:[id number] SARS-COV2/RT-PCR ([facility] & 2021-01-15 11:38:00 Janet Shahid Zarate REF LABS) CBC W/PLT COUNT & AUTO 2021-01-15 11:38:00 Sky Jackson NPI:1 [id number] DIFFERENTIAL C-REACTIVE PROTEIN 2021-01-15 11:38:00 Sky Jackson NPI:[id number] PROCALCITONIN 2021-01-15 11:38:00 Shahid Gonzales NPI:1184 [id number] D-DIMER 2021-01-15 11:38:00 Shahid Gonzales NPI:1184 [id number] COMPREHENSIVE METABOLIC 2021-01-15 11:38:00 Shahid Gonzales PANEL CBC W/PLT COUNT & AUTO 2021-01-15 11:38:00 Sky Jackson NPI:1 [id number] DIFFERENTIAL (MANUAL DIFFERENTIAL) 2021-01-15 11:38:00 Sky Jackson NPI:11 [id number] XR CHEST 1 VIEW PORTABLE / 2021-01-15 10:06:00 Shahid Gonzales BEDSIDE POCT-GLUCOSE METER 2021-01-15 05:14:00 Tip Zayas NPI:[id number] REPORT OF PROCEDURE - 2021-01-15 00:00:00 Provider, Default ENDOSCOPY SCAN Scanning Plan of Care Planned Activity Planned Date Details Comments Source Future Scheduled 2021-02-28 INFLUENZA VACCINE (#1) N PI:[id number] Test 00:00:00 [code = INFLUENZA VACCINE (#1)] Future Scheduled 2021-02-28 INFLUENZA VACCINE (#1) N PI:[id number] Test 00:00:00 [code = INFLUENZA VACCINE (#1)] Future Scheduled 2020-06-30 DEPRESSION SCREENING NPI :[id number] Test 00:00:00 (12+) [code = DEPRESSION SCREENING (12+)] Future Scheduled 2020-06-30 FALLS RISK SCREENING NPI :[id number] Test 00:00:00 [code = FALLS RISK SCREENING] Future Scheduled 2020-06-30 DEPRESSION SCREENING NPI :[id number] Test 00:00:00 (12+) [code = DEPRESSION SCREENING (12+)] Future Scheduled 2020-06-30 FALLS RISK SCREENING NPI :[id number] Test 00:00:00 [code = FALLS RISK SCREENING] Future Scheduled 2015-03-01 MEDICARE ANNUAL NPI:[id number] Test 00:00:00 WELLNESS (YEAR 2 or FIRST YEAR if no IPPE) [code = MEDICARE ANNUAL WELLNESS (YEAR 2 or FIRST YEAR if no IPPE)] Future Scheduled 2015-03-01 MEDICARE ANNUAL NPI:[id number] Test 00:00:00 WELLNESS (YEAR 2 or FIRST YEAR if no IPPE) [code = MEDICARE ANNUAL WELLNESS (YEAR 2 or FIRST YEAR if no IPPE)] Future Scheduled 2014 PNEUMOCOCCAL 65+ YRS (1 Test 00:00:00 of 1 - JICK75_Ybwlvdg PCV13) [code = PNEUMOCOCCAL 65+ YRS (1 of 1 - DLVM16_Xxvjzhl PCV13)] Future Scheduled 2014 PNEUMOCOCCAL 65+ YRS (1 Test 00:00:00 of 1 - VGAJ44_Ikwjcdo PCV13) [code = PNEUMOCOCCAL 65+ YRS (1 of 1 - CNGY02_Oqpyisp PCV13)] Future Scheduled 1999 SHINGLES VACCINES (1 of Test 00:00:00 2) [code = SHINGLES VACCINES (1 of 2)] Future Scheduled 1999 SHINGLES VACCINES (1 of Test 00:00:00 2) [code = SHINGLES VACCINES (1 of 2)] Future Scheduled 1968 DTAP/TDAP/TD VACCINES INFORMATION TECHNOLOGY TECHNICIAN I:[id number] Test 00:00:00 (1 - Tdap) [code = DTAP/TDAP/TD VACCINES (1 - Tdap)] Future Scheduled 1968 DTAP/TDAP/TD VACCINES INFORMATION TECHNOLOGY TECHNICIAN I:[id number] Test 00:00:00 (1 - Tdap) [code = DTAP/TDAP/TD VACCINES (1 - Tdap)] Future Scheduled 1967 HEPATITIS C SCREENING INFORMATION TECHNOLOGY TECHNICIAN I:[id number] Test 00:00:00 [code = HEPATITIS C SCREENING] Future Scheduled 1967 HEPATITIS C SCREENING INFORMATION TECHNOLOGY TECHNICIAN I:[id number] Test 00:00:00 [code = HEPATITIS C SCREENING] Future Scheduled 1961 COVID-19 VACCINE (1) NPI :[id number] Test 00:00:00 [code = COVID-19 VACCINE (1)] Future Scheduled 1961 COVID-19 VACCINE (1) NPI :[id number] Test 00:00:00 [code = COVID-19 VACCINE (1)] Future Scheduled 1950 Screening for malignant Test 00:00:00 neoplasm of colon (procedure) [code = 143678489] Future Scheduled 1950 Screening for malignant Test 00:00:00 neoplasm of colon (procedure) [code = 361650430] Encounters Start End Encounter Admission Attending Care Care Encounter Source Date/Time Date/Time Type Type Clinicians Facility Department ID 2021-08-27 Outpatient Sher, STLMLC STLC [id number] NPI:174 13:43:01 Yandel [id number] 2021-07-26 Outpatient 3 [id number] ENCPL REF [id number] ENCPL 12:39:23 0806 2021-07-25 Outpatient Sher, STLMLC STLC [id number] NPI:174 14:40:21 Yanedl [id number] 2021-07-25 Outpatient Sher, STLMLC STLMLC [id number] NPI:174 14:17:42 Yandel [id number] 2021-07-25 Outpatient Sher, STLMLC STLMLC [id number] NPI:174 14:02:16 Yandel [id number] 2021-07-25 Outpatient Sher, STLMLC STLMLC [id number] NPI:174 13:53:22 Yandel [id number] 2021-07-25 Outpatient Sher, STLMLC STLMLC [id number] NPI:174 13:16:34 Yandel [id number] 2021-07-25 Outpatient Sher, STLMLC STLMLC [id number] NPI:174 12:45:34 Yandel [id number] [id number] 2021-07-25 Outpatient Sher, STLMLC STLMLC [id number] NPI:174 12:44:58 Yandel [id number] 2021-07-25 Outpatient Sher, STLMLC STLMLC [id number] NPI:174 12:40:54 Yandel [id number] 2021-07-25 Outpatient Sher, STLMLC STLMLC [id number] NPI:174 12:40:12 Yandel [id number] 2021-07-25 Outpatient Sher, STLMLC STLMLC [id number] NPI:174 12:34:08 Yandel [id number] 2021-02-03 Inpatient 3 Pierce, ENCPL PUL [id number] ENCPL 01:50:00 Davi 0807 2021-01-15 Inpatient ER TIP ZAYAS [facility] [id number] [facility] 03:56:00 2021-10-24 2021-10-24 ambulatory STLMLC STLMLC [id number] NPI:174 00:00:00 00:00:00 [id number] 2021-10-09 2021-10-09 ambulatory STLMLC STLMLC [id number] NPI:174 00:00:00 00:00:00 [id number] 2021-08-06 2021-08-06 ambulatory STLMLC STLMLC [id number] NPI:174 00:00:00 00:00:00 [id number] 2021-07-24 2021-07-24 ambulatory STLMLC STLMLC [id number] NPI:174 00:00:00 00:00:00 [id number] 2021-07-24 2021-07-24 ambulatory STLMLC STLMLC [id number] NPI:174 00:00:00 00:00:00 [id number] 2021-06-25 2021-06-25 ambulatory STLMLC STLMLC [id number] NPI:174 00:00:00 00:00:00 [id number] 2021-06-11 2021-06-11 ambulatory STLMLC STLMLC [id number] NPI:174 00:00:00 00:00:00 [id number] 2021-05-23 2021-05-23 ambulatory STLMLC STLMLC [id number] NPI:174 00:00:00 00:00:00 [id number] 2021-05-23 2021-05-23 ambulatory STLMLC STLMLC [id number] NPI:174 00:00:00 00:00:00 [id number] 9 2021-05-14 2021-05-14 ambulatory STLMLC STLMLC [id number] NPI:174 00:00:00 00:00:00 [id number] 2021-04-05 2021-04-05 Outpatient STLMLC STLMLC [id number] NPI:174 00:00:00 00:00:00 [id number] 2021-03-23 2021-03-23 Outpatient STLMLC STLMLC [id number] NPI:174 00:00:00 00:00:00 [id number] 9 2021-03-21 2021-03-21 Outpatient STLMLC STLMLC [id number] NPI:174 00:00:00 00:00:00 [id number] 2021-03-01 2021-03-01 Outpatient STLMLC STLMLC [id number] NPI:174 00:00:00 00:00:00 [id number] 2021-02-22 2021-02-22 Outpatient STLMLC STLMLC [id number] NPI:174 00:00:00 00:00:00 [id number] 2021-02-20 2021-02-20 Outpatient STLMLC STLMLC [id number] NPI:174 00:00:00 00:00:00 [id number] 2021-01-25 2021-01-25 Outpatient STLMLC STLMLC [id number] NPI:174 00:00:00 00:00:00 [id number] 2021-01-15 2021-01-16 [facility] Tip Zayas STC [id number] NPI:118 03:56:00 16:42:00 Angelia Gatica [id number] 2021-01-15 2021-01-15 Travel [facility] [id number] NPI:118 00:00:00 00:00:00 [id number] 2020-12-20 2020-12-20 Outpatient STLMLC STLMLC [id number] NPI:174 00:00:00 00:00:00 [id number] 2020-11-18 2020-11-18 Outpatient STLMLC STLMLC [id number] NPI:174 00:00:00 00:00:00 [id number] 9 2020-10-24 2020-10-24 Outpatient STLMLC STLMLC [id number] NPI:174 00:00:00 00:00:00 [id number] 2020-09-25 2020-09-25 Outpatient STLMLC STLMLC [id number] NPI:174 00:00:00 00:00:00 [id number] 9 2020-09-25 2020-09-25 Outpatient STLMLC STLMLC [id number] NPI:174 00:00:00 00:00:00 [id number] 2020-09-12 2020-09-12 Outpatient STLMLC STLMLC [id number] NPI:174 00:00:00 00:00:00 [id number] 2020-08-25 2020-08-25 Outpatient STLMLC STLMLC [id number] NPI:174 00:00:00 00:00:00 [id number] Results Test Description Test Time Test Comments Results Result Comments Source POC-Glucose meter 2021-01-16 11:23:00 Test Item Value Reference Range Interpretation Comme nts POC-Glucose Meter (test code = 257 mg/dL 70-110 H : TESTED AT [facility] [address] [place] [address]: Marshmallow Runner/Techni junito ID = [id number] for Rodríguez, Loyda Lab Interpretation (test code = Abnormal 75012-3) NPI:[id number]-Bvbkjgr [id number] 11:23:00 Test Item Value Reference Range Interpretation Comments POC-Glucose Meter (test 257 mg/dL 70-110 H : TE STED AT [facility] code = 1538) [facility] [place] [place] [address] [address] [place] [address]: Marshmallow Runner/Techni junito ID = [id number] for Rodríguez, Loyda Lab Interpretation (test Abnormal code = 90540-0) NPI:[id number]-[id number] [id number] 11:23:00 Test Item Value Reference Range Interpretation Comments POC-GLUCOSE METER 257 mg/dL 70-110 H : TESTED A T [facility] (BEAKER) (test code [address], = 1538) [facility] [address]: Marshmallow Runner/Techni junito ID = [id number] for Loyda Ramirez [id number] 09:19:00 Test Item Value Reference Range Interpretation Comments Procalcitonin (test <0.05 See_Comment [Automa delaney code = 37555-0) message] The system which generated this result transmit delaney reference range : <0.05 ng/mL. Th e reference range was not used to interpret this result as normal/abnormal . STARR (test code = STARR) SEPSIS RISK (ng/mL)Low: 0.05-0.50Inter mediate: 0.51-2.00High: >=2.01 Lab Interpretation Normal (test code = 12684-7) NPI:[id number] 09:19:00 Test Item Value Reference Range Interpretation Comments Procalcitonin (test <0.05 See_Comment [Automa delaney code = 89103-0) message] The system which generated this result transmit delaney reference range : <0.05 ng/mL. Th e reference range was not used to interpret this result as normal/abnormal . STARR (test code = STARR) SEPSIS RISK (ng/mL)Low: 0.05-0.50Inter mediate: 0.51-2.00High: >=2.01 Lab Interpretation Normal (test code = 93125-1) NPI:[id number] 09:19:00 Test Item Value Reference Range Interpretation Comments PROCALCITONIN (BEAKER) (test code = < ng/mL <0.05 3036) SEPSIS RISK (ng/mL)Low: 0.05-0.50Intermediate: 0.51-2.00High: >=2.01RAD, CHEST, 1 VIEW, NON [id number] 08:06:00Reason for exam:- >PneumoniaShould this be performed at the bedside?->Yes [facility] 1950 Sex: MFINAL REPORT Chest AP portable erect Comparison exam: 01/15/2021 Hist ory provided: Pneumonia Heart size normal. Lungs remain grossly clear and vascularity normal. Signed: Baldemar Montalvo Verified Date/Time: 01/16/2021 08:06:30 Reading Location: [facility] Diagnostic Imaging Reading Room [place] [address].12 08 :06 AMPOCT-GLUCOSE [id number] 06:36:00 Test Item Value Reference Range Interpretation Comments POC-GLUCOSE METER 254 mg/dL 70-110 H : TESTED A T [facility] (BEAKER) (test code [address], = 1538) [facility] [address]: Marshmallow Runner/Techni junito ID = [id number] for [place] ie[facility] with [facility] count + automated [id number] 05:37:00 Test Item Value Reference Range Interpretation Comments WBC (test code = 7.5 See_Comment [Automated message] 6690-2) The system [employer] generated this result transmitted ref erence range: 4.0 - 10 .0 K/L. The refe rence range was not u sed to interpret this result as normal/abnor mal. RBC (test code = 789-8) 4.49 See_Comment [Au tomated message] The system [employer] generated this result transmitted ref erence range: 4.20 - 5 .80 M/L. The refe rence range was not u sed to interpret this result as normal/abnor mal. MCHC (test code = 35.0 See_Comment [Automate d message] 786-4) The system [employer] generated this result transmitted ref erence range: 32.0 - 3 6.0 GM/DL. The refe rence range was not u sed to interpret this result as normal/abnor mal. Hematocrit (test code = 40.9 % 36.0-50.0 4544-3) MCV (test code = 787-2) 91.1 fL 82.0-99.0 MCH (test code = 785-6) 31.8 pg 27.0-33.0 RDW (test code = 788-0) 12.1 % 12.0-15.0 Platelets (test code = 266 See_Comment [Aut omated message] 777-3) The system [employer] generated this result transmitted ref erence range: 150 - 43 0 K/CU MM. The referen ce range was not used to interpret this result as normal/abnor mal. MPV (test code = 10.2 fL 6.0-11.5 19295-5) nRBC (test code = 413) 0 See_Comment [Aut omated message] The system [employer] generated this result transmitted ref erence range: [...] See_Comment [Aut omated message] 670) The system [employer] generated this result transmitted ref erence range: 1.80 - 8 .00 K/L. The refe rence range was not u sed to interpret this result as normal/abnor mal. # Lymphs (test code = 1.58 See_Comment [Auto mated message] 414) The system [employer] generated this result transmitted ref erence range: 1.48 - 4 .50 K/L. The refe rence range was not u sed to interpret this result as normal/abnor mal. # Monos (test code = 0.43 See_Comment [Autom ated message] 415) The system [employer] generated this result transmitted ref erence range: 0.00 - 1 .30 K/L. The refe rence range was not u sed to interpret this result as normal/abnor mal. # Eos (test code = 416) 0.00 See_Comment [Au tomated message] The system [employer] generated this result transmitted ref erence range: 0.00 - 0 .50 K/L. The refe rence range was not u sed to interpret this result as normal/abnor mal. # Baso (test code = 0.00 See_Comment [Automa delaney message] 417) The system [employer] generated this result transmitted ref erence range: 0.00 - 0 .20 K/L. The refe rence range was not u sed to interpret this result as normal/abnor mal. Immature 0 % 0-0 Granulocytes-Relative (test code = 2801) NPI:[id number] with platelet count + automated [id number] 05:37:00 Test Item Value Reference Range Interpretation Comments WBC (test code = 7.5 See_Comment [Automated message] 6690-2) The system [employer] generated this result transmitted ref erence range: 4.0 - 10 .0 K/L. The refe rence range was not u sed to interpret this result as normal/abnor mal. RBC (test code = 789-8) 4.49 See_Comment [Au tomated message] The system [employer] generated this result transmitted ref erence range: 4.20 - 5 .80 M/L. The refe rence range was not u sed to interpret this result as normal/abnor mal. MCHC (test code = 35.0 See_Comment [Automate d message] 786-4) The system [employer] generated this result transmitted ref erence range: 32.0 - 3 6.0 GM/DL. The refe rence range was not u sed to interpret this result as normal/abnor mal. Hematocrit (test code = 40.9 % 36.0-50.0 4544-3) MCV (test code = 787-2) 91.1 fL 82.0-99.0 MCH (test code = 785-6) 31.8 pg 27.0-33.0 RDW (test code = 788-0) 12.1 % 12.0-15.0 Platelets (test code = 266 See_Comment [Aut omated message] 777-3) The system [employer] generated this result transmitted ref erence range: 150 - 43 0 K/CU MM. The referen ce range was not used to interpret this result as normal/abnor mal. MPV (test code = 10.2 fL 6.0-11.5 18810-7) nRBC (test code = 413) 0 See_Comment [Aut omated message] The system [employer] generated this result transmitted ref erence range: [...] See_Comment [Aut omated message] 670) The system [employer] generated this result transmitted ref erence range: 1.80 - 8 .00 K/L. The refe rence range was not u sed to interpret this result as normal/abnor mal. # Lymphs (test code = 1.58 See_Comment [Auto mated message] 414) The system [employer] generated this result transmitted ref erence range: 1.48 - 4 .50 K/L. The refe rence range was not u sed to interpret this result as normal/abnor mal. # Monos (test code = 0.43 See_Comment [Autom ated message] 415) The system [employer] generated this result transmitted ref erence range: 0.00 - 1 .30 K/L. The refe rence range was not u sed to interpret this result as normal/abnor mal. # Eos (test code = 416) 0.00 See_Comment [Au tomated message] The system [employer] generated this result transmitted ref erence range: 0.00 - 0 .50 K/L. The refe rence range was not u sed to interpret this result as normal/abnor mal. # Baso (test code = 0.00 See_Comment [Automa delaney message] 417) The system [employer] generated this result transmitted ref erence range: 0.00 - 0 .20 K/L. The refe rence range was not u sed to interpret this result as normal/abnor mal. Immature 0 % 0-0 Granulocytes-Relative (test code = 2802) NPI:[id number] W/PLT COUNT & AUTO [id number] 05:37:00 Test Item Value Reference Range Interpretation [...] PERCENT (BEAKER) (test code = 2801) C-Reactive [id number] 05:31:00 Test Item Value Reference Range Interpretation Comments CRP (test code = 676) 3.57 mg/dL 0.00-1.00 H STARR (test code = STARR) Marshmallow Runner ID - Kemi T Lab Interpretation (test Abnormal code = 61255-0) NPI:[id number]-Ipfznyvn [id number] 05:31:00 Test Item Value Reference Range Interpretation Comments CRP (test code = 676) 3.57 mg/dL 0.00-1.00 H STARR (test code = STARR) Marshmallow Runner ID - Kemi T Lab Interpretation (test Abnormal code = 12659-3) NPI:[id number] 05:31:00 Test Item Value Reference Range Interpretation Comments C-REACTIVE PROTEIN (BEAKER) (test 3.57 mg/dL 0.00-1.00 H code = 676) Marshmallow Runner ID - Kemi TBasic Metabolic [id number] 05:29:00 Test Item Value Reference Range Interpretation Comments Sodium (test code = 137 meq/L 184-368 7800-2) Potassium (test code = 3.8 meq/L 3.6-5.5 2823-3) Chloride (test code = 101 meq/L 98-106 5-0) CO2 (test code = 25 meq/L 2027-9) BUN (test code = 25 mg/dL 04-24 3094-0) Creatinine (test code 0.74 mg/dL 0.50-1.20 = 2160-0) Glucose (test code = 273 mg/dL 70-110 H 2345-7) Calcium (test code = 8.2 mg/dL 8.5-10.5 L 57070-3) EGFR (test code = 104 mL/min/1.73 [place] [address]-8) NOT ACCURATE CREATININE CLEARANCE IN PREDICTING GLOMERULAR FILTRATION RATE . ESTIMATED GFR I S NOT APPLICABLE FOR DIALYSIS PATIENTS. STARR (test code = STARR) [employer] [facility] Interpretation Abnormal (test code = 98195-2) NPI:[id number] Metabolic [id number] 05:29:00 Test Item Value Reference Range Interpretation Comments Sodium (test code = 137 meq/L 248-222 7734-2) Potassium (test code = 3.8 meq/L 3.6-5.5 2823-3) Chloride (test code = 101 meq/L 98-106 2075-0) CO2 (test code = 25 meq/L 8-9) BUN (test code = 25 mg/dL - 3094-0) Creatinine (test code 0.74 mg/dL 0.50-1.20 = 2160-0) Glucose (test code = 273 mg/dL 70-110 H 2345-7) Calcium (test code = 8.2 mg/dL 8.5-10.5 L 98612-4) EGFR (test code = 104 mL/min/1.[place] [address]-1) NOT ACCURATE CREATININE CLEARANCE IN PREDICTING GLOMERULAR FILTRATION RATE . ESTIMATED GFR I S NOT APPLICABLE FOR DIALYSIS PATIENTS. STARR (test code = STARR) [employer] ID [facility] Interpretation Abnormal (test code = 14956-8) NPI:[id number] METABOLIC [id number] 05:29:00 Test Item Value Reference Range Interpretation Comments SODIUM (BEAKER) 137 meq/L 135-148 (test code = 381) POTASSIUM (BEAKER) 3.8 meq/L 3.6-5.5 (test code = 379) CHLORIDE (BEAKER) 101 meq/L 98-106 (test code = 382) CO2 (BEAKER) (test 25 meq/L - code = 355) BLOOD UREA NITROGEN 25 [...] S NOT APPLICABLE FOR DIALYSIS PATIEN TS. Marshmallow Runner ID - Kemi [id number] 05:19:00 Test Item Value Reference Range Interpretation Comments D-Dimer, Quant (test 0.51 See_Comment H Final I nformation code = 56878-8) (Auto Output ) [Automated message] The system which generated this result transmitted reference range : <0.50 MG/L FEU. The reference range was not used to interpr et this result as normal/abnormal . STARR (test code = REGARDING D-DIMER STARR) RESULTS: The 98% NPV (Negative Predictive Value) for DVT/PE exclusion is 0.50 mg/L FEU as suggested by the voice systems engineer and as approved by the FDA. Lab Interpretation Abnormal (test code = 52027-9) NPI:[id number] 05:19:00 Test Item Value Reference Range Interpretation Comments D-Dimer, Quant (test 0.51 See_Comment H Final I nformation code = 83381-1) (Auto Output ) [Automated message] The system which generated this result transmitted reference range : <0.50 MG/L FEU. The reference range was not used to interpr et this result as normal/abnormal . STARR (test code = REGARDING D-DIMER STARR) RESULTS: The 98% NPV (Negative Predictive Value) for DVT/PE exclusion is 0.50 mg/L FEU as suggested by the voice systems engineer and as approved by the FDA. Lab Interpretation Abnormal (test code = 84342-7) NPI:[id number] 05:19:00 Test Item Value Reference Range Interpretation Comments D-DIMER QUANTITATIVE 0.51 MG/L FEU <0.50 H Final Information (BEAKER) (test code = (Auto Output) 671) REGARDING D-DIMER RESULTS: The 98% NPV (Negative Predictive Value) for DVT/PE exclusion is 0.50 mg/LFEU as suggested by the voice systems engineer and as approved by the FDA.[id number] 17:13:00 Test Item Value Reference Range Interpretation Comments PROCALCITONIN (BEAKER) (test code = < ng/mL <0.05 3036) SEPSIS RISK (ng/mL)Low: 0.05-0.50Intermediate: 0.51-2.00High: >=2.01POCT-GLUCOSE [id number] 16:51:00 Test Item Value Reference Range Interpretation Comments POC-GLUCOSE METER 223 mg/dL 70-110 H : TESTED A T [facility] (BEAKER) (test code WILFREDOWOO Ir[address], = 1538) [place] [id number] 0: Marshmallow Runner/Techni junito ID = [id number] for Stew art, Carmen SARS-CoV2/RT-PCR ([facility])2021-01-15 12:54:00 Test Item Value Reference Range Interpretation Comments SARS-COV2/RT-PCR Positive Negative AA The SARS-Co V-2 (test code = target nucleic 33707-9) acids are detected in this specimen. STARR [...] the Act. Fact Sheet for Healthcare Providers:https://www .Crackle/Document s/Xpert%20Xpress%20SA RS%20CoV-2/Fact%20She ets/302-3902%20SARS-C OV-2%20HEALTHCARE%20P ROVIDERS%20FACT%20SHE ET.pdf Fact Sheet for Healthcare Patients:https://www. Crackle/Documents /Xpert%20Xpress%20SAR S%20Cov-2/Fact%20Shee ts/302-3801%20SARS-CO V-2%20PATIENT%20FACT% 20SHEET.pdf Lab Interpretation Abnormal (test code = 69723-5) NPI:[id number]-SyE0/RT-PCR ([facility])2021-01-15 12:54:00 Test Item Value Reference Range Interpretation Comments SARS-COV2/RT-PCR Positive Negative AA The SARS-Co V-2 (test code = target nucleic 76999-3) acids are detected in this specimen. STARR [...] SARS-CoV-2/Flu/RSV by their healthcare provider. Results from [facility] Xpert Xpress SARS-CoV-2/Flu/RSV test should be correlated [...] the Act. Fact Sheet for Healthcare Providers:https://www .Crackle/Document s/Xpert%20Xpress%20SA RS%20CoV-2/Fact%20She ets/302-3902%20SARS-C OV-2%20HEALTHCARE%20P ROVIDERS%20FACT%20SHE ET.pdf Fact Sheet for Healthcare Patients:https://www. Crackle/Documents /Xpert%20Xpress%20SAR S%20Cov-2/Fact%20Shee ts/302-3801%20SARS-CO V-2%20PATIENT%20FACT% 20SHEET.pdf Lab Interpretation Abnormal (test code = 31946-2) NPI:[id number]-[id number]/RT-PCR ([facility])2021-01-15 12:54:00 Test Item Value Reference Range Interpretation Comments SARS-COV2/RT-PCR Positive Negative AA The SARS-Co V-2 target (test code = 2707586) nuclei c acids are detected in thi [...] of the Act.Fact Sheet for Healthcare Providers :https://www.Crackle/Documents/Xpert%20Xpress%20SARS%20CoV-2/Fact%20Sheets/3 023902%05SNQV-MWP-9%20HEALTHCARE%20PROVIDERS%20FACT%20SHEET.pdfFact Sheet for Healthcare Patients:https://www.Shoot it!.eCareer /Documents/Xpert%20Xpress%20SARS%20Cov-2/Fact%20Sheets/302-3801%50ELKL-ATY-7%20P ATIENT%20FACT%20SHEET.pdfManual [id number] 12:19:00 Test Item Value Reference Range Interpretation [...] utomated message] code = 1365) The system [employer] generated this result transmitted ref erence range: 1.80 - 8 .00 K/L. The refe rence range was not u sed to interpret this result as normal/abnor mal. # Lymphs (manual) (test 1.06 See_Comment L [Au tomated message] code = 1366) The system [employer] generated this result transmitted ref erence range: 1.48 - 4 .50 K/L. The refe rence range was not u sed to interpret this result as normal/abnor mal. # Monos (manual) (test 0.32 See_Comment [Aut omated message] code = 1367) The system [employer] generated this result transmitted ref erence range: 0.00 - 1 .30 K/L. The refe rence range was not u sed to interpret this result as normal/abnor mal. # Eos (manual) (test 0.11 See_Comment [Autom ated message] code = 1368) The system [employer] generated this result transmitted ref erence range: 0.00 - 0 .50 K/L. The refe rence range was not u sed to interpret this result as normal/abnor mal. # Bands (manual) (test 0.5 See_Comment [Aut omated message] code = 1349) The system [employer] generated this result transmitted ref erence range: [...] 762) Lab Interpretation (test Abnormal code = 78597-7) NPI:[id number] [id number] 12:19:00 Test Item Value Reference Range Interpretation [...] utomated message] code = 1365) The system [employer] generated this result transmitted ref erence range: 1.80 - 8 .00 K/L. The refe rence range was not u sed to interpret this result as normal/abnor mal. # Lymphs (manual) (test 1.06 See_Comment L [Au tomated message] code = 1366) The system [employer] generated this result transmitted ref erence range: 1.48 - 4 .50 K/L. The refe rence range was not u sed to interpret this result as normal/abnor mal. # Monos (manual) (test 0.32 See_Comment [Aut omated message] code = 1367) The system [employer] generated this result transmitted ref erence range: 0.00 - 1 .30 K/L. The refe rence range was not u sed to interpret this result as normal/abnor mal. # Eos (manual) (test 0.11 See_Comment [Autom ated message] code = 1368) The system [employer] generated this result transmitted ref erence range: 0.00 - 0 .50 K/L. The refe rence range was not u sed to interpret this result as normal/abnor mal. # Bands (manual) (test 0.5 See_Comment [Aut omated message] code = 1349) The system [employer] generated this result transmitted ref erence range: [...] 762) Lab Interpretation (test Abnormal code = 69268-3) NPI:[id number] W/PLT COUNT & AUTO [id number] 12:19:00 Test Item Value Reference Range Interpretation [...] (test code Normal = 762) Comprehensive metabolic [id number] 12:14:00 Test Item Value Reference Range Interpretation Comments Protein, Total (test 7.0 See_Comment [Autom ated code = 2885-2) message] The system which generated this result transmit delaney reference range : 6.0 - 8.5 gm/dL . The reference range was not u sed to interpret th is result as normal/abnormal . Albumin (test code = 3.7 g/dL 3.5-5.0 84657-4) Alkaline Phosphatase 62 U/L 30-115 (test code = 6768-6) Total Bilirubin (test 1.0 mg/dL 0.1-1.2 code = 1974-2) Sodium (test code = 134 meq/L 135-148 L 2951-2) Potassium (test code 3.9 meq/L 3.6-5.5 = 2823-3) Chloride (test code = 98 meq/L 98-106 2074-0) CO2 (test code = 22 meq/L 20-29 2027-9) BUN (test code = 25 mg/dL 10-26 3094-0) Creatinine (test code 0.78 mg/dL 0.50-1.20 = 2160-0) Glucose (test code = 299 mg/dL 70-110 H 2345-7) Calcium (test code = 8.3 mg/dL 8.5-10.5 L 82497-6) AST (test code = 60 U/L 5-40 H 1920-8) ALT (test code = 56 U/L 5-50 H 1742-6) EGFR (test code = 98 mL/min/1.[place] [address]-3) NOT ACCURATE CREATININE CLEARANCE IN PREDICTING GLOMERULAR FILTRATION RATE . ESTIMATED GFR I S NOT APPLICABLE FOR DIALYSIS PATIEN TS. STARR (test code = STARR) Marshmallow Runner ID - NLYLE Lab Interpretation Abnormal (test code = 02747-8) NPI:[id number] metabolic [id number] 12:14:00 Test Item Value Reference Range Interpretation Comments Protein, Total (test 7.0 See_Comment [Autom ated code = 2885-2) message] The system which generated this result transmit delaney reference range : 6.0 - 8.5 gm/dL . The reference range was not u sed to interpret th is result as normal/abnormal . Albumin (test code = 3.7 g/dL 3.5-5.0 35790-7) Alkaline Phosphatase 62 U/L 30-115 (test code = 6768-6) Total Bilirubin (test 1.0 mg/dL 0.1-1.2 code = 1975-2) Sodium (test code = 134 meq/L 135-148 L 2951-2) Potassium (test code 3.9 meq/L 3.6-5.5 = 2823-3) Chloride (test code = 98 meq/L 98-106 2075-0) CO2 (test code = 22 meq/L 20-29 8-9) BUN (test code = 25 mg/dL 10-26 3094-0) Creatinine (test code 0.78 mg/dL 0.50-1.20 = 2160-0) Glucose (test code = 299 mg/dL 70-110 H 2345-7) Calcium (test code = 8.3 mg/dL 8.5-10.5 L 96228-8) AST (test code = 60 U/L 5-40 H 1920-8) ALT (test code = 56 U/L 5-50 H 1742-6) EGFR (test code = 98 mL/min/1.[place] [address]-7) NOT ACCURATE CREATININE CLEARANCE IN PREDICTING GLOMERULAR FILTRATION RATE . ESTIMATED GFR I S NOT APPLICABLE FOR DIALYSIS PATIEN TSGena STARR (test code = STARR) Marshmallow Runner ID - NLYLE Lab Interpretation Abnormal (test code = 90999-3) NPI:[id number] METABOLIC [id number] 12:14:00 Test Item Value Reference Range Interpretation [...] = 382) CO2 (BEAKER) (test 22 meq/L 20-29 code = 355) BLOOD UREA NITROGEN 25 mg/dL 10-26 (BEAKER) (test code = 354) CREATININE (BEAKER) [...] S NOT APPLICABLE FOR DIALYSIS PATIEN TS. Marshmallow Runner ID - NLYLEC-REACTIVE [id number] 12:13:00 Test Item Value Reference Range Interpretation Comments C-REACTIVE PROTEIN (BEAKER) (test 7.18 mg/dL 0.00-1.00 H code = 676) Marshmallow Runner ID - [id number] 12:06:00 Test Item Value Reference Range Interpretation Comments D-DIMER QUANTITATIVE 0.77 MG/L FEU <0.50 H Final Information (BEAKER) (test code = (Auto Output) 756) REGARDING D-DIMER RESULTS: The 98% NPV (Negative Predictive Value) for DVT/PE exclusion is 0.50 mg/LFEU as suggested by the voice systems engineer and as approved by the FDA.RAD, CHEST, 1 VIEW, NON [id number] 10:20:00Reason for exam:- >PneumoniaShould this be performed at the bedside?->Yes [facility] 1950 Sex: MFINAL REPORT INDICATION: Pneumonia COMPARISON: None TECHNIQUE: Single frontal view of the chest. FINDINGS: Lungs and pleura: Clear lungs. No effusion.Heart and mediastinum: Normal heart size. Unremarkable mediastinal contours.Osseous structures: No acute abnormality.Other: None. IMPRESSION: No acute intrathoracic abnormality. Signed: Bhavik Tsai MDReport Verified Date/Time: 01/15/2021 10:20:10 Reading Location: [facility] Reading Room POCT-GLUCOSE [id number] 05:26:00 Test Item Value Reference Range Interpretation Comments POC-GLUCOSE METER 260 mg/dL 70-110 H : TESTED A T [facility] ([place]) (test code BRY[address], = 1538) [facility] 770 0: Marshmallow Runner/Techni junito ID = [id number] for Kris Toussaint
--- NOTE | 2021-11-02 16:08 | RAD REPORT ---
EXAM DESCRIPTION: Joseph Single View11/02/2021 3:39 pm CLINICAL HISTORY: Chest pain COMPARISON: 2020 FINDINGS: The lungs appear clear of acute infiltrate. The heart is normal size IMPRESSION: No acute abnormalities displayed
--- NOTE | 2021-11-02 16:09 | RAD REPORT ---
EXAM DESCRIPTION: Ribs Right - 11/02/2021 3:39 pm CLINICAL HISTORY: Right rib pain FINDINGS: No fracture is seen No bony abnormalities displayed
--- NOTE | 2021-11-02 16:19 | EDPHYS ---
Physician Documentation [facility] Name: Chapo Burr Age: 71 yrs Sex: Male : 1950 Arrival Date: 11/02/2021 Time: 14:45 Bed 26 Private MD: ED Physician Gabbi Sher HPI: 11/02 15:25 This 71 yrs old Male presents to ER via Ambulatory with complaints of Rib Pain. sp3 15:25 71-year-old male with history of diabetes and hypothyroidism presents to the ED for sp3 right-sided chest bulging. Patient states that he feels his ribs are sticking out more on the right side. He denies any pain whatsoever and denies any injury. He also denies shortness of breath, chest pain, neck pain, back pain, cough, congestion, fever, URI symptoms, nausea, vomiting, diarrhea, abdominal pain, mental status changes, neurological deficits, or any other symptoms on ROS at this time. He first noticed it several days ago and is here just to make sure it is not anything critical. He is able to push his 's wheelchair without any difficulty and again he states he has no pain at all.. Historical: - Allergies: 14:52 No Known Allergies; iw - Home Meds: 14:52 Metformin Oral [Active]; insulin [Active]; iw - PMHx: 14:52 diabetes mellitus; Hypothyroidism; iw - PSHx: 14:52 Tonsillectomy; iw - Immunization history:: Client reports having NOT received the Covid vaccine. - Social history:: Smoking status: Patient/guardian denies using tobacco. ROS: 15:28 Constitutional: Negative for fever, chills, and weight loss, Eyes: Negative for injury, sp3 pain, redness, and discharge, ENT: Negative for injury, pain, and discharge, Neck: Negative for injury, pain, and swelling, Cardiovascular: Negative for chest pain, palpitations, and edema, Respiratory: Negative for shortness of breath, cough, wheezing, and pleuritic chest pain, Abdomen/GI: Negative for abdominal pain, nausea, vomiting, diarrhea, and constipation, Back: Negative for injury and pain, MS/Extremity: Negative for injury and deformity, Skin: Negative for injury, rash, and discoloration, Neuro: Negative for headache, weakness, numbness, tingling, and seizure, Psych: Negative for depression, anxiety, suicide ideation, homicidal ideation, and hallucinations, Allergy/Immunology: Negative for hives, rash, and allergies, Endocrine: Negative for neck swelling, polydipsia, polyuria, polyphagia, and marked weight changes. 15:28 All other systems are negative. Exam: 15:28 Constitutional: This is a well developed, well nourished patient who is awake, alert, sp3 and in no acute distress. Head/Face: Normocephalic, atraumatic. Eyes: Pupils equal round and reactive to light, extra-ocular motions intact. Lids and lashes normal. Conjunctiva and sclera are non-icteric and not injected. Cornea within normal limits. Periorbital areas with no swelling, redness, or edema. ENT: Nares patent. No nasal discharge, no septal abnormalities noted. External auditory canals are clear. Oropharynx with no redness, swelling, or masses, exudates, or evidence of obstruction, uvula midline. Mucous membranes moist. Neck: Trachea midline, no thyromegaly or masses palpated, and no cervical lymphadenopathy. Supple, full range of motion without nuchal rigidity, or vertebral point tenderness. No Meningismus. Cardiovascular: Regular rate and rhythm with a normal S1 and S2. No gallops, murmurs, or rubs. Normal PMI, no JVD. No pulse deficits. Respiratory: Lungs have equal breath sounds bilaterally, clear to auscultation and percussion. No rales, rhonchi or wheezes noted. No increased work of breathing, no retractions or nasal flaring. Abdomen/GI: Soft, non-tender, with normal bowel sounds. No distension or tympany. No guarding or rebound. No evidence of tenderness throughout. Back: No spinal tenderness. No costovertebral tenderness. Full range of motion. Skin: Warm, dry with normal turgor. Normal color with no rashes, no lesions, and no evidence of cellulitis. MS/ Extremity: Pulses equal, no cyanosis. Neurovascular intact. Full, normal range of motion. Neuro: Awake and alert, GCS 15, oriented to person, place, time, and situation. Cranial nerves II-XII grossly intact. Motor strength 5/5 in all extremities. Sensory grossly intact. Cerebellar exam normal. Normal gait. Psych: Awake, alert, with orientation to person, place and time. Behavior, mood, and affect are within normal limits. 15:28 Chest/axilla: Lower right sided chest cartilage/ribs to protrude mildly further than left however there are no abnormalities on palpation and exam is otherwise normal. Lung sounds are also normal. No pain to palpation on the abdomen or back.. Vital Signs: 14:50 BP 138 / 68; Pulse 63; Resp 16; Temp 98.7; Pulse Ox 99% on R/A; Weight 81.65 kg; Height iw 5 ft. 11 in. (180.34 cm); 16:24 BP 114 / 56; Pulse 55; Resp 16; Pulse Ox 100% on R/A; Pain 0/10; ss 14:50 Body Mass Index 25.10 (81.65 kg, 180.34 cm) iw MDM: 15:01 Patient medically screened. sp3 15:30 Data reviewed: vital signs, nurses notes. ED course: Will obtain x-rays of the chest sp3 and ribs. If negative will discharge patient home as there is no acute abnormality or critical findings at this time.. 16:17 ED course: X-rays reviewed by me as well as radiologist demonstrate no acute sp3 abnormality. Patient is in no pain. We will discharge patient home at this time.. 11/02 15:02 Order name: Ribs Right XRAY; Complete Time: 16:17 sp3 11/02 15:02 Order name: CXR XRAY; Complete Time: 16:17 sp3 Administered Medications: No medications were administered Disposition Summary: 11/02/21 16:18 Discharge Ordered Location: Home sp3 Condition: Stable sp3 Diagnosis - NORMAL EXAM sp3 Followup: sp3 - With: Private Physician - When: Upon discharge from the Emergency Department - Reason: If symptoms return Discharge Instructions: - Discharge Summary Sheet sp3 - Chest X-Ray sp3 Forms: - Medication Reconciliation Form sp3 - Thank You Letter sp3 - Antibiotic Education sp3 - Prescription Opioid Use sp3 Signatures: Dispatcher [employer] Gwendolyn Dunaway, CRYSTAL RN iw Gabbi Sher MD MD sp3
--- NOTE | 2021-11-02 16:19 | ER ---
Nurse's Notes [facility] Name: Chapo Burr Age: 71 yrs Sex: Male : 1950 Arrival Date: 11/02/2021 Time: 14:45 Bed 26 Private MD: Diagnosis: NORMAL EXAM Presentation: 11/02 14:50 Chief complaint: Patient states: has a deformity in right side of rib cage , denies iw pain, feels tightness across upper abd , denies SOB or diff breathing, noticed it 48 hours ago. Coronavirus screen: At this time, the client does not indicate any symptoms associated with coronavirus-19. Ebola Screen: Patient negative for fever greater than or equal to 101.5 degrees Fahrenheit, and additional compatible Ebola Virus Disease symptoms Patient denies exposure to infectious person. Patient denies travel to an Ebola-affected area in the 21 days before illness onset. No symptoms or risks identified at this time. Initial Sepsis Screen: Does the patient meet any 2 criteria? No. Patient's initial sepsis screen is negative. Does the patient have a suspected source of infection? No. Patient's initial sepsis screen is negative. Risk Assessment: Do you want to hurt yourself or someone else? Patient reports no desire to harm self or others. Onset of symptoms was October 31, 2021. 14:50 Method Of Arrival: Ambulatory iw 14:50 Acuity: JANES 3 iw Historical: - Allergies: 14:52 No Known Allergies; iw - Home Meds: 14:52 Metformin Oral [Active]; insulin [Active]; iw - PMHx: 14:52 diabetes mellitus; Hypothyroidism; iw - PSHx: 14:52 Tonsillectomy; iw - Immunization history:: Client reports having NOT received the Covid vaccine. - Social history:: Smoking status: Patient/guardian denies using tobacco. Screenin:07 Abuse screen: Denies threats or abuse. Denies injuries from another. Nutritional ab2 screening: No deficits noted. Tuberculosis screening: No symptoms or risk factors identified. Fall Risk None identified. Assessment: 15:06 General: Appears in no apparent distress. comfortable, Behavior is calm, cooperative, ab2 appropriate for age. Pain: Denies pain. Neuro: Level of Consciousness is awake, alert, obeys commands, Oriented to person, place, time, situation, Appropriate for age [employer] are equal bilaterally Moves all extremities. Gait is steady, Speech is normal, Facial symmetry appears normal, Intact. Cardiovascular: No deficits noted. Denies chest pain, shortness of breath, Heart tones S1 S2 present Patient's skin is warm and dry. Respiratory: Airway is patent Respiratory effort is even, unlabored, Respiratory pattern is regular, symmetrical, Breath sounds are clear bilaterally. GI: No deficits noted. No signs and/or symptoms were reported involving the gastrointestinal system. Abdomen is round non-distended, Abd is soft and non tender. : No deficits noted. No signs and/or symptoms were reported regarding the genitourinary system. Derm: Skin is intact, is healthy with good turgor, Skin is pink, warm \T\ dry. 16:23 Reassessment: Patient appears in no apparent distress at this time. Patient and/or ss family updated on plan of care and expected duration. Pain level reassessed. Patient is alert, oriented x 3, equal unlabored respirations, skin warm/dry/pink. Vital Signs: 14:50 BP 138 / 68; Pulse 63; Resp 16; Temp 98.7; Pulse Ox 99% on R/A; Weight 81.65 kg; Height iw 5 ft. 11 in. (180.34 cm); 16:24 BP 114 / 56; Pulse 55; Resp 16; Pulse Ox 100% on R/A; Pain 0/10; ss 14:50 Body Mass Index 25.10 (81.65 kg, 180.34 cm) iw ED Course: 14:45 Patient arrived in ED. rg4 14:52 Triage completed. iw 14:55 Arm band placed on. iw 14:56 Gabbi Sher MD is Attending Physician. sp3 15:04 Nish Morris is Primary Nurse. ab2 15:07 Patient has correct armband on for positive identification. Bed in low position. Call ab2 light in reach. Side rails up X2. 15:07 No provider procedures requiring assistance completed. ab2 15:41 Ribs Right XRAY In Process Unspecified. EDMS 15:41 CXR XRAY In Process Unspecified. EDMS 16:24 Patient did not have IV access during this emergency room visit. ss Administered Medications: No medications were administered Outcome: 16:18 Discharge ordered by . sp3 16:24 Discharged to home ambulatory, with family. ss 16:24 Condition: good 16:24 Discharge instructions given to patient, family, Instructed on discharge instructions, follow up and referral plans. Demonstrated understanding of instructions, follow-up care, medications. 16:24 Patient left the ED. Signatures: Dispatcher [employer] EDGwendolyn Fowler RN RN iw Smirch, Shelby, RN RN ss Garcia, Rubi rg4 Gabbi Sher MD MD sp3 Nish Morris2
[2021-11-02 16:29] VITALS: TEMP 98.7
[2021-11-02 16:30] VITALS: BP 114/56; O2SAT 100
== END 2021-11-02 16:24 | disposition home or self-care (01) ==
LOC: ER 14:42
DX: Z71.1 Person with feared health complaint in whom no diagnosis is made (principal); E11.9 Type 2 diabetes mellitus without complications; E03.9 Hypothyroidism, unspecified
CPT/HCPCS: 71045; 99283

== ENCOUNTER 2022-12-16 10:50 | Inpatient (IN) | payer OTHER ==
--- OUTSIDE RECORDS SUMMARY | 2022-12-16 10:56 | XMS REPORT | Continuity of Care Document ---
:1950 Author Organization [facility] t Address [address] [place] [address] Care Team Providers Name Role Phone Yandel Sher Attending Clinician Unavailable [id number] Attending Clinician Unavailable Davi Pelayo Rahil Attending Clinician Unavailable TIP ZAYAS Attending Clinician Unavailable Tip Zayas MD Attending Clinician Angelia Elena MD Attending Clinician [phone] Admitting Clinician Unavailable Davi Pelayo Rahil Admitting Clinician Unavailable TIP ZAYAS Admitting Clinician Unavailable Payers Payer Name Policy Type Policy Number Effective Date Expiration Date S finesse [facility] [id number] MEDICARE A B [id number] 2014 00:00:00 MEDICARE MB [id number] 2014 [facility] NOVITAS 00:00:00 - [facility] MEDICARE MB [id number] 2014 [facility] NOVITAS 00:00:00 [facility] MEDICARE MB [id number] 2014 [facility] NOVITAS 00:00:00 - [facility] MEDICARE MB [id number] 2014 [facility] NOVITAS 00:00:00 - [facility] MEDICARE MB [id number] 2014 [facility] NOVITAS 00:00:00 - [facility] MEDICARE MB [id number] 2014 [facility] NOVITAS 00:00:00 - [facility] Problems Condition Condition Condition Status Onset Resolution Last Treating Co mments Source Name Details Category Date Date Treatment Clinician Date COVID-19 COVID-19 Disease Active [facility] virus virus 01[facility]15 [facility] infection infection 00:00: [place] [id number] Center Type 2 Type 2 Problem Common diabetes diabetes Spirit mellitus mellitus - [facility] without without St complicati complicati [facility] Acute cor Other Problem Common pulmonale pulmonary Spir it embolism - [facility]I with acute [facility] [id number] LORENA Problem Common (generaliz Spirit ed anxiety - CHI disorder) [facility] [id number] Hypothyroi Problem Co mmon dism Spirit (acquired) - [facility] [id number] Moderate Problem Commo n major Spirit depression - [facility] , single [facility] Anxiety Anxiety Problem Common disorder disorder Spirit - [facility] Other Other Problem Common acute acute Spirit pulmonary pulmonary - CH I embolism embolism St with acute with acute Lucinda kes cor [facility] Cent er Anxiety Anxiety Problem Common state disorder, Spirit unspecifie - [facility]I d anxiety St disorder 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 - CHI other part St of left [facility] foot with Medical unspecifie Center d severity Foot ulcer Type 2 Problem Commo n due to diabetes Spirit type 2 mellitus - [facility]I diabetes with foot mellitus ulcer [facility] [id number] Type 2 Problem Common diabetes Spirit mellitus - [facility] with [facility] Medical without Center long-term current use of insulin [id number] Kidney Problem Common stones [facility] - [facility] [id number] Diabetic Problem Comm on polyneurop Spirit athy - [facility] associated St with 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 of - [facility] insulin [facility] [id number] Type 2 Problem Common diabetes [facility] mellitus - [facility] without complicati [facility] [id number] Mixed Problem Common hyperlipid [facility] emia - [facility] Allergies, Adverse Reactions, Alerts Allergy Allergy Status Severity Reaction(s) Onset Inactive Treating Comm ents Source Name Type Date Date Clinician NO KNOWN Allergy Active [facility] Social History Social Habit Start Date Stop Date Quantity Comments Source History of Tobacco [facility] - Use [facility] Tobacco use and 2021-01-15 2021-01-15 Never used [facility] exposure 00:00:00 00:00:00 [place] Sex [birth year] [facility] 00:00:00 00:00:00 [place] Smoking Status Start Date Stop Date Source Former Smoker 2022-06-19 00:00:00 2022-06-19 00:00:00 [facility] Never Smoker [facility] - [facility] Current every day 2021-01-15 00:00:00 [facility] smoker Center Medications Ordered Filled Start Stop Current Ordering Indication Dosage Frequency Signature Comments Components Source Medication Medication Date Date Medication? Clinician (SIG) Name Name glipiZIDE glipiZIDE 2021-06 No 1{table QD glipiZIDE ER 2.5 MG ER 2.5 MG 0-17 t_with_ ER 2.5 MG 00:00: st} Sertraline Sertraline No 1{table QD Sertraline HCl 50 MG HCl 50 MG 9-24 t} HCl 50 MG 00:00: 00 metFORMIN metFORMIN 2020-0 No 1{table BID metFORMIN HCl 500 MG HCl 500 MG 9-24 t_with_ HCl 500 MG 00:00: a_meal} 00 Digoxin 250 Digoxin 250 2020-0 No 1{table QD Digoxin MCG MCG 9-24 t} 250 MCG 00:00: 00 Sertraline Sertraline 2020-0 No 1{table QD Sertraline HCl 50 MG HCl 50 MG 9-24 t} HCl 50 MG 00:00: 00 metFORMIN metFORMIN 2020-0 No 1{table BID metFORMIN HCl 500 MG HCl 500 MG 9-24 t_with_ HCl 500 MG 00:00: a_meal} 00 Digoxin 250 Digoxin 250 2020-0 No 1{table QD Digoxin MCG MCG 9-24 t} 250 MCG 00:00: 00 Sertraline Sertraline 2020-0 No 1{table QD Sertraline HCl 50 MG HCl 50 MG 9-24 t} HCl 50 MG 00:00: 00 metFORMIN metFORMIN 2020-0 No 1{table BID metFORMIN HCl 500 MG HCl 500 MG 9-24 t_with_ HCl 500 MG 00:00: a_meal} 00 Digoxin 250 Digoxin 250 2020-0 No 1{table QD Digoxin MCG MCG 9-24 t} 250 MCG 00:00: 00 Sertraline Sertraline 2020-0 No 1{table QD Sertraline HCl 50 MG HCl 50 MG 9-24 t} HCl 50 MG 00:00: 00 Digoxin 250 Digoxin 250 2020-0 No 1{table QD Digoxin MCG MCG 9-24 t} 250 MCG 00:00: 00 metFORMIN metFORMIN 2020-0 No 1{table BID metFORMIN HCl 500 MG HCl 500 MG 9-24 t_with_ HCl 500 MG 00:00: a_meal} 00 Sertraline Sertraline 2020-0 No 1{table QD Sertraline HCl 50 MG HCl 50 MG 9-24 t} HCl 50 MG 00:00: 00 Digoxin 250 Digoxin 250 2020-0 No 1{table QD Digoxin MCG MCG 9-24 t} 250 MCG 00:00: 00 metFORMIN metFORMIN 2020-0 No 1{table BID metFORMIN HCl 500 MG HCl 500 MG 9-24 t_with_ HCl 500 MG 00:00: a_meal} 00 Sertraline Sertraline 2020-0 No 1{table QD Sertraline HCl 50 MG HCl 50 MG 9-24 t} HCl 50 MG 00:00: 00 Digoxin 250 Digoxin 250 No 1{table QD Digoxin MCG MCG 9-24 t} 250 MCG 00:00: 00 metFORMIN metFORMIN No 1{table BID metFORMIN HCl 500 MG HCl 500 MG 9-24 t_with_ HCl 500 MG 00:00: a_meal} 00 Sertraline Sertraline No 1{table QD Sertraline HCl 50 MG HCl 50 MG 9-24 t} HCl 50 MG 00:00: 00 metFORMIN metFORMIN No 1{table BID metFORMIN HCl 500 MG HCl 500 MG 9-24 t_with_ HCl 500 MG 00:00: a_meal} 00 Sertraline Sertraline No 1{table QD Sertraline HCl 50 MG HCl 50 MG 9-24 t} HCl 50 MG 00:00: 00 metFORMIN metFORMIN No 1{table BID metFORMIN HCl 500 MG HCl 500 MG 9-24 t_with_ HCl 500 MG 00:00: a_meal} 00 Digoxin 250 Digoxin 250 No 1{table QD Digoxin MCG MCG 9-24 t} 250 MCG 00:00: 00 Xarelto 20 Xarelto 20 No 1{table QD Xarelto 20 MG MG 8-26 t_with_ MG 00:00: food} Xarelto 20 Xarelto 20 No 1{table QD Xarelto 20 MG MG 8-26 t_with_ MG 00:00: food} Xarelto 20 Xarelto 20 No 1{table QD Xarelto 20 MG MG 8-26 t_with_ MG 00:00: food} 00 insulin Yes type 2 20U Q.5D Inject [address] glargine 7-20 [facility] (L[facility]US) 16:42: mellitus subcutaneo Medical 100 unit/mL 13 usly 2 Center injection (two) times daily Use as directed . gabapentin Yes 300mg [id number] Take [address] (NEURONTIN) 7-20 [id number] mg by L ukes 300 MG 16:42: 3D mouth 3 Medical capsule 13 (three) Center times daily . insulin Yes type 2 20U Q.5D Inject [address] glargine 7-20 [facility] (LANTUS) 16:42: mellitus subcutaneo Medical 100 unit/mL 13 usly 2 Center injection (two) times daily Use as directed . gabapentin Yes 300mg Q.[id number] Take [address] (NEURONTIN) 7-20 [id number] mg by L ukes 300 MG 16:42: 3D mouth 3 Medical capsule 13 (three) Center times daily . insulin Yes type 2 20U Q.5D Inject [address] glargine 7-20 diabetes [facility] (LANTUS) 16:42: mellitus subcutaneo Medical 100 unit/mL 13 usly 2 Center injection (two) times daily Use as directed . gabapentin Yes 300mg Q.[id number] Take [address] (NEURONTIN) 7-20 [id number] mg by L ukes 300 MG 16:42: 3D mouth 3 Medical capsule 13 (three) Center times daily . famotidine 2020- No 20mg Take [address] (PEPCID) 20 7-20 07-30 tablet (20 [facility] MG tablet 00:00: 23:59 mg total) Me dical 00 :00 by mouth Center every 12 (twelve) hours for 10 days. famotidine 2020- No 20mg Take [address] (PEPCID) 20 7-20 07-30 tablet (20 [facility] MG tablet 00:00: 23:59 mg total) Me dical 00 :00 by mouth Center every 12 (twelve) hours for 10 days. dexAMETHaso 2020- No 6mg Take [address] ne 7-20 07-28 tablet (6 [facility] (DECADRON) 00:00: 23:59 mg total) M edical 6 MG tablet 00 :00 by mouth Cent er daily with breakfast for 8 days. dexAMETHaso 2020- No 6mg Take [address] ne 7-20 07-28 tablet (6 [facility] (DECADRON) 00:00: 23:59 mg total) M edical 6 MG tablet 00 :00 by mouth Cent er daily with breakfast for 8 days. atorvastati Yes [address] [facility] (Lipitor) 3-29 Orally [facility] 10 MG 00:00: Once a day Medica l tablet 00 for 90 Center days insulin Yes Inject 10 [facility] t degludec 3-29 units [facility] (Tresiba 00:00: Subcutaneo Med ical FlexTouch 00 us once a Cente r U-200) 200 day for 90 unit/mL (3 days mL) InPn levothyroxi Yes [address] ne 3-29 in the [facility] (SYNTHROID, 00:00: morning on Medical LEVOTHROID) 00 an empty Cent er 25 MCG stomach tablet Orally Once a day for 90 days atorvastati Yes [address] [facility] (Lipitor) 3-29 Orally [facility] 10 MG 00:00: Once a day Medica l tablet 00 for 90 Center days insulin Yes Inject 10 [facility] t degludec 3-29 units [facility] (Tresiba 00:00: Subcutaneo Med ical FlexTouch 00 us once a Cente r U-200) 200 day for 90 unit/mL (3 days mL) InPn levothyroxi Yes [address] ne 3-29 in the [facility] (SYNTHROID, 00:00: morning on Medical LEVOTHROID) 00 an empty Cent er 25 MCG stomach tablet Orally Once a day for 90 days atorvastati Yes [address] [facility] (Lipitor) 3-29 Orally [facility] 10 MG 00:00: Once a day Medica l tablet 00 for 90 Center days insulin Yes Inject 10 [facility] t degludec 3-29 units [facility] (Tresiba 00:00: Subcutaneo Med ical FlexTouch 00 us once a Cente r U-200) 200 day for 90 unit/mL (3 days mL) InPn levothyroxi Yes [address] ne 3-29 in the [facility] (SYNTHROID, 00:00: morning on Medical LEVOTHROID) 00 an empty Cent er 25 MCG stomach tablet Orally Once a day for 90 days Levothyroxi Levothyroxi No QD Levothyrox ne Sodium ne Sodium ine Sodium 25 MCG 25 MCG 25 MCG Gabapentin Gabapentin No 1{capsu QD Gabapentin 300 MG 300 MG le} 300 MG Tresiba Tresiba No QD Tresiba FlexTouch FlexTouch FlexTouch 200 UNIT/ML 200 UNIT/ML 200 UNIT/ML Lipitor 10 Lipitor 10 No 1{table QD Lipitor 10 MG MG t} MG Levothyroxi Levothyroxi No QD Levothyrox ne Sodium ne Sodium ine Sodium 25 MCG 25 MCG 25 MCG Tresiba Tresiba No QD Tresiba FlexTouch FlexTouch FlexTouch 200 UNIT/ML 200 UNIT/ML 200 UNIT/ML Lipitor 10 Lipitor 10 No 1{table QD Lipitor 10 MG MG t} MG Lantus Lantus No Lantus SoloStar SoloStar SoloStar 100 unit/mL 100 unit/mL 100 unit/mL Gabapentin Gabapentin No 1{capsu QD Gabapentin 300 MG 300 MG le} 300 MG Lantus Lantus No Lantus SoloStar SoloStar SoloStar 100 unit/mL 100 unit/mL 100 unit/mL Lipitor 10 Lipitor 10 No 1{table QD Lipitor 10 MG MG t} MG Tresiba Tresiba No QD Tresiba FlexTouch FlexTouch FlexTouch 200 UNIT/ML 200 UNIT/ML 200 UNIT/ML Xarelto 20 Xarelto 20 No 1{table QD Xarelto 20 MG MG t_with_ MG food} Gabapentin Gabapentin No 1{capsu QD Gabapentin 300 MG 300 MG le} 300 MG Levothyroxi Levothyroxi No QD Levothyrox ne Sodium ne Sodium ine Sodium 25 MCG 25 MCG 25 MCG Levothyroxi Levothyroxi No QD Levothyrox ne Sodium ne Sodium ine Sodium 25 MCG 25 MCG 25 MCG Lantus Lantus No Lantus SoloStar SoloStar SoloStar 100 unit/mL 100 unit/mL 100 unit/mL Gabapentin Gabapentin No 1{capsu QD Gabapentin 300 MG 300 MG le} 300 MG Docusate Docusate No 1{capsu QD Docusate Sodium 100 Sodium 100 le_as_n Sodium 100 MG MG eeded} MG Midodrine Midodrine No 1{table BID Midodrine HCl 5 MG HCl 5 MG t} HCl 5 MG Lipitor 10 Lipitor 10 No 1{table QD Lipitor 10 MG MG t} MG Tresiba Tresiba No QD Tresiba FlexTouch FlexTouch FlexTouch 200 UNIT/ML 200 UNIT/ML 200 UNIT/ML Levothyroxi Levothyroxi No QD Levothyrox ne Sodium ne Sodium ine Sodium 25 MCG 25 MCG 25 MCG Lantus Lantus No Lantus SoloStar SoloStar SoloStar 100 unit/mL 100 unit/mL 100 unit/mL Gabapentin Gabapentin No 1{capsu QD Gabapentin 300 MG 300 MG le} 300 MG Docusate Docusate No 1{capsu QD Docusate Sodium 100 Sodium 100 le_as_n Sodium 100 MG MG eeded} MG Midodrine Midodrine No 1{table BID Midodrine HCl 5 MG HCl 5 MG t} HCl 5 MG Lipitor 10 Lipitor 10 No 1{table QD Lipitor 10 MG MG t} MG Tresiba Tresiba No QD Tresiba FlexTouch FlexTouch FlexTouch 200 UNIT/ML 200 UNIT/ML 200 UNIT/ML Levothyroxi Levothyroxi No QD Levothyrox ne Sodium ne Sodium ine Sodium 25 MCG 25 MCG 25 MCG Lantus Lantus No QD Lantus SoloStar SoloStar SoloStar 100 unit/mL 100 unit/mL 100 unit/mL Gabapentin Gabapentin No 1{capsu QD Gabapentin 300 MG 300 MG le} 300 MG Docusate Docusate No 1{capsu QD Docusate Sodium 100 Sodium 100 le_as_n Sodium 100 MG MG eeded} MG Midodrine Midodrine No 1{table BID Midodrine HCl 5 MG HCl 5 MG t} HCl 5 MG Lipitor 10 Lipitor 10 No 1{table QD Lipitor 10 MG MG t} MG Tresiba Tresiba No QD Tresiba FlexTouch FlexTouch FlexTouch 200 UNIT/ML 200 UNIT/ML 200 UNIT/ML Docusate Docusate No 1{capsu QD Docusate Sodium 100 Sodium 100 le_as_n Sodium 100 MG MG eeded} MG Lantus Lantus No QD Lantus SoloStar SoloStar SoloStar 100 unit/mL 100 unit/mL 100 unit/mL Digoxin 250 Digoxin 250 No Digoxin mcg mcg 250 mcg Tresiba Tresiba No QD Tresiba FlexTouch FlexTouch FlexTouch 200 UNIT/ML 200 UNIT/ML 200 UNIT/ML Levothyroxi Levothyroxi No QD Levothyrox ne Sodium ne Sodium ine Sodium 25 MCG 25 MCG 25 MCG Lipitor 10 Lipitor 10 No 1{table QD Lipitor 10 MG MG t} MG Midodrine Midodrine No 1{table BID Midodrine HCl 5 MG HCl 5 MG t} HCl 5 MG Gabapentin Gabapentin No 1{capsu QD Gabapentin 300 MG 300 MG le} 300 MG metFORMIN metFORMIN No 1{table BID metFORMIN HCl 500 MG HCl 500 MG t_with_ HCl 500 MG a_meal} Lantus Lantus No Lantus SoloStar SoloStar SoloStar 100 unit/mL 100 unit/mL 100 unit/mL Lipitor 10 Lipitor 10 No 1{table QD Lipitor 10 MG MG t} MG Gabapentin Gabapentin No 1{capsu QD Gabapentin 300 MG 300 MG le} 300 MG Levothyroxi Levothyroxi No QD Levothyrox ne Sodium ne Sodium ine Sodium 25 MCG 25 MCG 25 MCG Midodrine Midodrine No 1{table BID Midodrine HCl 5 MG HCl 5 MG t} HCl 5 MG Digoxin 250 Digoxin 250 No 1{table QD Digoxin MCG MCG t} 250 MCG metFORMIN metFORMIN No 1{table BID metFORMIN HCl 500 MG HCl 500 MG t_with_ HCl 500 MG a_meal} Lantus Lantus No Lantus SoloStar SoloStar SoloStar 100 unit/mL 100 unit/mL 100 unit/mL Lipitor 10 Lipitor 10 No 1{table QD Lipitor 10 MG MG t} MG Gabapentin Gabapentin No 1{capsu QD Gabapentin 300 MG 300 MG le} 300 MG Levothyroxi Levothyroxi No QD Levothyrox ne Sodium ne Sodium ine Sodium 25 MCG 25 MCG 25 MCG Midodrine Midodrine No 1{table BID Midodrine HCl 5 MG HCl 5 MG t} HCl 5 MG Digoxin 250 Digoxin 250 No 1{table QD Digoxin MCG MCG t} 250 MCG metFORMIN metFORMIN No 1{table BID metFORMIN HCl 500 MG HCl 500 MG t_with_ HCl 500 MG a_meal} Lantus Lantus No Lantus SoloStar SoloStar SoloStar 100 unit/mL 100 unit/mL 100 unit/mL Lipitor 10 Lipitor 10 No 1{table QD Lipitor 10 MG MG t} MG Gabapentin Gabapentin No 1{capsu QD Gabapentin 300 MG 300 MG le} 300 MG Levothyroxi Levothyroxi No QD Levothyrox ne Sodium ne Sodium ine Sodium 25 MCG 25 MCG 25 MCG Midodrine Midodrine No 1{table BID Midodrine HCl 5 MG HCl 5 MG t} HCl 5 MG Digoxin 250 Digoxin 250 No 1{table QD Digoxin MCG MCG t} 250 MCG metFORMIN metFORMIN No 1{table BID metFORMIN HCl 500 MG HCl 500 MG t_with_ HCl 500 MG a_meal} Midodrine Midodrine No BID Midodrine HCl 5 MG HCl 5 MG HCl 5 MG Levothyroxi Levothyroxi No Levothyrox ne Sodium ne Sodium ine Sodium 25 MCG 25 MCG 25 MCG Digoxin 250 Digoxin 250 No 1{table QD Digoxin MCG MCG t} 250 MCG Gabapentin Gabapentin No 1{capsu QD Gabapentin 300 MG 300 MG le} 300 MG Sertraline Sertraline No Sertraline HCl 50 MG HCl 50 MG HCl 50 MG Lantus Lantus No Lantus SoloStar SoloStar SoloStar 100 unit/mL 100 unit/mL 100 unit/mL Lipitor 10 Lipitor 10 No 1{table QD Lipitor 10 MG MG t} MG Midodrine Midodrine No 1{table BID Midodrine HCl 5 MG HCl 5 MG t} HCl 5 MG Midodrine Midodrine No BID Midodrine HCl 5 MG HCl 5 MG HCl 5 MG Levothyroxi Levothyroxi No Levothyrox ne Sodium ne Sodium ine Sodium 25 MCG 25 MCG 25 MCG Lipitor 10 Lipitor 10 No 1{table QD Lipitor 10 MG MG t} MG Digoxin 250 Digoxin 250 No 1{table QD Digoxin MCG MCG t} 250 MCG metFORMIN metFORMIN No 1{table BID metFORMIN HCl 500 MG HCl 500 MG t_with_ HCl 500 MG a_meal} Lantus Lantus No Lantus SoloStar SoloStar SoloStar 100 unit/mL 100 unit/mL 100 unit/mL Gabapentin Gabapentin No 1{capsu QD Gabapentin 300 MG 300 MG le} 300 MG Levothyroxi Levothyroxi No QD Levothyrox ne Sodium ne Sodium ine Sodium 25 MCG 25 MCG 25 MCG Lantus Lantus No Lantus SoloStar SoloStar SoloStar 100 unit/mL 100 unit/mL 100 unit/mL Sertraline Sertraline No Sertraline HCl 50 MG HCl 50 MG HCl 50 MG metFORMIN metFORMIN No metFORMIN HCl 500 MG HCl 500 MG HCl 500 MG Midodrine Midodrine No BID Midodrine HCl 5 MG HCl 5 MG HCl 5 MG Levothyroxi Levothyroxi No Levothyrox ne Sodium ne Sodium ine Sodium 25 MCG 25 MCG 25 MCG Lipitor 10 Lipitor 10 No 1{table QD Lipitor 10 MG MG t} MG Digoxin 250 Digoxin 250 No 1{table QD Digoxin MCG MCG t} 250 MCG Lantus Lantus No Lantus SoloStar SoloStar SoloStar 100 unit/mL 100 unit/mL 100 unit/mL Lantus Lantus No Lantus SoloStar SoloStar SoloStar 100 unit/mL 100 unit/mL 100 unit/mL Midodrine Midodrine No 1{table BID Midodrine HCl 5 MG HCl 5 MG t} HCl 5 MG Levothyroxi Levothyroxi No QD Levothyrox ne Sodium ne Sodium ine Sodium 25 MCG 25 MCG 25 MCG Gabapentin Gabapentin No 1{capsu QD Gabapentin 300 MG 300 MG le} 300 MG Sertraline Sertraline No Sertraline HCl 50 MG HCl 50 MG HCl 50 MG Midodrine Midodrine No 1{table BID Midodrine HCl 5 MG HCl 5 MG t} HCl 5 MG Midodrine Midodrine No BID Midodrine HCl 5 MG HCl 5 MG HCl 5 MG Levothyroxi Levothyroxi No Levothyrox ne Sodium ne Sodium ine Sodium 25 MCG 25 MCG 25 MCG Lipitor 10 Lipitor 10 No 1{table QD Lipitor 10 MG MG t} MG Levothyroxi Levothyroxi No QD Levothyrox ne Sodium ne Sodium ine Sodium 25 MCG 25 MCG 25 MCG Digoxin 250 Digoxin 250 No 1{table QD Digoxin MCG MCG t} 250 MCG Lantus Lantus No Lantus SoloStar SoloStar SoloStar 100 unit/mL 100 unit/mL 100 unit/mL Gabapentin Gabapentin No 1{capsu QD Gabapentin 300 MG 300 MG le} 300 MG metFORMIN metFORMIN No metFORMIN HCl 500 MG HCl 500 MG HCl 500 MG Lantus Lantus No Lantus SoloStar SoloStar SoloStar 100 unit/mL 100 unit/mL 100 unit/mL Sertraline Sertraline No QD Sertraline HCl 50 MG HCl 50 MG HCl 50 MG Levothyroxi Levothyroxi No QD Levothyrox ne Sodium ne Sodium ine Sodium 25 MCG 25 MCG 25 MCG Midodrine Midodrine No 1{table BID Midodrine HCl 5 MG HCl 5 MG t} HCl 5 MG Midodrine Midodrine No BID Midodrine HCl 5 MG HCl 5 MG HCl 5 MG Lantus Lantus No Lantus SoloStar SoloStar SoloStar 100 unit/mL 100 unit/mL 100 unit/mL Digoxin 250 Digoxin 250 No Digoxin mcg mcg 250 mcg Lipitor 10 Lipitor 10 No 1{table QD Lipitor 10 MG MG t} MG Gabapentin Gabapentin No 1{capsu QD Gabapentin 300 MG 300 MG le} 300 MG metFORMIN metFORMIN No 1{table BID metFORMIN HCl 500 MG HCl 500 MG t_with_ HCl 500 MG a_meal} Levothyroxi Levothyroxi No Levothyrox ne Sodium ne Sodium ine Sodium 25 MCG 25 MCG 25 MCG metFORMIN metFORMIN No metFORMIN HCl 500 MG HCl 500 MG HCl 500 MG Lantus Lantus No Lantus SoloStar SoloStar SoloStar 100 unit/mL 100 unit/mL 100 unit/mL Sertraline Sertraline No QD Sertraline HCl 50 MG HCl 50 MG HCl 50 MG Levothyroxi Levothyroxi No QD Levothyrox ne Sodium ne Sodium ine Sodium 25 MCG 25 MCG 25 MCG Midodrine Midodrine No 1{table BID Midodrine HCl 5 MG HCl 5 MG t} HCl 5 MG Midodrine Midodrine No BID Midodrine HCl 5 MG HCl 5 MG HCl 5 MG Lantus Lantus No Lantus SoloStar SoloStar SoloStar 100 unit/mL 100 unit/mL 100 unit/mL Digoxin 250 Digoxin 250 No Digoxin mcg mcg 250 mcg Lipitor 10 Lipitor 10 No 1{table QD Lipitor 10 MG MG t} MG Gabapentin Gabapentin No 1{capsu QD Gabapentin 300 MG 300 MG le} 300 MG metFORMIN metFORMIN No 1{table BID metFORMIN HCl 500 MG HCl 500 MG t_with_ HCl 500 MG a_meal} Levothyroxi Levothyroxi No Levothyrox ne Sodium ne Sodium ine Sodium 25 MCG 25 MCG 25 MCG metFORMIN metFORMIN No metFORMIN HCl 500 MG HCl 500 MG HCl 500 MG Lantus Lantus No Lantus SoloStar SoloStar SoloStar 100 unit/mL 100 unit/mL 100 unit/mL Sertraline Sertraline No QD Sertraline HCl 50 MG HCl 50 MG HCl 50 MG Gabapentin Gabapentin No 1{capsu QD Gabapentin 300 MG 300 MG le} 300 MG Digoxin 250 Digoxin 250 No 1{table QD Digoxin MCG MCG t} 250 MCG metFORMIN metFORMIN No 1{table BID metFORMIN HCl 1000 MG HCl 1000 MG t_with_ HCl 1000 a_meal} MG Levothyroxi Levothyroxi No QD Levothyrox ne Sodium ne Sodium ine Sodium 75 MCG 75 MCG 75 MCG Sertraline Sertraline No QD Sertraline HCl 50 MG HCl 50 MG HCl 50 MG Levothyroxi Levothyroxi No Levothyrox ne Sodium ne Sodium ine Sodium 25 MCG 25 MCG 25 MCG Lipitor 10 Lipitor 10 No 1{table QD Lipitor 10 MG MG t} MG Digoxin 250 Digoxin 250 No Digoxin mcg mcg 250 mcg Lantus Lantus No Lantus SoloStar SoloStar SoloStar 100 unit/mL 100 unit/mL 100 unit/mL Midodrine Midodrine No 1{table BID Midodrine HCl 5 MG HCl 5 MG t} HCl 5 MG Midodrine Midodrine No BID Midodrine HCl 5 MG HCl 5 MG HCl 5 MG metFORMIN metFORMIN No metFORMIN HCl 500 MG HCl 500 MG HCl 500 MG Lantus Lantus No Lantus SoloStar SoloStar SoloStar 100 unit/mL 100 unit/mL 100 unit/mL Gabapentin Gabapentin No 1{capsu QD Gabapentin 300 MG 300 MG le} 300 MG Digoxin 250 Digoxin 250 No 1{table QD Digoxin MCG MCG t} 250 MCG metFORMIN metFORMIN No 1{table BID metFORMIN HCl 1000 MG HCl 1000 MG t_with_ HCl 1000 a_meal} MG Levothyroxi Levothyroxi No QD Levothyrox ne Sodium ne Sodium ine Sodium 75 MCG 75 MCG 75 MCG Sertraline Sertraline No QD Sertraline HCl 50 MG HCl 50 MG HCl 50 MG Levothyroxi Levothyroxi No Levothyrox ne Sodium ne Sodium ine Sodium 25 MCG 25 MCG 25 MCG Lipitor 10 Lipitor 10 No 1{table QD Lipitor 10 MG MG t} MG Digoxin 250 Digoxin 250 No Digoxin mcg mcg 250 mcg Lantus Lantus No Lantus SoloStar SoloStar SoloStar 100 unit/mL 100 unit/mL 100 unit/mL Midodrine Midodrine No 1{table BID Midodrine HCl 5 MG HCl 5 MG t} HCl 5 MG Midodrine Midodrine No BID Midodrine HCl 5 MG HCl 5 MG HCl 5 MG metFORMIN metFORMIN No metFORMIN HCl 500 MG HCl 500 MG HCl 500 MG Lantus Lantus No Lantus SoloStar SoloStar SoloStar 100 unit/mL 100 unit/mL 100 unit/mL Midodrine Midodrine No BID Midodrine HCl 5 MG HCl 5 MG HCl 5 MG Lantus Lantus No Lantus SoloStar SoloStar SoloStar 100 unit/mL 100 unit/mL 100 unit/mL Midodrine Midodrine No 1{table BID Midodrine HCl 5 MG HCl 5 MG t} HCl 5 MG Levothyroxi Levothyroxi No QD Levothyrox ne Sodium ne Sodium ine Sodium 75 MCG 75 MCG 75 MCG Digoxin 250 Digoxin 250 No Digoxin mcg mcg 250 mcg metFORMIN metFORMIN No metFORMIN HCl 500 MG HCl 500 MG HCl 500 MG Lantus Lantus No Lantus SoloStar SoloStar SoloStar 100 unit/mL 100 unit/mL 100 unit/mL Levothyroxi Levothyroxi No Levothyrox ne Sodium ne Sodium ine Sodium 25 MCG 25 MCG 25 MCG Lipitor 10 Lipitor 10 No 1{table QD Lipitor 10 MG MG t} MG metFORMIN metFORMIN No 1{table BID metFORMIN HCl 1000 MG HCl 1000 MG t_with_ HCl 1000 a_meal} MG Digoxin 250 Digoxin 250 No 1{table QD Digoxin MCG MCG t} 250 MCG Gabapentin Gabapentin No 1{capsu QD Gabapentin 300 MG 300 MG le} 300 MG Sertraline Sertraline No QD Sertraline HCl 50 MG HCl 50 MG HCl 50 MG Midodrine Midodrine No BID Midodrine HCl 5 MG HCl 5 MG HCl 5 MG Lantus Lantus No Lantus SoloStar SoloStar SoloStar 100 unit/mL 100 unit/mL 100 unit/mL Midodrine Midodrine No 1{table BID Midodrine HCl 5 MG HCl 5 MG t} HCl 5 MG Levothyroxi Levothyroxi No QD Levothyrox ne Sodium ne Sodium ine Sodium 75 MCG 75 MCG 75 MCG Digoxin 250 Digoxin 250 No Digoxin mcg mcg 250 mcg metFORMIN metFORMIN No metFORMIN HCl 500 MG HCl 500 MG HCl 500 MG Lantus Lantus No Lantus SoloStar SoloStar SoloStar 100 unit/mL 100 unit/mL 100 unit/mL Levothyroxi Levothyroxi No Levothyrox ne Sodium ne Sodium ine Sodium 25 MCG 25 MCG 25 MCG Lipitor 10 Lipitor 10 No 1{table QD Lipitor 10 MG MG t} MG metFORMIN metFORMIN No 1{table BID metFORMIN HCl 1000 MG HCl 1000 MG t_with_ HCl 1000 a_meal} MG Digoxin 250 Digoxin 250 No 1{table QD Digoxin MCG MCG t} 250 MCG Gabapentin Gabapentin No 1{capsu QD Gabapentin 300 MG 300 MG le} 300 MG Sertraline Sertraline No QD Sertraline HCl 50 MG HCl 50 MG HCl 50 MG Sertraline Sertraline No QD Sertraline HCl 50 MG HCl 50 MG HCl 50 MG Midodrine Midodrine No 1{table BID Midodrine HCl 5 MG HCl 5 MG t} HCl 5 MG Lipitor 10 Lipitor 10 No 1{table QD Lipitor 10 MG MG t} MG Digoxin 250 Digoxin 250 No Digoxin mcg mcg 250 mcg Lantus Lantus No Lantus SoloStar SoloStar SoloStar 100 unit/mL 100 unit/mL 100 unit/mL Lantus Lantus No Lantus SoloStar SoloStar SoloStar 100 unit/mL 100 unit/mL 100 unit/mL Levothyroxi Levothyroxi No Levothyrox ne Sodium ne Sodium ine Sodium 25 MCG 25 MCG 25 MCG Gabapentin Gabapentin No 1{capsu QD Gabapentin 300 MG 300 MG le} 300 MG Midodrine Midodrine No BID Midodrine HCl 5 MG HCl 5 MG HCl 5 MG Levothyroxi Levothyroxi No QD Levothyrox ne Sodium ne Sodium ine Sodium 75 MCG 75 MCG 75 MCG metFORMIN metFORMIN No metFORMIN HCl 500 MG HCl 500 MG HCl 500 MG Digoxin 250 Digoxin 250 No 1{table QD Digoxin MCG MCG t} 250 MCG metFORMIN metFORMIN No 1{table BID metFORMIN HCl 1000 MG HCl 1000 MG t_with_ HCl 1000 a_meal} MG Levothyroxi Levothyroxi No QD Levothyrox ne Sodium ne Sodium ine Sodium 75 MCG 75 MCG 75 MCG Levothyroxi Levothyroxi No Levothyrox ne Sodium ne Sodium ine Sodium 25 MCG 25 MCG 25 MCG Sertraline Sertraline No QD Sertraline HCl 50 MG HCl 50 MG HCl 50 MG Gabapentin Gabapentin No 1{capsu QD Gabapentin 300 MG 300 MG le} 300 MG Lantus Lantus No Lantus SoloStar SoloStar SoloStar 100 unit/mL 100 unit/mL 100 unit/mL metFORMIN metFORMIN No 1{table BID metFORMIN HCl 1000 MG HCl 1000 MG t_with_ HCl 1000 a_meal} MG Midodrine Midodrine No 1{table QD Midodrine HCl 5 MG HCl 5 MG t} HCl 5 MG Digoxin 250 Digoxin 250 No 1{table QD Digoxin MCG MCG t} 250 MCG Lipitor 10 Lipitor 10 No 1{table QD Lipitor 10 MG MG t} MG Midodrine Midodrine No BID Midodrine HCl 5 MG HCl 5 MG HCl 5 MG Digoxin 250 Digoxin 250 No Digoxin mcg mcg 250 mcg Lantus Lantus No Lantus SoloStar SoloStar SoloStar 100 unit/mL 100 unit/mL 100 unit/mL metFORMIN metFORMIN No metFORMIN HCl 500 MG HCl 500 MG HCl 500 MG Lantus Lantus No Lantus SoloStar SoloStar SoloStar 100 unit/mL 100 unit/mL 100 unit/mL metFORMIN metFORMIN No metFORMIN HCl 500 MG HCl 500 MG HCl 500 MG Midodrine Midodrine No BID Midodrine HCl 5 MG HCl 5 MG HCl 5 MG metFORMIN metFORMIN No 1{table BID metFORMIN HCl 1000 MG HCl 1000 MG t_with_ HCl 1000 a_meal} MG Levothyroxi Levothyroxi No Levothyrox ne Sodium ne Sodium ine Sodium 75 MCG 75 MCG 75 MCG glipiZIDE glipiZIDE No BID glipiZIDE ER 2.5 MG ER 2.5 MG ER 2.5 MG Melatonin Melatonin No Melatonin Digoxin 250 Digoxin 250 No 1{table QD Digoxin MCG MCG t} 250 MCG Gabapentin Gabapentin No 1{capsu QD Gabapentin 300 MG 300 MG le} 300 MG Sertraline Sertraline No QD Sertraline HCl 50 MG HCl 50 MG HCl 50 MG Colace 100 Colace 100 No 1{capsu QD Colace 100 MG MG le_as_n MG eeded} Levothyroxi Levothyroxi No QD Levothyrox ne Sodium ne Sodium ine Sodium 75 MCG 75 MCG 75 MCG Levothyroxi Levothyroxi No Levothyrox ne Sodium ne Sodium ine Sodium 25 MCG 25 MCG 25 MCG Digoxin 250 Digoxin 250 No Digoxin mcg mcg 250 mcg Lipitor 10 Lipitor 10 No 1{table QD Lipitor 10 MG MG t} MG Lantus Lantus No Lantus SoloStar SoloStar SoloStar 100 unit/mL 100 unit/mL 100 unit/mL Midodrine Midodrine No 1{table QD Midodrine HCl 5 MG HCl 5 MG t} HCl 5 MG Levothyroxi Levothyroxi No QD Levothyrox ne Sodium ne Sodium ine Sodium 75 MCG 75 MCG 75 MCG Digoxin 250 Digoxin 250 No 1{table QD Digoxin MCG MCG t} 250 MCG Melatonin Melatonin No Melatonin metFORMIN metFORMIN No 1{table BID metFORMIN HCl 1000 MG HCl 1000 MG t_with_ HCl 1000 a_meal} MG Sertraline Sertraline No Sertraline HCl 50 MG HCl 50 MG HCl 50 MG Midodrine Midodrine No 1{table QD Midodrine HCl 5 MG HCl 5 MG t} HCl 5 MG Levothyroxi Levothyroxi No Levothyrox ne Sodium ne Sodium ine Sodium 75 MCG 75 MCG 75 MCG Colace 100 Colace 100 No 1{capsu QD Colace 100 MG MG le_as_n MG eeded} Lantus Lantus No Lantus SoloStar SoloStar SoloStar 100 unit/mL 100 unit/mL 100 unit/mL Digoxin 250 Digoxin 250 No Digoxin mcg mcg 250 mcg glipiZIDE glipiZIDE No BID glipiZIDE ER 5 MG ER 5 MG ER 5 MG Midodrine Midodrine No BID Midodrine HCl 5 MG HCl 5 MG HCl 5 MG Lipitor 10 Lipitor 10 No 1{table QD Lipitor 10 MG MG t} MG Levothyroxi Levothyroxi No Levothyrox ne Sodium ne Sodium ine Sodium 25 MCG 25 MCG 25 MCG Gabapentin Gabapentin No 1{capsu QD Gabapentin 300 MG 300 MG le} 300 MG metFORMIN metFORMIN No metFORMIN HCl 500 MG HCl 500 MG HCl 500 MG Lantus Lantus No Lantus SoloStar SoloStar SoloStar 100 unit/mL 100 unit/mL 100 unit/mL Levothyroxi Levothyroxi No QD Levothyrox ne Sodium ne Sodium ine Sodium 25 MCG 25 MCG 25 MCG Gabapentin Gabapentin No 1{capsu QD Gabapentin 300 MG 300 MG le} 300 MG Tresiba Tresiba No QD Tresiba FlexTouch FlexTouch FlexTouch 200 UNIT/ML 200 UNIT/ML 200 UNIT/ML Lipitor 10 Lipitor 10 No 1{table QD Lipitor 10 MG MG t} MG Vital Signs Vital Name Observation Time Observation Value Comments Source HEIGHT 2021-01-15 04:24:00 177.8 cm WEIGHT 2021-01-15 04:24:00 78.019 kg height 2022-06-19 13:00:00 71.5 [in_i] [facility] - [facility] weight 2022-06-19 13:00:00 192 [lb_av] [facility] temperature 2022-06-19 13:00:00 97.0 [degF] [facility] bmi 2022-06-19 13:00:00 26.4 kg/m2 [facility] oximetry 2022-06-19 13:00:00 97 % [facility] respiratory rate 2022-06-19 13:00:00 16 /min Comm on [facility] blood pressure 2022-06-19 13:00:00 138 mm[Hg] [facility] - systolic [facility] blood pressure 2022-06-19 13:00:00 67 mm[Hg] [facility] - diastolic [facility] height 2022-05-16 13:20:00 71.5 [in_i] [facility] weight 2022-05-16 13:20:00 188.9 [lb_av] [facility] temperature 2022-05-16 13:20:00 97.4 [degF] [facility] bmi 2022-05-16 13:20:00 25.98 kg/m2 [facility] oximetry 2022-05-16 13:20:00 98 % [facility] 2022-05-16 13:20:00 18 /min Comm on [facility] blood pressure 2022-05-16 13:20:00 137 mm[Hg] [facility] - systolic [facility] blood pressure 2022-05-16 13:20:00 52 mm[Hg] [facility] - diastolic [facility] height 2022-04-15 13:10:00 71.5 [in_i] Common [facility] weight 2022-04-15 13:10:00 190 [lb_av] Common [facility] temperature 2022-04-15 13:10:00 97.2 [degF] Common [facility] bmi 2022-04-15 13:10:00 26.13 kg/m2 Common [facility] oximetry 2022-04-15 13:10:00 98 % Common [facility] respiratory rate 2022-04-15 13:10:00 18 /min Comm on [facility] blood pressure 2022-04-15 13:10:00 138 mm[Hg] Common [facility] - systolic [facility] blood pressure 2022-04-15 13:10:00 64 mm[Hg] Common [facility] - diastolic [facility] height 2022-03-13 13:10:00 71.5 [in_i] Common [facility] weight 2022-03-13 13:10:00 184.9 [lb_av] [facility] temperature 2022-03-13 13:10:00 97.6 [degF] [facility] bmi 2022-03-13 13:10:00 25.43 kg/m2 [facility] oximetry 2022-03-13 13:10:00 92 % Common [facility] respiratory rate 2022-03-13 13:10:00 18 /min Comm on [facility] blood pressure 2022-03-13 13:10:00 114 mm[Hg] Common [facility] - systolic [facility] blood pressure 2022-03-13 13:10:00 58 mm[Hg] Common [facility] - diastolic [facility] height 2022-02-12 15:00:00 69 [in_i] Common [facility] weight 2022-02-12 15:00:00 184.4 [lb_av] [facility] temperature 2022-02-12 15:00:00 97.7 [degF] [facility] bmi 2022-02-12 15:00:00 27.23 kg/m2 Common [facility] oximetry 2022-02-12 15:00:00 98 % Common [facility] respiratory rate 2022-02-12 15:00:00 18 /min Comm on [facility] blood pressure 2022-02-12 15:00:00 127 mm[Hg] Common [facility] - systolic [facility] blood pressure 2022-02-12 15:00:00 61 mm[Hg] Common [facility] - diastolic [facility] height 2022-01-09 15:20:00 69 [in_i] Common [facility] weight 2022-01-09 15:20:00 185.4 [lb_av] [facility] temperature 2022-01-09 15:20:00 98.0 [degF] [facility] bmi 2022-01-09 15:20:00 27.38 kg/m2 [facility] oximetry 2022-01-09 15:20:00 96 % [facility] respiratory rate 2022-01-09 15:20:00 17 /min Comm on [facility] blood pressure 2022-01-09 15:20:00 134 mm[Hg] Common [facility] systolic [facility] blood pressure 2022-01-09 15:20:00 62 mm[Hg] Common [facility] diastolic [facility] height 2021-10-24 14:40:00 69 [in_i] Common [facility] weight 2021-10-24 14:40:00 184.0 [lb_av] [facility] temperature 2021-10-24 14:40:00 97.7 [degF] [facility] bmi 2021-10-24 14:40:00 27.17 kg/m2 [facility] oximetry 2021-10-24 14:40:00 100 % [facility] respiratory rate 2021-10-24 14:40:00 18 /min Comm on [facility] blood pressure 2021-10-24 14:40:00 138 mm[Hg] [facility] blood pressure 2021-10-24 14:40:00 76 mm[Hg] [facility] diastolic [facility] height 2021-07-24 15:30:00 69 [in_i] Common [facility] weight 2021-07-24 15:30:00 180.7 [lb_av] Common [facility] - [facility] temperature 2021-07-24 15:30:00 97.9 [degF] [facility] bmi 2021-07-24 15:30:00 26.68 kg/m2 [facility] oximetry 2021-07-24 15:30:00 99 % [facility] respiratory rate 2021-07-24 15:30:00 18 /min Comm on [facility] blood pressure 2021-07-24 15:30:00 130 mm[Hg] [facility] - systolic [facility] blood pressure 2021-07-24 15:30:00 65 mm[Hg] [facility] - diastolic [facility] height 2021-07-24 16:00:00 69 [in_i] Common [facility] weight 2021-07-24 16:00:00 180.7 [lb_av] Common [facility] temperature 2021-07-24 16:00:00 97.9 [degF] Common [facility] - [facility] bmi 2021-07-24 16:00:00 26.68 kg/m2 [facility] oximetry 2021-07-24 16:00:00 99 % [facility] respiratory rate 2021-07-24 16:00:00 18 /min Comm on [facility] blood pressure 2021-07-24 16:00:00 130 mm[Hg] [facility] systolic [facility] blood pressure 2021-07-24 16:00:00 65 mm[Hg] [facility] - diastolic [facility] height 2021-05-23 15:30:00 69 [in_i] [facility] weight 2021-05-23 15:30:00 178.4 [lb_av] [facility] temperature 2021-05-23 15:30:00 98.2 [degF] [facility] bmi 2021-05-23 15:30:00 26.34 kg/m2 [facility] oximetry 2021-05-23 15:30:00 98 % [facility] respiratory rate 2021-05-23 15:30:00 18 /min Comm on [facility] blood pressure 2021-05-23 15:30:00 129 mm[Hg] [facility] - systolic [facility] blood pressure 2021-05-23 15:30:00 62 mm[Hg] [facility] - diastolic [facility] HEIGHT 2021-01-15 04:24:00 177.8 cm WEIGHT 2021-01-15 04:24:00 78.019 kg Systolic blood 2021-01-16 11:14:00 108 mm[Hg] [facility] Diastolic blood 2021-01-16 11:14:00 66 mm[Hg] [facility] Heart rate 2021-01-16 11:14:00 61 /min [facility] Body temperature 2021-01-16 11:14:00 35 Anyi [facility] Respiratory rate 2021-01-16 11:14:00 19 /min [facility] Oxygen saturation in 2021-01-16 11:14:00 96 /min [facility] Arterial blood by Medical Ce nter Pulse oximetry Body height 2021-01-15 04:24:00 177.8 cm [facility] Body weight 2021-01-15 04:24:00 78.019 kg [facility] BMI 2021-01-15 04:24:00 24.68 kg/m2 [facility] Procedures Procedure Date / Time Performed Performing Clinician Sour e POCT-GLUCOSE METER 2021-01-16 11:12:00 [facility] POCT-GLUCOSE METER 2021-01-16 06:24:00 [facility] CBC W/PLT COUNT & AUTO 2021-01-16 04:29:00 kody [facility] BASIC METABOLIC PANEL (7) 2021-01-16 04:29:00 kody [facility] C-REACTIVE PROTEIN 2021-01-16 04:29:00 [facility] PROCALCITONIN 2021-01-16 04:29:00 [facility] D-DIMER 2021-01-16 04:29[facility]O 2021-01-16 04:29:00 [facility] XR CHEST 1 VIEW PORTABLE 2021-01-16 03:59:00 Janet [facility] / BEDSIDE Medical Center POCT-GLUCOSE METER 2021-01-15 16:39:00 [facility] SARS-COV2/RT-PCR ([facility] & 2021-01-15 11:38:00 Janet, [facility] REF LABS) Medical [place] CBC W/PLT COUNT & AUTO 2021-01-15 11:38:00 Renetta [facility] C-REACTIVE PROTEIN 2021-01-15 11:38:00 kody [facility] PROCALCITONIN 2021-01-15 11:38:00 Janet [facility] D-DIMER 2021-01-15 11:38:00 Janet [facility] COMPREHENSIVE METABOLIC 2021-01-15 11:38:00 Janet [facility] PANEL [place] CBC W/PLT COUNT & AUTO 2021-01-15 11:38:00 Renetta Homaira [facility] (MANUAL DIFFERENTIAL) 2021-01-15 11:38:00 Charlotte Jacksonpawel [facility] XR CHEST 1 VIEW PORTABLE 2021-01-15 10:06:00 Shahid Gonzales [facility] / BEDSIDE [place] POCT-GLUCOSE METER 2021-01-15 05:14:00 [facility] REPORT OF PROCEDURE - 2021-01-15 00:00:00 Provider, Lea [facility] ENDOSCOPY SCAN Scanning [place] Plan of Care Planned Activity Planned Date Details Comments Source Future Scheduled 2023-02-[address] [facility] 00:00:00 (Season Ended) [code = Medic al Center Influenza Vaccine (Season Ended)] Future Scheduled 2022-06-[address] [facility] Test 00:00:00 (12+) [code = Medical Center DEPRESSION SCREENING (12+)] Future Scheduled 2022-06-30 FALLS RISK SCREENING [facility] 00:00:00 [code = FALLS RISK Medical C enter SCREENING] Future Scheduled 2022-01-[address] [facility] Test 00:00:00 Counseling and Medical Cente r Screening (12+) [code = Tobacco Cessation Counseling and Screening (12+)] Future Scheduled 2021-02-28 INFLUENZA VACCINE (#1) [facility]00 [code = INFLUENZA Medical Ce nter VACCINE (#1)] Future Scheduled 2021-02-28 INFLUENZA VACCINE (#1) [facility] 00:00:00 [code = INFLUENZA Medical Ce nter VACCINE (#1)] Future Scheduled 2020-06-[address] [facility] Test 00:00:00 (12+) [code = Medical Center DEPRESSION SCREENING (12+)] Future Scheduled 2020-06-30 FALLS RISK SCREENING [facility] Test 00:00:00 [code = FALLS RISK Medical C enter SCREENING] Future Scheduled 2020-06-[address] [facility] Test 00:00:00 (12+) [code = Medical Center DEPRESSION SCREENING (12+)] Future Scheduled 2020-06-30 FALLS RISK SCREENING [facility] 00:00:00 [code = FALLS RISK Medical C enter SCREENING] Future Scheduled 2015-03-[address] [facility] 00:00:00 WELLNESS (YEAR 2 or Medical Center FIRST YEAR if no IPPE) [code = MEDICARE ANNUAL WELLNESS (YEAR 2 or FIRST YEAR if no IPPE)] Future Scheduled 2015-03-[address] [facility] 00:00:00 WELLNESS (YEAR 2 or Medical Center FIRST YEAR if no IPPE) [code = MEDICARE ANNUAL WELLNESS (YEAR 2 or FIRST YEAR if no IPPE)] Future Scheduled 2015-03-[address] [facility] 00:00:00 WELLNESS (YEAR 2 or Medical Center FIRST YEAR if no IPPE) [code = MEDICARE ANNUAL WELLNESS (YEAR 2 or FIRST YEAR if no IPPE)] Future Scheduled 2014 PNEUMOCOCCAL 65+ YRS ([address] [facility] Test 00:00:00 of 1 - [id number] PCV13) [code = PNEUMOCOCCAL 65+ YRS (1 of 1 - [id number] PCV13)] Future Scheduled 2014 PNEUMOCOCCAL 65+ YRS ([address] [facility] Test 00:00:00 of 1 - [id number] Medica l Center PCV13) [code = PNEUMOCOCCAL 65+ YRS (1 of 1 - [id number] PCV13)] Future Scheduled 1999 SHINGLES VACCINES ([address] [facility] 00:00:00 2) [code = SHINGLES [place] VACCINES (1 of 2)] Future Scheduled 1999 SHINGLES VACCINES ([address] [facility] 00:00:00 2) [code = SHINGLES [place] VACCINES (1 of 2)] Future Scheduled 1999 SHINGLES VACCINES ([address] [facility] 00:00:00 2) [code = SHINGLES [place] VACCINES (1 of 2)] Future Scheduled 1968 DTAP/TDAP/TD VACCINES [facility] 00:00:00 (1 - Tdap) [code = Medical C enter DTAP/TDAP/TD VACCINES (1 - Tdap)] Future Scheduled 1968 DTAP/TDAP/TD VACCINES [facility] 00:00:00 (1 - Tdap) [code = Medical C enter DTAP/TDAP/TD VACCINES (1 - Tdap)] Future Scheduled 1968 DTAP/TDAP/TD VACCINES [facility] 00:00:00 (1 - Tdap) [code = Medical C enter DTAP/TDAP/TD VACCINES (1 - Tdap)] Future Scheduled 1967 HEPATITIS C SCREENING [facility] 00:00:00 [code = HEPATITIS C Medical Center SCREENING] Future Scheduled 1967 HEPATITIS C [facility]CRE[facility]ING [facility] 00:00:00 [code = HEPATITIS C Medical Center SCREENING] Future Scheduled 1967 HEPATITIS C [facility]CRE[facility]ING [facility] 00:00:00 [code = HEPATITIS C Medical Center SCREENING] Future Scheduled 1961 COVID-19 VACCINE (1) [facility] 00:00:00 [code = COVID-[address] VACCINE (1)] Future Scheduled 1961 COVID-19 VACCINE (1) [facility] 00:00:00 [code = COVID-[address] VACCINE (1)] Future Scheduled 1955 PNEUMOCOCCAL 65+ YRS ([address] [facility] Test 00:00:00 - PCV) [code = Medical Cente r PNEUMOCOCCAL 65+ YRS (1 - PCV)] Future Scheduled 1949 COVID-19 VACCINE (#1) [facility] 00:00:00 [code = COVID-[address] VACCINE (#1)] Future Scheduled 1949 Screening for malignant [facility] Test 00:00:00 neoplasm of colon Medical Ce nter (procedure) [code = 125407982] Future Scheduled 1949 Screening for malignant [facility] Test 00:00:00 neoplasm of colon Medical Ce nter (procedure) [code = 840527943] Future Scheduled 1949 Screening for malignant [facility] Test 00:00:00 neoplasm of colon Medical Ce nter (procedure) [code = 347603227] Future Scheduled 1949 Screening for malignant [facility] Test 00:00:00 neoplasm of colon Medical Ce nter (procedure) [code = 480977103] Future Scheduled 1949 Screening for malignant [facility] Test 00:00:00 neoplasm of colon Medical Ce nter (procedure) [code = 360989857] Future Scheduled 1949 Sigmoidoscopy [code = [facility] S[facility]] Medical [facility] r Future Scheduled 1949 CT Colonography (combo) [facility] Test 00:00:00 [code = CT Colonography [facility] (combo)] Future Scheduled 1949 Screening for malignant [facility] Test 00:00:00 neoplasm of colon Medical Ce nter (procedure) [code = 662860054] Encounters Start End Encounter Admission Attending Care Care Encounter Source Date/Time Date/Time Type Type Clinicians Facility Department ID 2022-06-17 Outpatient Sher, STLMLC STLMLC [id number] Common 09:34:01 Yandel [facility] 2022-04-12 Outpatient Sher, STLMLC STLMLC [id number] Common 15:41:01 Yandel [facility] 2022-03-12 Outpatient Sher, STLMLC STLMLC [id number] Common 11:23:01 Yandel [facility] 2021-08-27 Outpatient Sher, STLMLC STLMLC [id number] Common 13:43:01 Yandel [facility] 2021-07-26 Outpatient 3 [id number] ENCPL REF [id number] [facility] 12:39:23 0806 [facility] [place] 2021-07-25 Outpatient Sher, STLMLC STLMLC [id number] Common 14:40:21 Yandel [facility] 2021-07-25 Outpatient Sher, STLMLC STLMLC [id number] Common 14:17:42 Yandel 14844 [facility] 2021-07-25 Outpatient Sher, STLMLC STLMLC [id number] Common 14:02:16 Yandel 10208 [facility] 2021-07-25 Outpatient Sher, STLMLC STLMLC [id number] Common 13:53:22 Yandel 01043 [facility] 2021-07-25 Outpatient Sher, STLMLC STLMLC [id number] Common 13:16:34 Yandel 35393 [facility] 2021-07-25 Outpatient Sher, STLMLC STLMLC [id number] Common 12:45:34 Yandel 35967 [facility] 2021-07-25 Outpatient Sher, STLMLC STLMLC [id number] Common 12:44:58 Yandel 44299 [facility] 2021-07-25 Outpatient Sher, STLMLC STLMLC [id number] Common 12:40:54 Yandel 50925 [facility] 2021-07-25 Outpatient Sher, STLMLC STLMLC [id number] Common 12:40:12 Yandel 32594 [facility] 2021-07-25 Outpatient Sher, STLMLC STLMLC [id number] Common 12:34:08 Yandel 13909 [facility] 2021-02-03 Inpatient 3 Khalik, ENCPL PUL [id number] [facility] 01:50:00 Davi [facility] 2021-01-15 Inpatient ER TIP ZAYAS [facility] Medicine [id number] [facility] 03:56:00 2022-06-19 2022-06-19 OFFICE STLMLC STLMLC [id number] Co mmon 00:00:00 00:00:00 [facility] - [facility]I LEVEL [address] [place] [address] 2022-05-16 2022-05-16 OFFICE STLMLC STLMLC [id number] Co mmon 00:00:00 00:00:00 [facility]IT [facility] - CHI LEVEL 4 [facility] 2022-04-15 2022-04-15 OFFICE STLMLC STLMLC [id number] Co mmon 00:00:00 00:00:00 [facility]IT [facility] - CHI LEVEL 4 [facility] 2022-03-13 2022-03-13 OFFICE STLMLC STLMLC [id number] Co mmon 00:00:00 00:00:00 [facility]IT [facility] - CHI LEVEL 4 [facility] 2022-02-12 2022-02-12 OFFICE STLMLC STLMLC [id number] Co mmon 00:00:00 00:00:00 [facility]IT [facility] - CHI LEVEL 4 [facility] 2022-02-12 2022-02-12 (TEL) STLMLC STLMLC [id number] Co mmon 00:00:00 00:00:00 [facility] 2022-01-16 2022-01-16 (TEL) STLMLC STLMLC [id number] Co mmon 00:00:00 00:00:00 [facility] 2022-01-09 2022-01-09 OFFICE STLMLC STLMLC [id number] Co mmon 00:00:00 00:00:00 VISIT [facility] PT - CHI LEVEL 4 [facility] 2022-01-03 2022-01-03 (TEL) STLMLC STLMLC [id number] Co mmon 00:00:00 00:00:00 [facility] 2021-12-26 2021-12-26 (TEL) STLMLC STLMLC [id number] Co mmon 00:00:00 00:00:00 [facility] 2021-11-19 2021-11-19 (TEL) STLMLC STLMLC [id number] Co mmon 00:00:00 00:00:00 [facility] 2021-11-02 2021-11-02 (TEL) STLMLC STLMLC [id number] Co mmon 00:00:00 00:00:00 [facility] 2021-10-24 2021-10-24 OFFICE STLMLC STLMLC [id number] Co mmon 00:00:00 00:00:00 VISIT [facility] PT - CHI LEVEL 4 [facility] 2021-10-09 2021-10-09 (TEL) STLMLC STLMLC [id number] Co mmon 00:00:00 00:00:00 [facility] 2021-08-06 2021-08-06 (TEL) STLMLC STLMLC [id number] Co mmon 00:00:00 00:00:00 [facility] 2021-07-24 2021-07-24 OFFICE STLMLC STLMLC [id number] Co mmon 00:00:00 00:00:00 VISIT [facility] PT - CHI LEVEL 4 [facility] 2021-07-24 2021-07-24 SUB ANNUAL STLMLC STLMLC [id number] Common 00:00:00 00:00:00 MCR [facility] VISIT [facility] 2021-06-25 2021-06-25 (TEL) STLMLC STLMLC [id number] Co mmon 00:00:00 00:00:00 [facility] 2021-06-11 2021-06-11 (TEL) STLMLC STLMLC [id number] Co mmon 00:00:00 00:00:00 [facility] 2021-05-23 2021-05-23 (TEL) STLMLC STLMLC [id number] Co mmon 00:00:00 00:00:00 [facility] 2021-05-23 2021-05-23 OFFICE STLMLC STLMLC [id number] Co mmon 00:00:00 00:00:00 VISIT [facility] LEVEL 4 [facility] 2021-05-14 2021-05-14 (TEL) STLMLC STLMLC [id number] Co mmon 00:00:00 00:00:00 [facility] 2021-04-05 2021-04-05 (TEL) STLMLC STLMLC [id number] Co mmon 00:00:00 00:00:00 [facility] 2021-03-23 2021-03-23 (TEL) STLMLC STLMLC [id number] Co mmon 00:00:00 00:00:00 [facility] 2021-03-21 2021-03-21 (TEL) STLMLC STLMLC [id number] Co mmon 00:00:00 00:00:00 [facility] 2021-03-01 2021-03-01 Outpatient STLMLC STLMLC [id number] Common 00:00:00 00:00:00 [facility] 2021-02-22 2021-02-22 Outpatient STLMLC STLMLC [id number] Common 00:00:00 00:00:00 [facility] 2021-02-20 2021-02-20 Outpatient STLMLC STLMLC [id number] Common 00:00:00 00:00:00 [facility] 2021-01-25 2021-01-25 Outpatient STLMLC STLMLC [id number] Common 00:00:00 00:00:00 [facility] 2021-01-15 2021-01-16 [facility] Tip Zayas [facility] [id number] 03:56:00 16:42:00 [facility] 2021-01-15 2021-01-15 [facility] [place] [facility] [place] [id number] [facility] 00[facility] 00:00:00 [facility] 2020-12-20 2020-12-20 Outpatient STLMLC STLMLC [id number] Common 00:00:00 00:00:00 [facility] 2020-11-18 2020-11-18 Outpatient STLMLC STLMLC [id number] Common 00:00:00 00:00:00 [facility] 2020-10-24 2020-10-24 Outpatient STLMLC STLMLC [id number] Common 00:00:00 00:00:00 [facility] 2020-09-25 2020-09-25 Outpatient STLMLC STLMLC [id number] Common 00:00:00 00:00:00 [facility] 2020-09-25 2020-09-25 Outpatient STLMLC STLMLC [id number] Common 00:00:00 00:00:00 [facility] 2020-09-12 2020-09-12 Outpatient STLMLC STLMLC [id number] Common 00:00:00 00:00:00 [facility] 2020-08-25 2020-08-25 Outpatient STLMLC STLMLC [id number] Common 00:00:00 00:00:00 [facility] Results Test Description Test Time Test Comments Results Result Comments Source HEMOGLOBIN A1C 2022-06-19 00:00:00 Test Item Value Reference Range Interpretation Comme nts A1C (test code = 4548-4) 9.5 HEMOGLOBIN [id number] 00:00:00 Test Item Value Reference Range Interpretation Comments A1C (test code = 4548-4) 9.8 HEMOGLOBIN [id number] 00:00:00 Test Item Value Reference Range Interpretation Comments A1C (test code = 4548-4) 9.4 HEMOGLOBIN [id number] 00:00:00 Test Item Value Reference Range Interpretation Comments A1C (test code = 4548-4) 9.6 HEMOGLOBIN [id number] 00:00:00 Test Item Value Reference Range Interpretation Comments A1C (test code = 4548-4) 9.3 Hemoglobin [id number] 00:00:00 Test Item Value Reference Range Interpretation Comments Hemoglobin A1c (test code = 4548-4) 9.6 POC-Glucose [id number] 11:23:00 Test Item Value Reference Range Interpretation Comments POC-Glucose Meter (test 257 mg/dL 70-110 H : TE STED AT [facility] code = 1538) [address], [place] [address]: Furniture Maker/Techni junito ID = [id number] for Rodríguez, Loyda Lab Interpretation (test Abnormal code = 25831-4) [facility] [id number] 11:23:00 Test Item Value Reference Range Interpretation Comments POC-Glucose Meter (test 257 mg/dL 70-110 H : TE STED AT [facility] code = 1538) [address], [place] [address]: Furniture Maker/Techni junito ID = [id number] for Rodríguez, Loyda Lab Interpretation (test Abnormal code = 29276-8) [facility]SE [id number] 11:23:00 Test Item Value Reference Range Interpretation Comments POC-GLUCOSE METER 257 mg/dL 70-110 H : TESTED A T [facility] (BEAKER) (test code [address], = 1538) [place] [address]: Furniture Maker/Techni junito ID = [id number] for Delg ado, Loyda [id number] 09:19:00 Test Item Value Reference Range Interpretation Comments Procalcitonin (test <0.05 See_Comment [Automa delaney code = 95382-5) message] The system which generated this result transmit delaney reference range : <0.05 ng/mL. Th e reference range was not used to interpret this result as normal/abnormal . STARR (test code = STARR) SEPSIS RISK (ng/mL)Low: 0.05-0.50Inter mediate: 0.51-2.00High: >=2.01 Lab Interpretation Normal (test code = 89811-9) [facility] Hos[id number] 09:19:00 Test Item Value Reference Range Interpretation Comments Procalcitonin (test <0.05 See_Comment [Automa delaney code = 59174-8) message] The system which generated this result transmit delaney reference range : <0.05 ng/mL. Th e reference range was not used to interpret this result as normal/abnormal . STARR (test code = STARR) SEPSIS RISK (ng/mL)Low: 0.05-0.50Inter mediate: 0.51-2.00High: >=2.01 Lab Interpretation Normal (test code = 83140-7) [facility] [id number] 09:19:00 Test Item Value Reference Range Interpretation Comments PROCALCITONIN (BEAKER) (test code = < ng/mL <0.05 3036) SEPSIS RISK (ng/mL)Low: 0.05-0.50Intermediate: 0.51-2.00High: >=2.01RAD, CHEST, 1 VIEW, NON [id number] 08:06:00Reason for exam:->PneumoniaShould this be performed at the bedside?->Yes [facility] 1950 Sex: MFINAL REPORT Chest AP portable erect Comparison exam: 01/15/2021 History provided: Pneumonia Heart size normal. Lungs remain grossly clear and vascularity normal. Signed: Baldemar Montalvo Verified Date/Time: 01/16/2021 08:06:30 Reading Location: [facility] Diagnostic Imaging Reading Room - [place] [address].12 POCT- GLUCOSE [id number] 06:36:00 Test Item Value Reference Range Interpretation Comments POC-GLUCOSE METER 254 mg/dL 70-110 H : TESTED A T [facility] (BEAKER) (test code [address], = 1538) [facility] [address]: Furniture Maker/Techni junito ID = [id number] for Balt ie, Christopher CBC with platelet count + automated [id number] 05:37:00 Test Item Value Reference Range Interpretation Comments WBC (test code = 7.5 See_Comment [Automated message] 6690-2) The system Sporthold generated this result transmitted ref erence range: 4.0 - 10 .0 K/L. The refe rence range was not u sed to interpret this result as normal/abnor mal. RBC (test code = 789-8) 4.49 See_Comment [Au tomated message] The system Sporthold generated this result transmitted ref erence range: 4.20 - 5 .80 M/L. The refe rence range was not u sed to interpret this result as normal/abnor mal. MCHC (test code = 35.0 See_Comment [Automate d message] 786-4) The system Sporthold generated this result transmitted ref erence range: [...] See_Comment [Aut omated message] 777-3) The system Sporthold generated this result transmitted ref erence range: 150 - 43 0 K/CU MM. The referen ce range was not used to interpret this result as normal/abnor mal. MPV (test code = 10.2 fL 6.0-11.5 80881-9) nRBC (test code = 413) 0 See_Comment [Aut omated message] The system Sporthold generated this result transmitted ref erence range: [...] See_Comment [Aut omated message] 670) The system Sporthold generated this result transmitted ref erence range: 1.80 - 8 .00 K/L. The refe rence range was not u sed to interpret this result as normal/abnor mal. # Lymphs (test code = 1.58 See_Comment [Auto mated message] 414) The system Sporthold generated this result transmitted ref erence range: 1.48 - 4 .50 K/L. The refe rence range was not u sed to interpret this result as normal/abnor mal. # Monos (test code = 0.43 See_Comment [Autom ated message] 415) The system Sporthold generated this result transmitted ref erence range: 0.00 - 1 .30 K/L. The refe rence range was not u sed to interpret this result as normal/abnor mal. # Eos (test code = 416) 0.00 See_Comment [Au tomated message] The system Sporthold generated this result transmitted ref erence range: 0.00 - 0 .50 K/L. The refe rence range was not u sed to interpret this result as normal/abnor mal. # Baso (test code = 0.00 See_Comment [Automa delaney message] 417) The system Sporthold generated this result transmitted ref erence range: 0.00 - 0 .20 K/L. The refe rence range was not u sed to interpret this result as normal/abnor mal. Immature 0 % 0-0 Granulocytes-Relative (test code = 2801) [facility] with platelet count + automated [id number] 05:37:00 Test Item Value Reference Range Interpretation Comments WBC (test code = 7.5 See_Comment [Automated message] 6690-2) The system Sporthold generated this result transmitted ref erence range: 4.0 - 10 .0 K/L. The refe rence range was not u sed to interpret this result as normal/abnor mal. RBC (test code = 789-8) 4.49 See_Comment [Au tomated message] The system Sporthold generated this result transmitted ref erence range: 4.20 - 5 .80 M/L. The refe rence range was not u sed to interpret this result as normal/abnor mal. MCHC (test code = 35.0 See_Comment [Automate d message] 786-4) The system Sporthold generated this result transmitted ref erence range: [...] code = 266 See_Comment [Aut omated message] 237-3) The system Sporthold generated this result transmitted ref erence range: 150 - 43 0 K/CU MM. The referen ce range was not used to interpret this result as normal/abnor mal. MPV (test code = 10.2 fL 6.0-11.5 24989-2) nRBC (test code = 413) 0 See_Comment [Aut omated message] The system Sporthold generated this result transmitted ref erence range: [...] See_Comment [Aut omated message] 670) The system Sporthold generated this result transmitted ref erence range: 1.80 - 8 .00 K/L. The refe rence range was not u sed to interpret this result as normal/abnor mal. # Lymphs (test code = 1.58 See_Comment [Auto mated message] 414) The system Sporthold generated this result transmitted ref erence range: 1.48 - 4 .50 K/L. The refe rence range was not u sed to interpret this result as normal/abnor mal. # Monos (test code = 0.43 See_Comment [Autom ated message] 415) The system Sporthold generated this result transmitted ref erence range: 0.00 - 1 .30 K/L. The refe rence range was not u sed to interpret this result as normal/abnor mal. # Eos (test code = 416) 0.00 See_Comment [Au tomated message] The system Sporthold generated this result transmitted ref erence range: 0.00 - 0 .50 K/L. The refe rence range was not u sed to interpret this result as normal/abnor mal. # Baso (test code = 0.00 See_Comment [Automa delaney message] 417) The system Sporthold generated this result transmitted ref erence range: 0.00 - 0 .20 K/L. The refe rence range was not u sed to interpret this result as normal/abnor mal. Immature 0 % 0-0 Granulocytes-Relative (test code = 2801) [facility] W/PLT COUNT & AUTO [id number] 05:37:00 Test Item Value Reference Range Interpretation [...] PERCENT (BEAKER) (test code = 2801) C-Reactive [id number] 05:31:00 Test Item Value Reference Range Interpretation Comments CRP (test code = 676) 3.57 mg/dL 0.00-1.00 H STARR (test code = STARR) Furniture Maker ID - Kemi T Lab Interpretation (test Abnormal code = 17047-9) [facility] [id number] 05:31:00 Test Item Value Reference Range Interpretation Comments CRP (test code = 676) 3.57 mg/dL 0.00-1.00 H STARR (test code = STARR) Furniture Maker ID - Kemi T Lab Interpretation (test Abnormal code = 51662-7) [facility]-REACTIVE [id number] 05:31:00 Test Item Value Reference Range Interpretation Comments C-REACTIVE PROTEIN (BEAKER) (test 3.57 mg/dL 0.00-1.00 H code = 676) Furniture Maker ID - Kemi TBasic Metabolic [id number] 05:29:00 Test Item Value Reference Range Interpretation Comments Sodium (test code = 137 meq/L 444-576 1721-2) Potassium (test code = 3.8 meq/L 3.6-5.5 2823-3) Chloride (test code = 101 meq/L 98-106 2075-0) CO2 (test code = 25 meq/L -29 2028-9) BUN (test code = 25 mg/dL 10-26 3094-0) Creatinine (test code 0.74 mg/dL 0.50-1.20 = 2160-0) Glucose (test code = 273 mg/dL 70-110 H 2345-7) Calcium (test code = 8.2 mg/dL 8.5-10.5 L 55571-0) EGFR (test code = 104 mL/min/1.73 sq m [facility] [address]-8) NOT ACCURATE CREATININE CLEARANCE IN PREDICTING GLOMERULAR FILTRATION RATE . ESTIMATED GFR I S NOT APPLICABLE FOR DIALYSIS PATIENTS. STARR (test code = STARR) Furniture Maker ID - Kemi T Lab Interpretation Abnormal (test code = 02192-8) [facility] Metabolic [id number] 05:29:00 Test Item Value Reference Range Interpretation Comments Sodium (test code = 137 meq/L 876-051 6615-2) Potassium (test code = 3.8 meq/L 3.6-5.5 2823-3) Chloride (test code = 101 meq/L 98-106 2075-0) CO2 (test code = 25 meq/L -29 8-9) BUN (test code = 25 mg/dL - 3094-0) Creatinine (test code 0.74 mg/dL 0.50-1.20 = 2160-0) Glucose (test code = 273 mg/dL 70-110 H 2345-7) Calcium (test code = 8.2 mg/dL 8.5-10.5 L 15061-7) EGFR (test code = 104 mL/min/1.[place] [address]-0) NOT ACCURATE CREATININE CLEARANCE IN PREDICTING GLOMERULAR FILTRATION RATE . ESTIMATED GFR I S NOT APPLICABLE FOR DIALYSIS PATIENTS. STARR (test code = STARR) Furniture Maker KOLBY Mcmullen T Lab Interpretation Abnormal (test code = 42848-5) [facility] METABOLIC [id number] 05:29:00 Test Item Value Reference Range Interpretation [...] S NOT APPLICABLE FOR DIALYSIS PATIEN TS. Furniture Maker KOLBY Mcmullen [id number] 05:19:00 Test Item Value Reference Range Interpretation Comments D-Dimer, Quant (test 0.51 See_Comment H Final I nformation code = 92708-2) (Auto Output ) [Automated message] The system which generated this result transmitted reference range : <0.50 MG/L FEU. The reference range was not used to interpr et this result as normal/abnormal . STARR (test code = REGARDING D-DIMER STARR) RESULTS: The 98% NPV (Negative Predictive Value) for DVT/PE exclusion is 0.50 mg/L FEU as suggested by the core measures abstractor and as approved by the FDA. Lab Interpretation Abnormal (test code = 37260-5) [facility] HospitalD-[id number] 05:19:00 Test Item Value Reference Range Interpretation Comments D-Dimer, Quant (test 0.51 See_Comment H Final I nformation code = 39879-1) (Auto Output ) [Automated message] The system which generated this result transmitted reference range : <0.50 MG/L FEU. The reference range was not used to interpr et this result as normal/abnormal . STARR (test code = REGARDING D-DIMER STARR) RESULTS: The 98% NPV (Negative Predictive Value) for DVT/PE exclusion is 0.50 mg/L FEU as suggested by the core measures abstractor and as approved by the FDA. Lab Interpretation Abnormal (test code = 93791-6) [facility] HospitalD-[id number] 05:19:00 Test Item Value Reference Range Interpretation Comments D-DIMER QUANTITATIVE 0.51 MG/L FEU <0.50 H Final Information (OptisortAKER) (test code = (Auto Output) 671) REGARDING D-DIMER RESULTS: The 98% NPV (Negative Predictive Value) for DVT/PE exclusion is 0.50 mg/LFEU as suggested by the core measures abstractor and as approved by the FDA.[id number] 17:13:00 Test Item Value Reference Range Interpretation Comments PROCALCITONIN ([employer]) (test code = < ng/mL <0.05 3036) SEPSIS RISK (ng/mL)Low: 0.05-0.50Intermediate: 0.51-2.00High: >=2.01POCT- GLUCOSE [id number] 16:51:00 Test Item Value Reference Range Interpretation Comments POC-GLUCOSE METER 223 mg/dL 70-110 H : TESTED A T [facility] ([employer]) (test code [address], = 1538) [facility] [address]: Furniture Maker/Techni junito ID = [id number] for Carmen Kong SARS-CoV2/RT-PCR ([facility])2021-01-15 12:54:00 Test Item Value Reference Range Interpretation Comments SARS-COV2/RT-PCR Positive Negative AA The SARS-Co V-2 (test code = target nucleic 96662-9) acids are detected in this specimen. STARR [...] SARS-CoV-2/Flu/RSV by their healthcare provider. Results from [facility] Xpert Xpress SARS-CoV-2/Flu/RSV test should be [...] the Act. Fact Sheet for Healthcare Providers:https://www .[employer].com/Document s/Xpert%20Xpress%20SA RS%20CoV-2/Fact%20She ets/302-3902%20SARS-C OV-2%20HEALTHCARE%20P ROVIDERS%20FACT%20SHE ET.pdf Fact Sheet for Healthcare Patients:https://www. [employer].com/Documents /Xpert%20Xpress%20SAR S%20Cov-2/Fact%20Shee ts/302-3801%20SARS-CO V-2%20PATIENT%20FACT% 20SHEET.pdf Lab Interpretation Abnormal (test code = 04711-9) [facility])2021-01-15 12:54:00 Test Item Value Reference Range Interpretation Comments SARS-COV2/RT-PCR Positive Negative AA The SARS-Co V-2 (test code = target nucleic 56390-2) acids are detected in this specimen. STARR [...] the Act. Fact Sheet for Healthcare Providers:https://www .[employer]/Document s/Xpert%20Xpress%20SA RS%20CoV-2/Fact%20She ets/302-3902%20SARS-C OV-2%20HEALTHCARE%20P ROVIDERS%20FACT%20SHE ET.pdf Fact Sheet for Healthcare Patients:https://www. [employer]/Documents /Xpert%20Xpress%20SAR S%20Cov-2/Fact%20Shee ts/302-3801%20SARS-CO V-2%20PATIENT%20FACT% 20SHEET.pdf Lab Interpretation Abnormal (test code = 52884-7) [facility])2021-01-15 12:54:00 Test Item Value Reference Range Interpretation Comments SARS-COV2/RT-PCR Positive Negative AA The SARS-Co V-2 target (test code = 3428627) nuclei c acids are detected in thi [...] below the analytical limit of detection in thisspecimen.This Xpert Xpress SARS-CoV-2/Flu/RSV test is a rapid, real-time RT-PCR test intended for the qualitative detection of nucleic acid from Xpert Xpress SARS-CoV-2/Flu/RSV in a nasopharyngeal swabspecimen collected from individuals suspected of Xpert Xpress SARS-CoV-2/Flu/RSV by their healthcareprovider. Results from [facility] Xpert Xpress SARS-CoV-2/Flu/RSV test should be correlated with the clinical history, epidemiological data, and other data available to the clinician evaluating the patient. Viral nucleic acid may persist in vivo, independent of virus viability. Detection of analyte target(s)does not imply that the corresponding virus(es) are infectious or are the causative agents for clinical symptoms.This test has not been Food and Drug Administration (FDA) cleared or approved and has been authorized by FDA under an Emergency Use Authorization (EUA). This EUA will be effective until thedeclaration that circumstances exist justifying the authorization of the emergency use of in vitro diagnostic tests for detection and/or diagnosis of COVID-19 is terminated under Section 564(b)(2) of the Act or the EUA is revoked under Section 564(g) of the Act.Fact Sheet for Healthcare Providers:https ://www.[employer]/Documents/Xpert%20Xpress%20SARS%20CoV-2/Fact%20Sheets/302-390 2%54MPRK-HCU-4%20HEALTHCARE%20PROVIDERS%20FACT%20SHEET.pdfFact Sheet for Healthcare Patients:https://www.[employer]/Docum ents/Xpert%20Xpress%20SARS%20Cov-2/Fact%20Sheets/302-3801%72ZNQZ-WUY-2%20PATIENT %20FACT%20SHEET.pdfManual Dbppbthemwcs0773-14-86 12:19:00 Test Item Value Reference Range Interpretation [...] utomated message] code = 1365) The system Sporthold generated this result transmitted ref erence range: 1.80 - 8 .00 K/L. The refe rence range was not u sed to interpret this result as normal/abnor mal. # Lymphs (manual) (test 1.06 See_Comment L [Au tomated message] code = 1366) The system S[employer]th[employer] generated this result transmitted ref erence range: 1.48 - 4 .50 K/L. The refe rence range was not u sed to interpret this result as normal/abnor mal. # Monos (manual) (test 0.32 See_Comment [Aut omated message] code = 1367) The system Sporthold generated this result transmitted ref erence range: 0.00 - 1 .30 K/L. The refe rence range was not u sed to interpret this result as normal/abnor mal. # Eos (manual) (test 0.11 See_Comment [Autom ated message] code = 1368) The system S[employer]thold generated this result transmitted ref erence range: 0.00 - 0 .50 K/L. The refe rence range was not u sed to interpret this result as normal/abnor mal. # Bands (manual) (test 0.5 See_Comment [Aut omated message] code = 1349) The system Sporthold generated this result transmitted ref erence range: [...] 762) Lab Interpretation (test Abnormal code = 58091-2) [facility] [id number] 12:19:00 Test Item Value Reference Range Interpretation [...] utomated message] code = 1365) The system Sporthold generated this result transmitted ref erence range: 1.80 - 8 .00 K/L. The refe rence range was not u sed to interpret this result as normal/abnor mal. # Lymphs (manual) (test 1.06 See_Comment L [Au tomated message] code = 1366) The system S[employer] generated this result transmitted ref erence range: 1.48 - 4 .50 K/L. The refe rence range was not u sed to interpret this result as normal/abnor mal. # Monos (manual) (test 0.32 See_Comment [Aut omated message] code = 1367) The system S[employer]thold generated this result transmitted ref erence range: 0.00 - 1 .30 K/L. The refe rence range was not u sed to interpret this result as normal/abnor mal. # Eos (manual) (test 0.11 See_Comment [Autom ated message] code = 1368) The system Sporthold generated this result transmitted ref erence range: 0.00 - 0 .50 K/L. The refe rence range was not u sed to interpret this result as normal/abnor mal. # Bands (manual) (test 0.5 See_Comment [Aut omated message] code = 1349) The system [employer] generated this result transmitted ref erence range: [...] 762) Lab Interpretation (test Abnormal code = 02025-9) [facility] W/PLT COUNT & AUTO [id number] 12:19:00 Test Item Value Reference Range Interpretation [...] (test code Normal = 762) Comprehensive metabolic [id number] 12:14:00 Test Item Value Reference Range Interpretation Comments Protein, Total (test 7.0 See_Comment [Autom ated code = 2885-2) message] The system which generated this result transmit delaney reference range : 6.0 - 8.5 gm/dL . The reference range was not u sed to interpret th is result as normal/abnormal . Albumin (test code = 3.7 g/dL 3.5-5.0 40060-1) Alkaline Phosphatase 62 U/L 30-115 (test code = 6768-6) Total Bilirubin (test 1.0 mg/dL 0.1-1.2 code = 1975-2) Sodium (test code = 134 meq/L 135-148 L 2951-2) Potassium (test code 3.9 meq/L 3.6-5.5 = 2823-3) Chloride (test code = 98 meq/L 98-106 2075-0) CO2 (test code = 22 meq/L 20-29 2028-9) BUN (test code = 25 mg/dL 10-26 3094-0) Creatinine (test code 0.78 mg/dL 0.50-1.20 = 2160-0) Glucose (test code = 299 mg/dL 70-110 H 2345-7) Calcium (test code = 8.3 mg/dL 8.5-10.5 L 67263-8) AST (test code = 60 U/L 5-40 H 1920-8) ALT (test code = 56 U/L 5-50 H 1742-6) EGFR (test code = 98 mL/min/1.73 [place] [address]-4) NOT ACCURATE CREATININE CLEARANCE IN PREDICTING GLOMERULAR FILTRATION RATE . ESTIMATED GFR I S NOT APPLICABLE FOR DIALYSIS PATIEN TS. STARR (test code = STARR) Furniture Maker ID - [id number] Lab Interpretation Abnormal (test code = 25529-3) [facility] [id number] 12:14:00 Test Item Value Reference Range Interpretation Comments Protein, Total (test 7.0 See_Comment [Autom ated code = 2885-2) message] The system which generated this result transmit delaney reference range : 6.0 - 8.5 gm/dL . The reference range was not u sed to interpret th is result as normal/abnormal . Albumin (test code = 3.7 g/dL 3.5-5.0 47449-4) Alkaline Phosphatase 62 U/L 30-115 (test code = 6768-6) Total Bilirubin (test 1.0 mg/dL 0.1-1.2 code = 1974-2) Sodium (test code = 134 meq/L 135-148 L 2951-2) Potassium (test code 3.9 meq/L 3.6-5.5 = 2823-3) Chloride (test code = 98 meq/L 98-106 2075-0) CO2 (test code = 22 meq/L 20-29 2028-9) BUN (test code = 25 mg/dL 10-26 3094-0) Creatinine (test code 0.78 mg/dL 0.50-1.20 = 2160-0) Glucose (test code = 299 mg/dL 70-110 H 2345-7) Calcium (test code = 8.3 mg/dL 8.5-10.5 L 54905-8) AST (test code = 60 U/L 5-40 H 1920-8) ALT (test code = 56 U/L 5-50 H 1742-6) EGFR (test code = 98 mL/min/1.[place] [address]-0) NOT ACCURATE CREATININE CLEARANCE IN PREDICTING GLOMERULAR FILTRATION RATE . ESTIMATED GFR I S NOT APPLICABLE FOR DIALYSIS PATIEN TS. STARR (test code = STARR) Furniture Maker ID - [id number] Lab Interpretation Abnormal (test code = 00654-7) [facility] [id number] 12:14:00 Test Item Value Reference Range Interpretation [...] S NOT APPLICABLE FOR DIALYSIS PATIEN TS. Furniture Maker ID - NLYLEC-REACTIVE [id number] 12:13:00 Test Item Value Reference Range Interpretation Comments C-REACTIVE PROTEIN (BEAKER) (test 7.18 mg/dL 0.00-1.00 H code = 676) Furniture Maker ID - [id number] 12:06:00 Test Item Value Reference Range Interpretation Comments D-DIMER QUANTITATIVE 0.77 MG/L FEU <0.50 H Final Information (ROBINSON) (test code = (Auto Output) 671) REGARDING D-DIMER RESULTS: The 98% NPV (Negative Predictive Value) for DVT/PE exclusion is 0.50 mg/LFEU as suggested by the core measures abstractor and as approved by the FDA.RAD, CHEST, 1 VIEW, NON [id number] 10:20:00Reason for exam:- >PneumoniaShould this be performed at the bedside?->Yes [facility] 1950 Sex: MFINAL REPORT INDICATION: Pneumonia COMPARISON: None TECHNIQUE: Single frontal view of the chest. FINDINGS: Lungs and pleura: Clear lungs. No effusion.Heart and mediastinum: Normal heart size. Unremarkable mediastinal contours.Osseous structures: No acute abnormality.Other: None. IMPRESSION: No acute intrathoracic abnormality. Signed: Swathi Tsai Verified Date/Time: 01/15/2021 10:20:10 Reading Location: [facility] Radiology Reading Room POCT-GLUCOSE [id number] 05:26:00 Test Item Value Reference Range Interpretation Comments POC-GLUCOSE METER 260 mg/dL 70-110 H : TESTED A T [facility] (BEBRENDA) (test code [address], = 1538) [facility] 7707 0: Furniture Maker/Techni junito ID = [id number] for Kris Toussaint
[2022-12-16] MEDS ORDERED: ACETAMINOPHEN 500 MG TAB ONE (11:11)
[2022-12-16] MEDS ORDERED: NA CHLORIDE 0.9% 2,000 ML ONE (11:11)
[2022-12-16 11:28] LABS: Absolute Lymphocytes (CBC) 1.6 K/uL (0.7-4.9); Lymphocytes % 9.5 % (15.3-44.8); MCV 91.6 fL (80-100); MPV 8.3 fL (7.6-11.3); RBC Red Blood Cell Count 4.04 M/uL (4.33-5.43)
[2022-12-16 11:29] LABS: Protime INR 1.29
[2022-12-16] MEDS ORDERED: ONDANSETRON 4 MG/2 ML VIAL ONE (11:37)
[2022-12-16 11:40] LABS: Albumin 3.1 g/dL (3.4-5.0); Potassium 3.4 mEq/L (3.5-5.1); Protein, Total 7.6 g/dL (6.4-8.2)
[2022-12-16 11:57] LABS: SARS-CoV-2 Antigen Rapid Res Negative (Negative)
--- NOTE | 2022-12-16 12:05 | RAD REPORT ---
EXAM DESCRIPTION: Joseph Single View12/16/2022 11:54 am CLINICAL HISTORY: Fever COMPARISON: 2021 FINDINGS: Right base is mildly hazy. Left lung appears clear of acute infiltrate. Heart is normal size IMPRESSION: Right base is mildly hazy which may indicate a mild infiltrate
--- NOTE | 2022-12-16 12:40 | ER ---
Nurse's Notes [facility] Name: Chapo Burr Age: 72 yrs Sex: Male : 1950 Arrival Date: 12/16/2022 Time: 10:50 Bed 7 Private MD: Diagnosis: Sepsis, urinary tract infection, pneumonia Presentation: 12/16 10:51 Chief complaint: EMS states: generalized weakness with n/v/d and fever. pt states his kc6 urine has a smell. Coronavirus screen: At this time, the client does not indicate any symptoms associated with coronavirus-19. Ebola Screen: No symptoms or risks identified at this time. Initial Sepsis Screen: Does the patient meet any 2 criteria? No. Patient's initial sepsis screen is negative. Does the patient have a suspected source of infection? No. Patient's initial sepsis screen is negative. Risk Assessment: Do you want to hurt yourself or someone else? Patient reports no desire to harm self or others. Onset of symptoms was December 16, 2022. 10:51 Method Of Arrival: EMS: [facility] kc6 10:51 Acuity: JANES 3 kc6 Triage Assessment: 10:52 General: Appears in no apparent distress. comfortable, Behavior is calm, cooperative, kc6 appropriate for age. Pain: Denies pain. EENT: No signs and/or symptoms were reported regarding the EENT system. Neuro: Level of Consciousness is awake, alert, obeys commands, Oriented to person, place, time, situation, Appropriate for age. Cardiovascular: Capillary refill < 3 seconds. Respiratory: Airway is patent Trachea midline Respiratory effort is even, unlabored, Respiratory pattern is regular, symmetrical. GI: Reports diarrhea, nausea, vomiting. : Reports foul smelling urine. Derm: No signs and/or symptoms reported regarding the dermatologic system. Skin is intact, Skin is pink, warm \T\ dry. Musculoskeletal: No signs and/or symptoms reported regarding the musculoskeletal system. Circulation, motion, and sensation intact. Capillary refill < 3 seconds, Range of motion: intact in all extremities. Historical: - Allergies: 10:52 No Known Allergies; kc6 - PMHx: 10:52 diabetes mellitus; Hypothyroidism; kc6 - PSHx: 10:52 Tonsillectomy; kc6 - Immunization history:: Client reports having NOT received the Covid vaccine. Flu vaccine is not up to date. - Social history:: Smoking status: Patient denies any tobacco usage or history of. Screenin:51 [facility] ED Fall Risk Assessment (Adult) History of falling in the last 3 months, kc6 including since admission No falls in past 3 months (0 pts) Confusion or Disorientation No (0 pts) Intoxicated or Sedated No (0 pts) Impaired Gait No (0 pts) Mobility Assist Device Used No (0 pt) Altered Elimination No (0 pt) Score/Fall Risk Level 0 - 2 = Low Risk Oriented to surroundings, Maintained a safe environment, Educated pt \T\ family on fall prevention, incl call for assistance when getting out of bed, Assessed \T\ reinforced patient's understanding of fall precautions, Hourly rounding (assess needs \T\ fall precautionary measures) done. Abuse screen: Denies threats or abuse. Denies injuries from another. Nutritional screening: No deficits noted. Tuberculosis screening: No symptoms or risk factors identified. Assessment: 10:51 Reassessment: please see triage assessment. kc 11:51 Reassessment: Patient appears in no apparent distress at this time. No changes from [facility] previously documented assessment. Patient and/or family updated on plan of care and expected duration. Pain level reassessed. Patient is alert, oriented x 3, equal unlabored respirations, skin warm/dry/pink. 12:51 Reassessment: Patient appears in no apparent distress at this time. No changes from [facility] previously documented assessment. Patient and/or family updated on plan of care and expected duration. Pain level reassessed. Patient is alert, oriented x 3, equal unlabored respirations, skin warm/dry/pink. Vital Signs: 10:51 BP 142 / 63; Pulse 84; Resp 19 S; Temp 99.6(O); Pulse Ox 97% on R/A; Weight 90.72 kg kc6 (R); Height 5 ft. 10 in. (R); 12:14 BP 121 / 53; Pulse 74; Temp 99.2(O); Pulse Ox 97% on R/A; kc6 13:42 BP 111 / 57; Pulse 68; Resp 16 S; Pulse Ox 95% on R/A; kc6 10:51 Body Mass Index 28.70 (90.72 kg, 177.8 cm) [facility] ED Course: 10:51 Patient arrived in ED. kc6 10:51 Gabbi Sher MD is Attending Physician. sp3 10:51 Patient has correct armband on for positive identification. Placed in gown. Bed in low kc6 position. Call light in reach. Side rails up X2. 10:51 Arm band placed on. kc6 10:52 Triage completed. kc6 10:54 Jamee Baldwin, RN is Primary Nurse. kc6 11:15 Initial lab(s) drawn, by ks, sent to lab. First set of blood cultures drawn. Inserted em1 saline lock: 20 gauge in right forearm, using aseptic technique. Blood collected. 11:23 SARS RAPID Sent. em1 11:23 Flu Sent. em1 11:23 Blood Culture Adult (2) Sent. em1 11:23 CBC with Diff Sent. em1 11:23 CMP Sent. em1 11:23 Lactate w/ 2H reflex if indic. Sent. em1 11:23 Protime (+inr) Sent. em1 11:23 Ptt, Activated Sent. em1 11:23 Urinalysis w/ reflexes Sent. em1 11:43 EKG done, by ED staff, reviewed by Gabbi Sher MD. em1 11:56 Chest Single View XRAY In Process Unspecified. EDMS 12:40 Lang Gunter is Hospitalizing Provider. sp3 14:59 No provider procedures requiring assistance completed. Patient admitted, IV remains in kc6 place. Administered Medications: 11:05 Drug: Acetaminophen PO 1000 mg Route: PO; kc6 12:36 Follow up: Response: No adverse reaction; Temperature is decreased kc6 11:38 Drug: NS 0.9% IV (30 ml/kg) 30 ml/kg Route: IV; Rate: bolus; Site: right forearm; kc6 13:43 Follow up: Response: No adverse reaction; IV Status: Completed infusion; IV Intake: kc6 2000ml 11:38 Drug: Ondansetron IVP 4 mg Route: IVP; Site: right forearm; kc6 12:37 Follow up: Response: No adverse reaction; Nausea is decreased; Vomiting decreased kc6 12:56 Drug: Cefepime IVPB 2 grams Route: IVPB; Rate: 200 ml/hr; Infused Over: 30 mins; Site: iw right forearm; 13:40 Follow up: Response: No adverse reaction; IV Status: Completed infusion; IV Intake: kc6 100ml 13:40 Drug: vancoMYCIN IVPB 1 grams Route: IVPB; Infused Over: 2 hrs; Site: right forearm; kc Medication: 15:00 VIS not applicable for this client. kc6 Intake: 13:40 IV: 100ml; Total: 100ml. kc6 13:43 IV: 2000ml; Total: 2100ml. kc6 Outcome: 12:40 Decision to Hospitalize by Provider. spAlda 15:00 Admitted to Med/surg accompanied by tech, via wheelchair, with chart, Report called to cheko Gilbert RN 15:00 Condition: stable 15:00 Instructed on the need for admit. 15:00 Patient left the ED. cheko Signatures: Dispatcher [employer] Gwendolyn Duanway, RN RN Darvin Canas Setul, MD MD sp3 Jamee Baldwin RN RN kc6
--- NOTE | 2022-12-16 12:40 | EDPHYS ---
Physician Documentation [facility] Name: Chapo Burr Age: 72 yrs Sex: Male : 1950 Arrival Date: 12/16/2022 Time: 10:50 Bed 7 Private MD: ED Physician Gabbi Sher HPI: 12/16 11:40 This 72 yrs old Male presents to ER via EMS with complaints of Fever. sp3 11:40 72-year-old male with a history of diabetes, hypothyroidism presents via EMS for chief sp3 complaint generalized weakness and fever with Tmax 104 at home and 102 for EMS. Patient also states he has had foul-smelling urine over the last several days. Patient also states he had mild abdominal pain earlier which is now resolved. He denies any headache, neck pain, chest pain, shortness of breath, cough, URI symptoms, lower abdominal pain rash, vomiting or diarrhea, known sick contacts, travel history, or any other signs or symptoms on ROS at this time.. Historical: - Allergies: 10:52 No Known Allergies; kc6 - PMHx: 10:52 diabetes mellitus; Hypothyroidism; kc6 - PSHx: 10:52 Tonsillectomy; kc6 - Immunization history:: Client reports having NOT received the Covid vaccine. Flu vaccine is not up to date. - Social history:: Smoking status: Patient denies any tobacco usage or history of. ROS: 11:42 Eyes: Negative for injury, pain, redness, and discharge, ENT: Negative for injury, sp3 pain, and discharge, Neck: Negative for injury, pain, and swelling, Cardiovascular: Negative for chest pain, palpitations, and edema, Respiratory: Negative for shortness of breath, cough, wheezing, and pleuritic chest pain, Back: Negative for injury and pain, MS/Extremity: Negative for injury and deformity, Skin: Negative for injury, rash, and discoloration, Neuro: Negative for headache, weakness, numbness, tingling, and seizure. 11:42 All other systems are negative. Exam: 11:42 Constitutional: This is a well developed, well nourished patient who is awake, alert, sp3 and in no acute distress. Head/Face: Normocephalic, atraumatic. Eyes: Pupils equal round and reactive to light, extra-ocular motions intact. Lids and lashes normal. Conjunctiva and sclera are non-icteric and not injected. Cornea within normal limits. Periorbital areas with no swelling, redness, or edema. ENT: Nares patent. No nasal discharge, no septal abnormalities noted. External auditory canals are clear. Oropharynx with no redness, swelling, or masses, exudates, or evidence of obstruction, uvula midline. Mucous membranes moist. Neck: Trachea midline, no thyromegaly or masses palpated, and no cervical lymphadenopathy. Supple, full range of motion without nuchal rigidity, or vertebral point tenderness. No Meningismus. Chest/axilla: Normal chest wall appearance and motion. Nontender with no deformity. No lesions are appreciated. Cardiovascular: Regular rate and rhythm with a normal S1 and S2. No gallops, murmurs, or rubs. Normal PMI, no JVD. No pulse deficits. Respiratory: Lungs have equal breath sounds bilaterally, clear to auscultation and percussion. No rales, rhonchi or wheezes noted. No increased work of breathing, no retractions or nasal flaring. Back: No spinal tenderness. No costovertebral tenderness. Full range of motion. Skin: Warm, dry with normal turgor. Normal color with no rashes, no lesions, and no evidence of cellulitis. MS/ Extremity: Pulses equal, no cyanosis. Neurovascular intact. Full, normal range of motion. Neuro: Awake and alert, GCS 15, oriented to person, place, time, and situation. Cranial nerves II-XII grossly intact. Motor strength 5/5 in all extremities. Sensory grossly intact. Cerebellar exam normal. Normal gait. Psych: Awake, alert, with orientation to person, place and time. Behavior, mood, and affect are within normal limits. 11:42 ECG was reviewed by the Attending Physician. EKG demonstrates normal sinus rhythm at 89 bpm with normal intervals, normal axis, normal QRS, nonspecific diffuse ST/T changes without evidence of acute ischemia. Vital Signs: 10:51 BP 142 / 63; Pulse 84; Resp 19 S; Temp 99.6(O); Pulse Ox 97% on R/A; Weight 90.72 kg kc6 (R); Height 5 ft. 10 in. (R); 12:14 BP 121 / 53; Pulse 74; Temp 99.2(O); Pulse Ox 97% on R/A; kc6 13:42 BP 111 / 57; Pulse 68; Resp 16 S; Pulse Ox 95% on R/A; kc6 10:51 Body Mass Index 28.70 (90.72 kg, 177.8 cm) [facility] MDM: 10:51 Patient medically screened. sp3 11:43 Data reviewed: vital signs, nurses notes, EMS record, old medical records, lab test sp3 result(s), EKG, radiologic studies. ED course: 72-year-old male with history of diabetes now comes in for fever and generalized weakness. Patient likely has UTI with urosepsis. Will obtain sepsis work-up including chest x-ray, laboratory values, lactate, cultures, urinalysis and also administer IV fluids and antibiotics as indicated. Patient will be admitted to hospitalist service once work-up is complete.. 12:39 ED course: Possible pulmonary infiltrate and per history urine is likely also infected. sp3 UA still pending. Started cefepime and vancomycin and inpatient team can take it from there.. 12/16 10:52 Order name: Blood Culture Adult (2) 3 12/16 10:52 Order name: CBC with Diff; Complete Time: 12:30 sp3 12/16 10:52 Order name: CMP; Complete Time: 12:30 3 12/16 10:52 Order name: Lactate w/ 2H reflex if indic.; Complete Time: 12:30 sp3 12/16 10:52 Order name: Protime (+inr); Complete Time: 12:30 sp3 12/16 10:52 Order name: Ptt, Activated; Complete Time: 12:30 3 12/16 10:52 Order name: Urinalysis w/ reflexes sp3 12/16 10:52 Order name: Flu; Complete Time: 12:30 sp3 12/16 10:52 Order name: SARS RAPID; Complete Time: 12:30 sp3 12/16 10:52 Order name: Chest Single View XRAY; Complete Time: 12:30 3 12/16 10:52 Order name: EKG; Complete Time: 10:53 sp3 12/16 13:28 Order name: [facility] 12/16 10:52 Order name: Accucheck; Complete Time: 11:28 3 12/16 10:52 Order name: Cardiac monitoring; Complete Time: 11:00 sp3 12/16 10:52 Order name: EKG - Nurse/Tech; Complete Time: 11: sp3 12/16 10:52 Order name: IV Saline Lock - Large Bore; Complete Time: sp3 12/16 10:52 Order name: Labs collected and sent; Complete Time: sp3 12/16 10:52 Order name: O2 Per Protocol; Complete Time: : sp3 12/16 10:52 Order name: O2 Sat Monitoring; Complete Time: : sp3 12/16 10:52 Order name: Vital Signs; Complete Time: : sp3 Administered Medications: 11:05 Drug: Acetaminophen PO 1000 mg Route: PO; kc6 12:36 Follow up: Response: No adverse reaction; Temperature is decreased kc6 11:38 Drug: NS 0.9% IV (30 ml/kg) 30 ml/kg Route: IV; Rate: bolus; Site: right forearm; kc6 13:43 Follow up: Response: No adverse reaction; IV Status: Completed infusion; IV Intake: kc6 2000ml 11:38 Drug: Ondansetron IVP 4 mg Route: IVP; Site: right forearm; kc6 12:37 Follow up: Response: No adverse reaction; Nausea is decreased; Vomiting decreased kc6 12:56 Drug: Cefepime IVPB 2 grams Route: IVPB; Rate: 200 ml/hr; Infused Over: 30 mins; Site: iw right forearm; 13:40 Follow up: Response: No adverse reaction; IV Status: Completed infusion; IV Intake: kc6 100ml 13:40 Drug: vancoMYCIN IVPB 1 grams Route: IVPB; Infused Over: 2 hrs; Site: right forearm; kc6 Disposition Summary: 12/16/22 12:40 Hospitalization Ordered Hospitalization Status: Inpatient Admission sp3 Provider: Lang Gunter sp3 Location: Telemetry/MedSur (Inpatient) sp3 Condition: Stable sp3 Problem: an acute exacerbation sp3 Symptoms: have worsened sp3 Bed/Room Type: Standard sp3 Room Assignment: 206(12/16/22 13:58) bd Diagnosis - Sepsis, urinary tract infection, pneumonia sp3 Forms: - Medication Reconciliation Form sp3 - SBAR form sp3 Signatures: Dispatcher [employer] Dang Landa Irene, RN RN iw Gabbi Sher MD MD sp3 Jamee Baldwin RN RN kc6 Corrections: (The following items were deleted from the chart) 13:58 12:40 sp3 jasmin
[2022-12-16] MEDS ORDERED: NA CHLORIDE 0.9% 100 ML ONE (12:48)
[2022-12-16] MEDS ORDERED: NA CHLORIDE 0.9% 250 ML ONE (12:48)
[2022-12-16] MEDS ORDERED: VANCOMYCIN 1 GM/VIAL ONE (12:48)
[2022-12-16] MEDS ORDERED: CEFEPIME 2 GM VIAL ONE (12:48)
[2022-12-16 13:09] LABS: Specific Gravity > 1.030 (1.005-1.030); Urine Bacteria <20 /HPF (<20); Urine Bilirubin NEGATIVE (Negative); Urine Blood 3+ (Negative); Urine Clarity Turbid (Clear); Urine Color Yellow (Yellow); Urine Glucose 4+ (Over) (Negative); Urine Mucus Slight /HPF (None Seen); Urine Protein 3+ (Negative); Urine Urobilinogen Normal (Normal); Urine pH 5.5 (5.0-7.0)
[2022-12-16] MEDS ORDERED: ONDANSETRON 4 MG/2 ML VIAL IV PRN (14:49)
[2022-12-16] MEDS ORDERED: ALBUTEROL 2.5 MG/3 ML NEB SOL NEB PRN ×2 (14:49→17:00)
[2022-12-16] MEDS ORDERED: D50W 25 GM/50 ML SYRINGE IV PRN (14:51)
[2022-12-16] MEDS ORDERED: GLUCAGON 1 MG/VIAL IM PRN (14:51)
--- NOTE | 2022-12-16 14:52 | P.HP ---
Certification for Inpatient Patient admitted to: Inpatient With expected LOS: >2 Midnights Patient will require the following post-hospital care: None Practitioner: I am a practitioner with admitting privileges, knowledge of patient current condition, hospital course, and medical plan of care. Services: Services provided to patient in accordance with Admission requirements found in Title 42 Section 412.3 of the Code of Federal Regulations Patient History Date of Service: 12/16/22 Reason for admission: Fever, generalized weakness History of Present Illness: Patient is a 72-year-old male with a past medical history significant for DM 2, hypothyroidism who presents with complaint of fever and generalized weakness that has been ongoing for the past 4 days. Patient reported associated signs and symptoms of cough, nausea and vomiting. Patient denies any other signs and symptoms. Symptoms are aggravated or relieved by nothing. Patient decided to present to the hospital due to worsening symptoms. Allergies No Known Allergies Allergy (Verified 01/22/21 12:43) Home Medications: Gabapentin [Neurontin*] 100 mg PO DAILY 01/24/21 Metformin HCl [Glucophage*] 500 mg PO BID 01/24/21 Apixaban [Eliquis] 10 mg PO BID #70 tablet 01/25/21 Cefdinir [Omnicef] 300 mg PO BID #20 capsule 01/25/21 - Past Medical/Surgical History -: Type 2 diabetes -: Hypothyroidism -: Tonsillectomy - Family History Father History Unknown: Yes Mother -: Cancer - Social History Smoking Status: Never smoker Alcohol use: No CD- Drugs: No Caffeine use: No Place of Residence: Home Review of Systems General: Fever, Weakness Eyes: Unremarkable ENT: Unremarkable Respiratory: Cough Cardiovascular: Unremarkable Gastrointestinal: Nausea, Vomiting Genitourinary: Unremarkable Musculoskeletal: Unremarkable Integumentary: Unremarkable Neurological: Unremarkable Lymphatics: Unremarkable Physical Examination - Physical Exam General: Alert, In no apparent distress, Oriented x3, Cooperative HEENT: Atraumatic, PERRLA, Mucous membr. moist/pink, EOMI, Sclerae nonicteric Neck: Supple, 2+ carotid pulse no bruit, No LAD, Without JVD or thyroid abnormality Respiratory: Normal air movement, Diminished Cardiovascular: No edema, Regular rate/rhythm, Normal S1 S2 Capillary refill: <2 Seconds Gastrointestinal: Normal bowel sounds, No tenderness Musculoskeletal: No clubbing, No swelling, No tenderness Integumentary: No rashes Neurological: Normal speech, Normal tone, Normal affect Lymphatics: No axilla or inguinal lymphadenopathy - Studies Laboratory Data (last 24 hrs) 12/16/22 11:15: PT 14.2 H, INR 1.29, APTT 28.1 12/16/22 11:15: Sodium 127 L, Potassium 3.4 L, BUN 21 H, Creatinine 1.06, Glucose 266 H, Total Bilirubin 1.0, AST 19, ALT 23, Alkaline Phosphatase 59 12/16/22 11:15: WBC 16.90 H, Hgb 12.4 L, Hct 37.0 L, Plt Count 313 Microbiology Data (last 24 hrs): 12/16/22 11:20 Nasopharnyx Influenza Type A Antigen Screen - Final 12/16/22 11:20 Nasopharnyx Influenza Type B Antigen Screen - Final Assessment and Plan - Plan --Pneumonia. Chest x-ray indicates Right base is mildly hazy which may indicate a mild infiltrate. CT chest for further evaluation. Patient placed on antibiotics, antitussives and neb treatment with albuterol as needed. --DM2 with hyperglycemia. BS monitoring with sliding scale insulin. --Hypokalemia. Replete as needed. --Anemia of chronic disease. H&H stable. We will continue to monitor hemoglobin and transfuse if less than 7.0. --Nausea and vomiting. Antiemetics on board. Continue supportive care. --CKD 2. Stable. We will continue to monitor renal functions. --Hyponatremia. Urine sodium, serum\urine osmolality and urine potassium pending for further evaluation. Repeat levels pending. Further management based on results. --DVT prophylaxis with Lovenox subQ. Discharge Plan: Home Plan to discharge in: Greater than 2 days - Advance Directives Does patient have a Living Will: No Does patient have a Durable POA for Healthcare: No - Code Status/Comfort Care Code Status Assessed: Yes Physician Review: Patient Assessed, Agree with Above Assessment and Plan Critical Care: No
[2022-12-16] MEDS ORDERED: D10W 125 ML IV PRN (14:58)
[2022-12-16 15:19] VITALS: BMI 28.7
[2022-12-16 15:30] LABS: Phosphorus 1.6 mg/dL (2.5-4.9); Thyroid Stimulating Hormone 2.52 uIU/mL (0.358-3.740)
[2022-12-16] MEDS ORDERED: POTASSIUM CL SA 10 MEQ TAB PO ONE (16:49)
[2022-12-16] MEDS: INSULIN -REGULAR HUMAN 50 UNIT/0.5 ML ML SQ SCH ×2 (17:00→20:01)
[2022-12-16] MEDS ORDERED: GUAIFENESIN/CODEINE 5ML UCUP PO PRN (17:22)
[2022-12-16] MEDS: ACETAMINOPHEN 325 MG TABLET PO PRN (18:02)
[2022-12-16] MEDS: ENOXAPARIN 40 MG/0.4 ML SQ SCH (18:06)
[2022-12-16 18:26] LABS: Potassium 3.6 mEq/L (3.5-5.1)
[2022-12-16 19:57] LABS: UR SODIUM < 15 mmol/L (27-287)
[2022-12-16 19:59] LABS: Specific Gravity > 1.030 (1.005-1.030); Urine Bacteria <20 /HPF (<20); Urine Bilirubin NEGATIVE (Negative); Urine Blood 3+ (Negative); Urine Clarity Turbid (Clear); Urine Color Yellow (Yellow); Urine Glucose 4+ (Over) (Negative); Urine Mucus Slight /HPF (None Seen); Urine Protein 2+ (Negative); Urine RBC 21-50 /HPF (None Seen); Urine Urobilinogen Normal (Normal)
--- NOTE | 2022-12-16 20:04 | RAD REPORT ---
EXAM DESCRIPTION: CT - Thorax Wo Con - 12/16/2022 4:11 pm CLINICAL HISTORY: R O PNA COMPARISON: Chest For Pe Angio dated 01/22/2021; Chest For Pe Angio dated 01/14/2021 TECHNIQUE: Axial thin cut images of the chest were obtained without IV contrast. Multiplanar reforma ts were generated and reviewed. All CT scans are performed using dose optimization technique as appropriate and may include automated exposure control or mA/KV adjustment according to patient size. FINDINGS: Patchy posterior right lower lobe consolidation with mild air bronchograms and surrounding patchy ground-glass opacification. Single focus of ground-glass opacification in the left lower lobe , axial image 48/69. Background moderate centrilobular emphysematous changes. Scattered platelike ate lectatic changes. No pleural thickening or pleural effusion. No pneumothorax. Mildly prominent mediastinal lymph nodes, the largest in the subcarinal region, measuring 1.[address], probably reactive or inflammatory. No significant aortic or pulmonary artery findings. Assessmen t is limited in the absence of IV contrast. No chest wall mass or abnormal axillary lymphadenopathy. Evaluation of the solid abdominal structures reveals no suspicious findings. Stable exophytic right r enal 6.2 centimeter cyst. IMPRESSION: Bibasilar airspace opacities, more extensive in the right lower lobe, favoring an infect ious or inflammatory process, such as pneumonia. Imaging follow-up following resolution of the abnorm alities is recommended. Other incidental findings as above.
[2022-12-16] MEDS ORDERED: FAMOTIDINE 20 MG/2 ML VIAL IV ONE (21:50)
[2022-12-17] MEDS ORDERED: POTASSIUM CL SA 10 MEQ TAB PO ONE ×3 (00:03→09:00)
[2022-12-17] MEDS: ACETAMINOPHEN 325 MG TABLET PO PRN ×2 (00:21→06:18)
[2022-12-17 03:46] LABS: Absolute Lymphocytes (CBC) 0.9 K/uL (0.7-4.9); Hematocrit 34.1 % (39.6-49.0); MCV 91.1 fL (80-100); MPV 8.5 fL (7.6-11.3); RBC Red Blood Cell Count 3.74 M/uL (4.33-5.43)
[2022-12-17 03:59] LABS: Potassium 3.6 mEq/L (3.5-5.1)
--- NOTE | 2022-12-17 06:59 | P.PN ---
Date of Service: 12/17/22 Subjective: doing okay today, +cough, +shortness of breath stamina/endurance improving febrile (103.1) overnight no new/worsening symptoms ROS: 10 point ROS as noted above, otherwise negative Physical Exam: GEN: Alert, oriented, NAD HEENT: Normal conjunctiva, sclera anicteric CV: Regular rate and rhythm, no edema Pulm: Nonlabored respirations on room air, diminished at bases b/l ABD: Soft, nontender, nondistended Neuro: Normal speech, normal affect vitals reviewed Problem List: Pneumonia CXR (12/16): Right base is mildly hazy which may indicate a mild infiltrate CT chest (12/16): Bibasilar airspace opacities, more extensive in the right lower lobe, favoring an infectious or inflammatory process, such as pneumonia given cefepime and vanc in ED, now DCd continue on rocephin/azithromycin (12/17-) Blood cultures pending Pulmonology consulted antitussives and nebs as needed leukocytosis improving febrile overnight (103.1) NIDDM2 with hyperglycemia. BS monitoring with sliding scale insulin. Hypokalemia. Replete as needed. Anemia of chronic disease. H&H stable. transfuse if < 7.0. Nausea and vomiting. Antiemetics on board. CKD 2. Stable. monitor renal function Hyponatremia. slowly improving VTE: Lovenox Code: Full Dispo: home 1-2 days
--- NOTE | 2022-12-17 08:28 | P.CNS ---
Date of Consult: 12/17/22 Reason for Consult: Pneumonia Chief Complaint: Fever, generalized weakness History of Present Illness: It is 72 years of age has been sick for the past 4 to 5 days complaining of fever chills cough shortness of breath in the hospital with acute right lower lo be pneumonia in addition to an elevated white count Allergies No Known Allergies Allergy (Verified 01/22/21 12:43) Home Medications: Gabapentin [Neurontin*] 100 mg PO DAILY 01/24/21 Metformin HCl [Glucophage*] 500 mg PO BID 01/24/21 Apixaban [Eliquis] 10 mg PO BID #70 tablet 01/25/21 Cefdinir [Omnicef] 300 mg PO BID #20 capsule 01/25/21 - Past Medical/Surgical History Diabetic: Yes -: Type 2 diabetes -: Hypothyroidism -: Tonsillectomy - Family History Father History Unknown: Yes Mother Medical History: Cancer - Social History Smoking Status: Unknown if ever smoked Alcohol use: No CD- Drugs: No Caffeine use: No Place of Residence: Home Review of Systems 10-point ROS is otherwise unremarkable General: Weakness Respiratory: Cough, Shortness of Breath Physical Examination Temp Pulse Resp BP Pulse Ox 100.4 F 74 17 138/58 L 98 12/17/22 06:18 12/17/22 04:00 12/17/22 04:00 12/17/22 04:00 12/17/22 04:00 General: Alert, In no apparent distress, Oriented x3 Neck: Supple Respiratory: Crackles/rales (Crackles at the right base) Gastrointestinal: Normal bowel sounds, Soft and benign Laboratory Data (last 24 hrs) 12/16/22 11:15: Phosphorus 1.6 L, Magnesium 2.0 12/16/22 11:15: PT 14.2 H, INR 1.29, APTT 28.1 12/16/22 11:15: Sodium 127 L, Potassium 3.4 L, BUN 21 H, Creatinine 1.06, Glucose 266 H, Total Bilirubin 1.0, AST 19, ALT 23, Alkaline Phosphatase 59 12/16/22 11:15: WBC 16.90 H, Hgb 12.4 L, Hct 37.0 L, Plt Count 313 - Problems (1) Pneumonia Current Visit: Yes Status: Acute Plan: Patient is 72 years of age admitted with acute right lower lobe pneumonia associated with fever elevated white count CT scan reviewed Yasmin is unremarkable denies fever continue with IV antibiotics once afebrile changed to p.o. antibiotics patient is hemodynamically stable doing well off oxygen he is an ex-smoker about 5 years ago vital signs are stable Qualifiers: Pneumonia type: due to unspecified organism
[2022-12-17] MEDS: ASPIRIN 81 MG CHEWABLE TABLET PO SCH (08:52)
[2022-12-17] MEDS: INSULIN -REGULAR HUMAN 50 UNIT/0.5 ML ML SQ SCH ×4 (08:53→19:56)
[2022-12-17] MEDS: CEFTRIAXONE 1,000 MG in NA CHLORIDE 0.9% 50 ML IVPB SCH (08:54)
[2022-12-17] MEDS: AZITHROMYCIN IV 500 MG in NA CHLORIDE 0.9% 250 ML IVPB SCH (08:55)
[2022-12-17] MEDS: ENOXAPARIN 40 MG/0.4 ML SQ SCH (16:25)
[2022-12-17] MEDS ORDERED: SODIUM CHLORIDE 0.9% 10ML INJ IV PRN (17:46)
[2022-12-17] MEDS: PANTOPRAZOLE 40 MG INJ IVP SCH (19:56)
[2022-12-17] MEDS: HYDROCODONE/APAP 5/325 MG TAB PO PRN (20:59)
[2022-12-17] MEDS ORDERED: FAMOTIDINE 20 MG/2 ML VIAL IV ONE (21:41)
[2022-12-18 03:46] LABS: Hematocrit 35.1 % (39.6-49.0); MCV 89.9 fL (80-100); MPV 8.7 fL (7.6-11.3)
[2022-12-18 04:00] LABS: Magnesium 2.2 mg/dL (1.6-2.4); Potassium 3.5 mEq/L (3.5-5.1)
[2022-12-18] MEDS ORDERED: POTASSIUM CL SA 10 MEQ TAB PO ONE (04:35)
[2022-12-18] MEDS: HYDROCODONE/APAP 5/325 MG TAB PO PRN (04:41)
--- NOTE | 2022-12-18 06:53 | P.PN ---
Date of Service: 12/18/22 Subjective: ROS: 10 point ROS as noted above, otherwise negative Physical Exam: GEN: Alert, oriented, NAD HEENT: Normal conjunctiva, sclera anicteric CV: Regular rate and rhythm, no edema Pulm: Nonlabored respirations on room air, diminished at bases b/l ABD: Soft, nontender, nondistended Neuro: Normal speech, normal affect vitals reviewed Problem List: Pneumonia CXR (12/16): Right base is mildly hazy which may indicate a mild infiltrate CT chest (12/16): Bibasilar airspace opacities, more extensive in the right lower lobe, favoring an infectious or inflammatory process, such as pneumonia given cefepime and vanc in ED, now DCd continue on rocephin/azithromycin (12/17-) Blood cultures pending Pulmonology consulted antitussives and nebs as needed leukocytosis improving febrile overnight (103.1) NIDDM2 with hyperglycemia. BS monitoring with sliding scale insulin. Hypokalemia. Replete as needed. Anemia of chronic disease. H&H stable. transfuse if < 7.0. Nausea and vomiting. Antiemetics on board. CKD 2. Stable. monitor renal function Hyponatremia. slowly improving VTE: Lovenox Code: Full Dispo: home 1-2 days
[2022-12-18] MEDS: INSULIN -REGULAR HUMAN 50 UNIT/0.5 ML ML SQ SCH (07:30)
[2022-12-18] MEDS: ASPIRIN 81 MG CHEWABLE TABLET PO SCH (08:27)
[2022-12-18] MEDS: PANTOPRAZOLE 40 MG INJ IVP SCH (08:28)
[2022-12-18] MEDS: CEFTRIAXONE 1,000 MG in NA CHLORIDE 0.9% 50 ML IVPB SCH (08:30)
[2022-12-18] MEDS: AZITHROMYCIN IV 500 MG in NA CHLORIDE 0.9% 250 ML IVPB SCH (08:32)
[2022-12-18 09:01] VITALS: BP 128/63; TEMP 97.5
--- NOTE | 2022-12-18 09:08 | P.DS ---
Admission Date: 12/16/22 Discharge Date: 12/18/22 Reason for Admission: Fever, generalized weakness Consultations: Pulmonology - Dr. Yeung Brief History of Present Illness: 72yo M, PMH: DM 2, hypothyroidism Patient presents with complaint of fever and generalized weakness that has been ongoing for the past 4 days. Patient reported associated signs and symptoms of cough, nausea and vomiting. Patient denies any other signs and symptoms. Symptoms are aggravated or relieved by nothing. Patient decided to present to the hospital due to worsening symptoms. Patient also states he has had foul- smelling urine over the last several days. Patient also states he had mild abdominal pain earlier which is now resolved. Hospital Course: Problem List: Pneumonia NIDDM2 with hyperglycemia Hypokalemia Anemia of chronic disease Nausea and vomiting CKD 2 Hyponatremia Patient presented with fever, generalized weakness. Imaging indicated Bibasilar airspace opacities, more extensive in the right lower lobe, favoring an infectious or inflammatory process, such as pneumonia. Pulmonology was consulted. Patient was treated with IV rocephin and Azithromycin and had improvement of his symptoms. Blood cultures were without growth, however final results pending upon discharge. On day of discharge, patient remained afebrile, breathing improved, and leukocyotsis continued to improve. On day of discharge, patient felt much better, pulmonology deemed patient stable for discharge home with 1-2 week follow up and to complete 7 days of Levofloxacin New Prescription: Levofloxacin for 7 days Follow up: PCP 3-5 days Pulmonology within 1-2 weeks Physical Exam: GEN: Alert, oriented, NAD HEENT: Normal conjunctiva, sclera anicteric CV: Regular rate and rhythm, no edema Pulm: Nonlabored respirations on room air ABD: Soft, nontender, nondistended MSK: No joint tenderness Integumentary: no rashes Neuro: Normal speech, normal affect Vital Signs/Physical Exam: Temp Pulse Resp BP Pulse Ox 97.5 F 74 18 128/63 95 12/18/22 08:00 12/18/22 08:00 12/18/22 08:00 12/18/22 08:00 12/18/22 08:00 Laboratory Data at Discharge: WBC 12.50 thou/uL (4.3-10.9) H 12/18/22 02:39 Hgb 12.0 g/dL (13.6-17.9) L 12/18/22 02:39 Hct 35.1 % (39.6-49.0) L 12/18/22 02:39 Plt Count 292 thou/uL (152-406) 12/18/22 02:39 PT 14.2 SECONDS (9.5-12.5) H 12/16/22 11:15 INR 1.29 12/16/22 11:15 APTT 28.1 SECONDS (24.3-36.9) 12/16/22 11:15 Sodium 131 mEq/L (136-145) L 12/18/22 02:39 Potassium 3.5 mEq/L (3.5-5.1) 12/18/22 02:39 BUN 15 mg/dL (7-18) 12/18/22 02:39 Creatinine 0.62 mg/dL (0.70-1.30) L 12/18/22 02:39 Glucose 133 mg/dL (74-106) H 12/18/22 02:39 Phosphorus 1.6 mg/dL (2.5-4.9) L 12/16/22 11:15 Magnesium 2.2 mg/dL (1.6-2.4) 12/18/22 02:39 Total Bilirubin 1.0 mg/dL (0.2-1.0) 12/16/22 11:15 AST 19 U/L (15-37) 12/16/22 11:15 ALT 23 U/L (16-61) 12/16/22 11:15 Alkaline Phosphatase 59 U/L (45-117) 12/16/22 11:15 Triglycerides 132 mg/dL (<150) 12/17/22 03:07 Cholesterol 145 mg/dL (<200) 12/17/22 03:07 HDL Cholesterol 30 mg/dL (40-60) L 12/17/22 03:07 Cholesterol/HDL Ratio 4.83 12/17/22 03:07 Home Medications: Gabapentin [Neurontin*] 100 mg PO DAILY 01/24/21 Metformin HCl [Glucophage*] 500 mg PO BID 01/24/21 levoFLOXacin [Levaquin] 750 mg PO DAILY 7 Days #7 tab 12/18/22 New Medications: levoFLOXacin [Levaquin] 750 mg PO DAILY 7 Days #7 tab Physician Discharge Instructions: Patient presented with fever, generalized weakness. Imaging indicated Bibasilar airspace opacities, more extensive in the right lower lobe, favoring an infectious or inflammatory process, such as pneumonia. Pulmonology was consulted. Patient was treated with IV rocephin and Azithromycin and had improvement of his symptoms. Blood cultures were without growth, however final results pending upon discharge. On day of discharge, patient remained afebrile, breathing improved, and leukocyotsis continued to improve. On day of discharge, patient felt much better, pulmonology deemed patient stable for discharge home with 1-2 week follow up and to complete 7 days of Levofloxacin New Prescription: Levofloxacin for 7 days Follow up: PCP 3-5 days Pulmonology within 1-2 weeks Followup: Devonte Yeung MD [ACTIVE - CAN ADMIT] - Yandel Sher DO [Primary Care Provider] - Time spent managing pt's care (in minutes): 45
[2022-12-18 09:26] VITALS: O2SAT 95
--- NOTE | 2022-12-18 19:16 | EKG ---
Test Date: 2022-12-16 Test Time: 11:33:51 Business Management Manager: LIN MEASUREMENT RESULTS: Intervals: Rate: 89 VT: 152 QRSD: 98 QT: 396 QTc: 481 Donald: P: 61 VT: 152 QRS: 34 T: 48 INTERPRETIVE STATEMENTS: Normal sinus rhythm Nonspecific ST and T wave abnormality Abnormal ECG Compared to ECG 01/24/2021 01:01:33 Atrial fibrillation no longer present ST (T wave) deviation still present Electronically Signed On 12-18-22 19:11:44 CDT by Jay Mcghee
== END 2022-12-18 10:19 | disposition home health service (06) | DRG 194 ==
LOC: ER 10:50 → ERHOLD 13:25 → 2ND 14:19
PROVIDERS: ADMIT Internal Medicine; ATTEND Hospitalist
DX: J18.9 Pneumonia, unspecified organism (principal); E87.1 Hypo-osmolality and hyponatremia; N39.0 Urinary tract infection, site not specified; E11.22 Type 2 diabetes mellitus with diabetic chronic kidney disease; E11.65 Type 2 diabetes mellitus with hyperglycemia; N18.2 Chronic kidney disease, stage 2 (mild); E87.6 Hypokalemia; D63.8 Anemia in other chronic diseases classified elsewhere; R11.2 Nausea with vomiting, unspecified; E03.9 Hypothyroidism, unspecified; Z79.01 Long term (current) use of anticoagulants; Z79.84 Long term (current) use of oral hypoglycemic drugs; Z79.899 Other long term (current) drug therapy; Z28.310 Unvaccinated for COVID-19; Z20.822 Contact with and (suspected) exposure to COVID-19; Z80.9 Family history of malignant neoplasm, unspecified
CPT/HCPCS: 36415; 71045; 71250; 80048; 80053; 80061; 81001; 82947; 83605; 83735; 83930; 83935; 84100; 84132; 84300; 84439; 84443; 85025; 85027; 85610; 85730; 87040; 87804; 87811; 93005; 96365; 96375; 99285; C9113; J0692; J0696; J1650; J1815; J2405; J7030; J7050